=== PATIENT | female | born 1975 | race Caucasian/White ===

== ENCOUNTER 2022-12-28 06:31 | Emergency (ER) | payer SELFPAY ==
[2022-12-28] VITALS (13 sets, daily range): BP systolic 117–170; BP diastolic 88–112; PULSE 83–138; RESP 14–37; TEMP 36.9; O2SAT 93–100
[2022-12-28] MEDS: ONDANSETRON 4 MG/2 ML INJ IV (07:08)
[2022-12-28] MEDS: SODIUM CHLORIDE 0.9% 1,000 ML 1000 ML IV ×2 (07:08→09:35)
[2022-12-28] MEDS: PANTOPRAZOLE 40 MG VIAL 80 MG IV (07:08)
--- NOTE | 2022-12-28 07:19 | ED.GIBLEED ---
HPI - GI Bleed General Chief complaint: GI Bleed Stated complaint: vomiting blood Time Seen by Provider: 12/28/22 06:36 Source: patient Mode of arrival: Wheelchair History of Present Illness HPI Narrative: Patient 47-year-old female who presents today with what she calls dark red blood nausea vomiting. She has definite slurring of speech reports of 1 glass of wine daily but I suspect more she seems to be very intoxicated. She denies any history of varices. She has no specific abdominal pain she is actually shaky. No jaundice. No fever. Her partner at bedside is very worried but not a great historian Related Data Previous Rx's Medication Instructions Recorded ondansetron 4 mg disintegrating 4 mg PO Q8H PRN nausea and 12/28/22 tablet vomiting #10 tabs Allergies Allergy/AdvReac Type Severity Reaction Status Date / Time codeine Allergy Verified 12/28/22 07:18 morphine Allergy Verified 12/28/22 07:18 Penicillins Allergy Verified 12/28/22 07:18 Review of Systems Review of Systems ROS Unobtainable: All systems reviewed & are unremarkable except as noted in HPI and below Patient History Social History Smoking Status: Current every day smoker Smoking Status: Current every day smoker alcohol intake frequency: 0-2 drinks per day Substance Use Type: crack/cocaine Exam Initial Vital Signs Initial Vital Signs: Vital Signs Temperature 98.5 F 12/28/22 06:40 Pulse Rate 138 H 12/28/22 06:40 Respiratory Rate 16 12/28/22 06:40 Blood Pressure 117/88 12/28/22 06:40 Pulse Oximetry 97 12/28/22 06:40 Oxygen Delivery Method Room Air 12/28/22 06:40 GENERAL: Alert intoxicated appearing 47-year-old female, stuttering and slurring of speech HEENT: Head atraumatic,EOMI, pupils reactive, face symmetric, moist mucous membranes CARDIOVASCULAR: Tachycardic regular RESPIRATORY: Breath sounds equal bilaterally, no wheezes rales or rhonchi. ABDOMEN: Soft, nontender. Normoactive bowel sounds all 4 quadrants. No guarding or rebound. EXTREMITIES: Normal range of motion, no clubbing or edema. Neurovascularly intact NEUROLOGICAL: Alert and oriented x4. Moving all extremities shaking tremors SKIN: Warm, dry, no laceration, no petechiae, no rashes or lesions. Course Orders Ordered: ED Orders 12/28/22 07:10 Acetaminophen Stat Complete Blood Count AUTO DIFF Stat Comprehensive Metabolic Panel Stat ETOH [Ethanol (ETOH)] Stat Lactate (Lactic Acid) Stat Lipase Stat Lipase Stat PT [Prothrombin Time INR] Stat PTT Partial Thromboplastin Aryan Stat Test Serum,Qual Stat Procalcitonin Stat Salicylate Stat 12/28/22 07:30 Ammonia (NH3) Stat Type and Screen Stat 12/28/22 07:39 CT angio Abd/Pel GI Bleed Stat 12/28/22 08:10 Urinalysis and Microscopic Stat Urine Culture Stat Urine Drug Screen, Rapid Stat 12/28/22 08:46 Stool Culture Stat 12/28/22 09:25 EKG-12 Lead Routine 12/28/22 09:39 Hemoglobin and Hematocrit Stat 12/28/22 11:22 Lactate (Lactic Acid) Stat Discontinued Medications Sodium Chloride (Normal Saline 0.9%) 1,000 mls @ 1,000 mls/hr IV BOLUS ONE Stop: 12/28/22 07:36 Last Infusion: 12/28/22 08:30 Dose: Infused Documented By: Admin: 12/28/22 07:08 Dose: 1,000 mls/hr Documented By: KACEY Sodium Chloride (Normal Saline 0.9%) 1,000 mls @ 1,000 mls/hr IV BOLUS ONE Stop: 12/28/22 10:12 Last Infusion: 12/28/22 10:30 Dose: Infused Documented By: Admin: 12/28/22 09:35 Dose: 1,000 mls/hr Documented By: HIREN Ceftriaxone Sodium 1,000 mg/ (Sodium Chloride) 100 mls @ 200 mls/hr IV NOW ONE Stop: 12/28/22 09:14 Last Infusion: 12/28/22 10:24 Dose: Infused Documented By: Admin: 12/28/22 09:34 Dose: 200 mls/hr Documented By: HIREN POTASSIUM CHLORIDE IN WATER (Potassium Cl 10 Meq/100 Ml Ashley) 10 meq in 100 mls @ 100 mls/hr IV Q1H AUBREY Stop: 12/28/22 14:29 Last Admin: 12/28/22 11:49 Dose: Not Given Documented By: Admin: 12/28/22 11:48 Dose: Not Given Documented By: Infusion: 12/28/22 11:48 Dose: Infused Documented By: Admin: 12/28/22 10:37 Dose: 100 mls/hr Documented By: HIREN Lorazepam (Lorazepam 2 Mg/Ml Inj) 1 mg IV NOW ONE Stop: 12/28/22 07:26 Last Admin: 12/28/22 08:02 Dose: 1 mg Documented By: HIREN Ondansetron HCl (Ondansetron 4 Mg/2 Ml Inj) 4 mg IV NOW ONE Stop: 12/28/22 06:38 Last Admin: 12/28/22 07:08 Dose: 4 mg Documented By: KACEY Pantoprazole Sodium (Pantoprazole 40 Mg Vial) 80 mg IV NOW ONE Stop: 12/28/22 06:56 Last Admin: 12/28/22 07:08 Dose: 80 mg Documented By: KACEY Potassium Chloride (Potassium Chloride 20 Meq Tab) 40 meq PO NOW ONE Stop: 12/28/22 10:32 Last Admin: 12/28/22 10:35 Dose: 40 meq Documented By: HIREN Vital Signs Vital signs: Vital Signs - 8 hr 12/28/22 06:40 12/28/22 07:20 12/28/22 07:22 Temperature 98.5 F Pulse Rate 138 H 95 H 92 H Respiratory Rate 16 26 H 27 H Blood Pressure 117/88 Pulse Oximetry 97 100 100 Oxygen Delivery Method Room Air 12/28/22 07:22 12/28/22 07:30 12/28/22 07:30 Temperature Pulse Rate 97 H Respiratory Rate Blood Pressure 161/107 H 170/112 H Pulse Oximetry 100 Oxygen Delivery Method 12/28/22 08:05 12/28/22 08:06 12/28/22 08:06 Temperature Pulse Rate 89 85 Respiratory Rate 17 14 Blood Pressure 148/94 H Pulse Oximetry 99 100 Oxygen Delivery Method 12/28/22 08:30 12/28/22 09:00 12/28/22 09:30 Temperature Pulse Rate 94 H 86 97 H Respiratory Rate 37 H 18 18 Blood Pressure Pulse Oximetry 99 98 98 Oxygen Delivery Method 12/28/22 10:00 12/28/22 10:30 12/28/22 11:00 Temperature Pulse Rate 89 105 H 83 Respiratory Rate 26 H 20 18 Blood Pressure Pulse Oximetry 98 93 99 Oxygen Delivery Method 12/28/22 11:11 12/28/22 11:11 Temperature Pulse Rate 88 Respiratory Rate 25 H Blood Pressure 149/105 H Pulse Oximetry 99 Oxygen Delivery Method MDM - GI Bleed Lab Data 12/28/22 09:39 12/28/22 07:10 Labs: Lab Results 12/28/22 12/28/22 12/28/22 Range/Units 07:10 07:10 07:30 WBC 2.2 L (4.5-11.0) X10^3/uL RBC 4.27 (4.0-5.2) X10^6/uL Hgb 14.6 (12.0-16.0) g/dL Hct 41.8 (36-46) % MCV 97.8 (80-100) fL MCH 34.3 H (26-34) PG MCHC 35.0 (30-36) % RDW 11.2 L (11.6-14.8) % Plt Count 67 L (150-400) X10^3/uL Neut % (Auto) Not Reportable Lymph % (Auto) Not Reportable [place] % (Auto) Not Reportable Eos % (Auto) Not Reportable Baso % (Auto) Not Reportable Lymph # (Auto) Not Reportable [place] # (Auto) Not Reportable Baso # (Auto) Not Reportable Total Counted 100 Seg Neutrophils % 46.0 (38-70) % Band Neutrophils % 1.0 L (3-7) % Lymphocytes % (Manual) 34.0 (25-45) % Monocytes % (Manual) 13.0 H (2-11) % Eosinophils % (Manual) 3.0 (2-4) % Basophils % (Manual) 1.0 (0-1) % Metamyelocytes % 2.0 H (-0) % Neutrophils # (Manual) 1034 L (9923-1063) /uL RBC Morphology Normal morphology PT 12.7 (10.1-12.7) SECONDS INR 1.1 (0.9-1.3) APTT 27 (26-36) SECONDS Sodium 134 L (137-145) mmol/L Potassium 2.8 L (3.4-5.1) mmol/L Chloride 91 L (98-107) mmol/L Carbon Dioxide 27 (22-32) mmol/L BUN 6 L (7-17) mg/dL Creatinine 0.63 (0.52-1.04) mg/dL Estimated GFR > 60 (>60) mL/min BUN/Creatinine Ratio 9.5 (6-22) Glucose 78 (70-100) mg/dL Lactate 3.4 H (0.7-2.1) mmol/L Calcium 9.0 (8.4-10.2) mg/dL Total Bilirubin 2.5 H (0.2-1.3) mg/dL AST 135 H (14-36) IU/L ALT 40 H (<35) IU/L Alkaline Phosphatase 81 (38-126) U/L Ammonia 12 (9-30) umol/L Total Protein 7.3 (6.3-8.2) g/dL Albumin 4.2 (3.5-5.0) g/dL Globulin 3.1 (1.7-4.1) g/dL Albumin/Globulin Ratio 1.4 (1.0-2.8) Lipase 250 246 (23-300) U/L Procalcitonin 0.11 (<0.5) ng/mL Serum , Qual Negative (Negative) Urine Color Urine Appearance Urine pH (4.5-8.0) Ur Specific [place] (1.000-1.035) Urine Protein (Negative) Urine Glucose (UA) (Negative) g/dL Urine Ketones (NEGATIVE) Urine Occult Blood (Negative) Urine Nitrate (Negative) Urine Bilirubin (NEGATIVE) Urine Urobilinogen (0.2) E.U./dL Ur Leukocyte Esterase (NEGATIVE) Urine RBC (0-5/HPF) Urine WBC (0-5/HPF) Ur Squamous Epith Cells (0-5/HPF) Urine Bacteria (None) Ur Culture Indicated? Salicylates < 1.0 (<20) mg/dL U Opiates 300ng/mL cut (Negative) Ur Oxycodone Screen (Negative) Urine Methadone Screen (Negative) Acetaminophen < 10 (10-30) ug/mL Ur Barbiturates Screen (Negative) U Tricyclic Antidepress (Negative) Ur Phencyclidine Scrn (Negative) Ur Amphetamines Screen (Negative) U Methamphetamines Scrn (Negative) Ur MDMA Scrn (Ecstasy) (Negative) U Benzodiazepines Scrn (Negative) Urine Cocaine Screen (Negative) U Marijuana (THC) Screen (Negative) Ethyl Alcohol 230 H ( - 10) mg/dL Blood Type A Positive Antibody Screen Negative 12/28/22 12/28/22 12/28/22 Range/Units 08:10 09:06 09:39 WBC (4.5-11.0) X10^3/uL RBC (4.0-5.2) X10^6/uL Hgb 14.0 (12.0-16.0) g/dL Hct 40.2 (36-46) % MCV (80-100) fL MCH (26-34) PG MCHC (30-36) % RDW (11.6-14.8) % Plt Count (150-400) X10^3/uL Neut % (Auto) Lymph % (Auto) [place] % (Auto) Eos % (Auto) Baso % (Auto) Lymph # (Auto) [place] # (Auto) Baso # (Auto) Total Counted Seg Neutrophils % (38-70) % Band Neutrophils % (3-7) % Lymphocytes % (Manual) (25-45) % Monocytes % (Manual) (2-11) % Eosinophils % (Manual) (2-4) % Basophils % (Manual) (0-1) % Metamyelocytes % (-0) % Neutrophils # (Manual) (3460-0415) /uL RBC Morphology PT (10.1-12.7) SECONDS INR (0.9-1.3) APTT (26-36) SECONDS Sodium (137-145) mmol/L Potassium (3.4-5.1) mmol/L Chloride (98-107) mmol/L Carbon Dioxide (22-32) mmol/L BUN (7-17) mg/dL Creatinine (0.52-1.04) mg/dL Estimated GFR (>60) mL/min BUN/Creatinine Ratio (6-22) Glucose (70-100) mg/dL Lactate 2.8 H (0.7-2.1) mmol/L Calcium (8.4-10.2) mg/dL Total Bilirubin (0.2-1.3) mg/dL AST (14-36) IU/L ALT (<35) IU/L Alkaline Phosphatase (38-126) U/L Ammonia (9-30) umol/L Total Protein (6.3-8.2) g/dL Albumin (3.5-5.0) g/dL Globulin (1.7-4.1) g/dL Albumin/Globulin Ratio (1.0-2.8) Lipase (23-300) U/L Procalcitonin (<0.5) ng/mL Serum , Qual (Negative) Urine Color Yellow Urine Appearance Clear Urine pH 6.5 (4.5-8.0) Ur Specific [place] 1.010 (1.000-1.035) Urine Protein Negative (Negative) Urine Glucose (UA) Negative (Negative) g/dL Urine Ketones 1+ H (NEGATIVE) Urine Occult Blood Negative (Negative) Urine Nitrate Positive H (Negative) Urine Bilirubin Negative (NEGATIVE) Urine Urobilinogen 4.0 H (0.2) E.U./dL Ur Leukocyte Esterase Negative (NEGATIVE) Urine RBC None seen (0-5/HPF) Urine WBC 1-5/hpf (0-5/HPF) Ur Squamous Epith Cells 5-10 /hpf H (0-5/HPF) Urine Bacteria Moderate (10-30) H (None) Ur Culture Indicated? Specimen cultured Salicylates (<20) mg/dL U Opiates 300ng/mL cut Negative (Negative) Ur Oxycodone Screen Negative (Negative) Urine Methadone Screen Negative (Negative) Acetaminophen (10-30) ug/mL Ur Barbiturates Screen Negative (Negative) U Tricyclic Antidepress Negative (Negative) Ur Phencyclidine Scrn Negative (Negative) Ur Amphetamines Screen Negative (Negative) U Methamphetamines Scrn Negative (Negative) Ur MDMA Scrn (Ecstasy) Negative (Negative) U Benzodiazepines Scrn Negative (Negative) Urine Cocaine Screen Positive H (Negative) U Marijuana (THC) Screen Negative (Negative) Ethyl Alcohol ( - 10) mg/dL Blood Type Antibody Screen 12/28/22 Range/Units 11:22 WBC (4.5-11.0) X10^3/uL RBC (4.0-5.2) X10^6/uL Hgb (12.0-16.0) g/dL Hct (36-46) % MCV (80-100) fL MCH (26-34) PG MCHC (30-36) % RDW (11.6-14.8) % Plt Count (150-400) X10^3/uL Neut % (Auto) Lymph % (Auto) [place] % (Auto) Eos % (Auto) Baso % (Auto) Lymph # (Auto) [place] # (Auto) Baso # (Auto) Total Counted Seg Neutrophils % (38-70) % Band Neutrophils % (3-7) % Lymphocytes % (Manual) (25-45) % Monocytes % (Manual) (2-11) % Eosinophils % (Manual) (2-4) % Basophils % (Manual) (0-1) % Metamyelocytes % (-0) % Neutrophils # (Manual) (8579-1611) /uL RBC Morphology PT (10.1-12.7) SECONDS INR (0.9-1.3) APTT (26-36) SECONDS Sodium (137-145) mmol/L Potassium (3.4-5.1) mmol/L Chloride (98-107) mmol/L Carbon Dioxide (22-32) mmol/L BUN (7-17) mg/dL Creatinine (0.52-1.04) mg/dL Estimated GFR (>60) mL/min BUN/Creatinine Ratio (6-22) Glucose (70-100) mg/dL Lactate 2.4 H (0.7-2.1) mmol/L Calcium (8.4-10.2) mg/dL Total Bilirubin (0.2-1.3) mg/dL AST (14-36) IU/L ALT (<35) IU/L Alkaline Phosphatase (38-126) U/L Ammonia (9-30) umol/L Total Protein (6.3-8.2) g/dL Albumin (3.5-5.0) g/dL Globulin (1.7-4.1) g/dL Albumin/Globulin Ratio (1.0-2.8) Lipase (23-300) U/L Procalcitonin (<0.5) ng/mL Serum , Qual (Negative) Urine Color Urine Appearance Urine pH (4.5-8.0) Ur Specific [place] (1.000-1.035) Urine Protein (Negative) Urine Glucose (UA) (Negative) g/dL Urine Ketones (NEGATIVE) Urine Occult Blood (Negative) Urine Nitrate (Negative) Urine Bilirubin (NEGATIVE) Urine Urobilinogen (0.2) E.U./dL Ur Leukocyte Esterase (NEGATIVE) Urine RBC (0-5/HPF) Urine WBC (0-5/HPF) Ur Squamous Epith Cells (0-5/HPF) Urine Bacteria (None) Ur Culture Indicated? Salicylates (<20) mg/dL U Opiates 300ng/mL cut (Negative) Ur Oxycodone Screen (Negative) Urine Methadone Screen (Negative) Acetaminophen (10-30) ug/mL Ur Barbiturates Screen (Negative) U Tricyclic Antidepress (Negative) Ur Phencyclidine Scrn (Negative) Ur Amphetamines Screen (Negative) U Methamphetamines Scrn (Negative) Ur MDMA Scrn (Ecstasy) (Negative) U Benzodiazepines Scrn (Negative) Urine Cocaine Screen (Negative) U Marijuana (THC) Screen (Negative) Ethyl Alcohol ( - 10) mg/dL Blood Type Antibody Screen Imaging Data CT scan - abdomen/pelvis: Radiologist's Impression: PROCEDURE: CT ANGIO ABD/PEL GI BLEED INDICATIONS: GI Bleed-vomiting TECHNIQUE: After the administration of intravenous contrast, 2.5 mm thick sections acquired from the diaphragm to the symphysis. 10 mm maximum-intensity projection (MIP) reformats were then acquired. For radiation dose reduction, the following was used: automated exposure control. COMPARISON: None. FINDINGS: Image quality: Excellent. Aorta: No areas of hemodynamically significant stenosis, vascular occlusion, aneurysmal dilation or dissection. Mesenteric arteries: Celiac trunk, superior and inferior mesenteric arteries appear patent. There are no areas of visualized extravasation. Right pelvic arteries: Widely patent. Left pelvic arteries: Widely patent. Extravascular soft tissues: Lung bases are clear. Heart size is normal. Liver is borderline enlarged with significant fatty infiltration. Gallbladder is unremarkable . Biliary system is non dilated. Pancreas enhances normally. Spleen is normal in size and enhancement. No adrenal nodules. Kidneys are normal in size and enhancement, without hydronephrosis. Non opacified bowel loops are normal in wall thickness and caliber. Stomach is diffusely thickened as well as incompletely distended. No free fluid or air. No retroperitoneal or mesenteric adenopathy. No ventral hernias. No suspicious bony lesions. No vertebral body compression fractures. Bilateral breast implants are present. IMPRESSION: No arterial cause of hemorrhage. Gastric rizzo are thickened with incomplete distention. This markedly limits evaluation. If this region remains of concern, further evaluation with endoscopy is recommended. Significant hepatic steatosis. Dictated by: Tessy Ballard M.D. on 12/28/2022 at 8:35 ECG Data Interpretation: Normal sinus rhythm rate 88 NE interval 140 QRS 82 QTC 505 MDM Narrative Medical decision making narrative: Patient 47-year-old female presents today with nausea vomiting. She is intoxicated with alcohol level 230 and a drug screen positive for cocaine. She has not vomited here in the ED after 1 dose of Zofran and Protonix. She actually has eating a donut and add something else to drink. She was given a dose of Ativan as well she is overall feeling better. Hemoglobin hematocrit 14/41, with repeat the same. Potassium is 2.8 with a lactate of 3.4 that improved with with fluids to 2.8. She has a bilirubin of 2.5 AST 135 ALT 40. Also noted to have leukopenia with platelets 67. Her labs would suggest that she is indeed an alcoholic. She is not vomiting bright red blood hemoglobin stable. Potassium is a little low. It was replaced she keeps down oral potassium in his given 20 IV. She was given Protonix. CT does not show any cause arterial hemorrhage gastric rizzo show incomplete distention and can not fully be evaluated She tolerated p.o. potassium she is been eating and drinking not in acute withdrawal at this time but did like the Ativan at this time she would like to go home which is very reasonable Discharge Plan Departure Patient Disposition: Home Clinical Impression: Alcohol intoxication, Cocaine use disorder, Acute hypokalemia, Thrombocytopenia Instructions: Alcohol Use Disorder Activity Restrictions/Additional Instructions: *You have been diagnosed with polysubstance use, vomiting, low potassium *What to do: At this time I do strongly recommend that you stop drinking alcohol. This is causing damage to your liver and your body. I strongly recommend that you go to detox if you decide to get sober. Do not quit alcohol on your own *Continue to take medications as directed *Follow up with your primary care provider in 2-3 days or call [phone] *Return to ER if you should have persistent vomiting or any new, worsening or concerning symptoms Prescriptions: New ondansetron 4 mg tablet,disintegrating 4 mg PO Q8H PRN (Reason: nausea and vomiting) Qty: 10 0RF Referrals: Miscellaneous,Doctor, MD [Primary Care Provider] - Stand Alone Forms: Patient Portal/API
[2022-12-28 07:25] LABS: Add Manual Diff / Slide Review YES; Hematocrit 41.8 % (36-46); Hemoglobin 14.6 g/dL (12.0-16.0); Mean Corpuscular Hemoglobin 34.3 PG (26-34); Mean Corpuscular Volume 97.8 fL (80-100); Platelet Count 67 X10^3/uL (150-400); Red Blood Cell Count 4.27 X10^6/uL (4.0-5.2); Red Cell Distribution Width 11.2 % (11.6-14.8); White Blood Cell Count 2.2 X10^3/uL (4.5-11.0)
[2022-12-28 07:29] LABS: INR 1.1 (0.9-1.3); Prothrombin Time 12.7 SECONDS (10.1-12.7)
[2022-12-28 07:32] LABS: PTT Partial Thromboplastin Tim 27 SECONDS (26-36)
[2022-12-28 07:34] LABS: Lactate (Lactic Acid) 3.4 mmol/L (0.7-2.1)
[2022-12-28 07:35] LABS: Alanine Aminotransferase 40 IU/L (<35); Albumin 4.2 g/dL (3.5-5.0); Albumin Globulin Ratio 1.4 (1.0-2.8); Alkaline Phosphatase 81 U/L (38-126); Aspartate Aminotransferase 135 IU/L (14-36); BUN Creatinine Ratio 9.5 (6-22); Bilirubin Total 2.5 mg/dL (0.2-1.3); Blood Urea Nitrogen 6 mg/dL (7-17); Carbon Dioxide 27 mmol/L (22-32); Chloride 91 mmol/L (98-107); Estimated Glomerular Filt Rate > 60 mL/min (>60); Globulin 3.1 g/dL (1.7-4.1); Glucose 78 mg/dL (70-100); HEMOLYSIS 26 (0-50); Potassium 2.8 mmol/L (3.4-5.1); Sodium 134 mmol/L (137-145); Total Protein 7.3 g/dL (6.3-8.2)
[2022-12-28 07:36] LABS: Ethanol (ETOH) 230 mg/dL; Lipase 250 U/L (23-300)
--- NOTE | 2022-12-28 07:39 | DI.CT.S_ITS ---
PROCEDURE: CT ANGIO ABD/PEL GI BLEED INDICATIONS: GI Bleed-vomiting TECHNIQUE: After the administration of intravenous contrast, 2.5 mm thick sections acquired from the diaphragm to the symphysis. 10 mm maximum-intensity projection (MIP) reformats were then acquired. For radiation dose reduction, the following was used: automated exposure control. COMPARISON: None. FINDINGS: Image quality: Excellent. Aorta: No areas of hemodynamically significant stenosis, vascular occlusion, aneurysmal dilation or dissection. Mesenteric arteries: Celiac trunk, superior and inferior mesenteric arteries appear patent. There are no areas of visualized extravasation. Right pelvic arteries: Widely patent. Left pelvic arteries: Widely patent. Extravascular soft tissues: Lung bases are clear. Heart size is normal. Liver is borderline enlarged with significant fatty infiltration. Gallbladder is unremarkable . Biliary system is non dilated. Pancreas enhances normally. Spleen is normal in size and enhancement. No adrenal nodules. Kidneys are normal in size and enhancement, without hydronephrosis. Non opacified bowel loops are normal in wall thickness and caliber. Stomach is diffusely thickened as well as incompletely distended. No free fluid or air. No retroperitoneal or mesenteric adenopathy. No ventral hernias. No suspicious bony lesions. No vertebral body compression fractures. Bilateral breast implants are present. IMPRESSION: No arterial cause of hemorrhage. Gastric rizzo are thickened with incomplete distention. This markedly limits evaluation. If this region remains of concern, further evaluation with endoscopy is recommended. Significant hepatic steatosis. Dictated by: Tessy Ballard M.D. on 12/28/2022 at 8:35 Approved by: Tessy Ballard M.D. on 12/28/2022 at 8:39
[2022-12-28 07:50] LABS: Ammonia (NH3) 12 umol/L (9-30)
[2022-12-28 07:51] LABS: Pregnancy Test Serum,Qual Negative (Negative)
[2022-12-28 07:52] LABS: Acetaminophen < 10 ug/mL (10-30); Lipase 246 U/L (23-300); Salicylate < 1.0 mg/dL (<20)
--- NOTE | 2022-12-28 07:57 | PC.NURSE ---
Pt reports that she has been experiencing ongoing nausea and bloody vomit. Describes the emisis as blood streaks and coffee grounds and states that she has a 10/10 pain in abd. Pt states that she often has bloody emisis and stools and that it has been happening for weeks and they have been to [facility] emergency dept multiple times. Pt stuttering and slurring her words and having difficulty formulating sentences. Pt reports not using any drugs but admittedly her last drink was last night but could not remember what time. Pt partner at bedside.
[2022-12-28] MEDS: LORazepam 2 MG/ML INJ 1 MG IV (08:02)
[2022-12-28 08:05] LABS: Neutrophils Absolute Manual 1034 /uL (3000-5900); Total Cells Counted 100
[2022-12-28 08:06] LABS: RBC Morphology Normal Morphology
[2022-12-28 08:09] LABS: Procalcitonin 0.11 ng/mL (<0.5)
[2022-12-28 08:46] LABS: Appearance Urine UA CLEAR; Bilirubin Urine UA NEGATIVE (NEGATIVE); Color Urine UA YELLOW; Glucose Urine UA NEGATIVE (Negative); Ketones Urine UA 1+ (NEGATIVE); Leukocyte Esterase Urine UA NEGATIVE (NEGATIVE); Nitrite Urine UA POSITIVE (Negative); Occult Blood Urine UA NEGATIVE (Negative); Protein Urine UA NEGATIVE (Negative); pH Urine UA 6.5 (4.5-8.0)
[2022-12-28 08:48] LABS: UR Morphine/Opiate cutoff 300 Negative (Negative); Ur Creatinine Normal (Normal); Ur Specific Gravity Normal (Normal); Urine Amphetamines Negative (Negative); Urine Barbiturates Negative (Negative); Urine Benzodiazepines Negative (Negative); Urine Cocaine Positive (Negative); Urine MDMA Negative (Negative); Urine Methadone Negative (Negative); Urine Methamphetamines Negative (Negative); Urine Oxycodone Negative (Negative); Urine Phencyclidine Negative (Negative); Urine Tetrahydrocannabinol Negative (Negative); Urine Tricyclic Antidepressant Negative (Negative); Urine pH Normal (Normal)
[2022-12-28 08:51] LABS: Bacteria Urine Moderate (10-30); Culture Indicated Urine Specimen Cultured; RBC Urine None Seen (0-5/HPF); Squamous Epithelial Cell Urine 5-10 /HPF (0-5/HPF); WBC Urine 1-5/HPF (0-5/HPF)
[2022-12-28 08:56] LABS: Reflexed Lactate in 2 Hours Y
[2022-12-28 09:24] LABS: Lactate 2HR (Lactic Acid Rflx) 2.8 mmol/L (0.7-2.1)
[2022-12-28] MEDS: cefTRIAXone 1,000 MG in SODIUM CHLORIDE 0.9% 100 ML 200 MG IV (09:34)
[2022-12-28 09:50] LABS: Hematocrit 40.2 % (36-46)
[2022-12-28] MEDS: POTASSIUM CHLORIDE 20 MEQ TAB 40 MEQ PO (10:35)
[2022-12-28] MEDS: POTASSIUM CHLORIDE IN WATER 10 MEQ/100 ML PIGGYBACK 100 MEQ IV (10:37)
[2022-12-28 11:45] LABS: Lactate (Lactic Acid) 2.4 mmol/L (0.7-2.1)
--- NOTE | 2022-12-28 11:50 | PC.NURSE ---
Only one bag of potassium chloride 10meq infused per dr ramos.
[2022-12-28 13:11] LABS: Reflexed Lactate in 2 Hours Y
== END 2022-12-28 11:45 | disposition home or self-care (01) ==
PROVIDERS: Emergency Medicine; Emergency Provider Emergency Medicine
DX: F10.129 Alcohol abuse with intoxication, unspecified (principal); Y90.7 Blood alcohol level of 200-239 mg/100 ml; F14.10 Cocaine abuse, uncomplicated; E87.6 Hypokalemia; D69.6 Thrombocytopenia, unspecified
CPT/HCPCS: 36415; 74174; 80053; 80305; 80320; 80329; 81001; 82140; 83605; 83690; 84145; 84703; 85007; 85014; 85018; 85025; 85610; 85730; 86850; 86900; 86901; 87086; 93005; 93010; 96361; 96365; 96375; 99284; C9113; G0480; J0696; J2060; J2405; Q9967

== ENCOUNTER 2023-01-14 17:10 | Emergency (ER) | payer SELFPAY ==
[2023-01-14] VITALS (8 sets, daily range): BP systolic 138–172; BP diastolic 85–98; PULSE 79–95; RESP 15–20; TEMP 36.6; O2SAT 93–99; BMI 20.1
--- NOTE | 2023-01-14 17:43 | DI.RAD.S_ITS ---
PROCEDURE: XR CHEST 1V INDICATIONS: syncope TECHNIQUE: One view of the chest was acquired. COMPARISON: None. FINDINGS: Surgical changes and devices: None. Lungs and pleura: Lungs are clear. No pleural effusions or pneumothorax. Mediastinum: Mediastinal contours appear normal. Heart size is normal. Bones and chest wall: No suspicious bony lesions. Rightward curvature of the thoracic spine. Overlying soft tissues appear unremarkable. IMPRESSION: No acute cardiopulmonary abnormality is seen. Dictated by: Jose Contreras M.D. on 01/14/2023 at 17:13 Approved by: Jose Contreras M.D. on 01/14/2023 at 17:14
--- NOTE | 2023-01-14 17:43 | DI.CT.S_ITS ---
PROCEDURE: CT HEAD/BRAIN WO CON INDICATIONS: syncope TECHNIQUE: Noncontrast 4.5 mm thick angled axial sections acquired from the foramen magnum to the vertex, with coronal and sagittal reformats. For radiation dose reduction, the following was used: automated exposure control, adjustment of mA and/or kV according to patient size. COMPARISON: [facility], CT, CT CERVICAL SPINE WO CON, 01/14/2023, 18:03. [facility], CR, XR HIP W PEL IF DONE RT 2V, 01/14/2023, 17:55. [facility], CR, XR ANKLE RT MIN 3V, 01/14/2023, 17:55. [facility], CR, XR CHEST 1V, 01/14/2023, 17:44. FINDINGS: Image quality: Mild streak artifact can be seen through the skull base. CSF spaces: Basal cisterns are patent. No extra-axial fluid collections. Ventricles are normal in size and shape. Brain: No midline shift. No intracranial masses or hemorrhage. Gallegos-white matter interface is normal. Skull and face: Calvarium and visualized facial bones are intact, without suspicious lesions. Sinuses: Visualized sinuses and mastoids are clear. IMPRESSION: No acute intracranial hemorrhage is seen. No acute intracranial pathology. With To the limits of this noncontrast study, no findings masses or mass effect can be seen. Dictated by: Alfie Monte M.D. on 01/14/2023 at 17:21 Approved by: Alfie Monte M.D. on 01/14/2023 at 17:22
--- NOTE | 2023-01-14 17:45 | ED_ITS ---
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 Patient had a syncopal episode while she was in her shower and found her unresponsive but breathing. He apparently performed bystander CPR and called 911. When EMS arrived the patient was initially unresponsive, but when they transferred her to the stretcher she became more responsive and reportedly returned back to baseline. Patient states she is fine now. She does have right ankle pain, right hip pain, right posterior head pain Related Data Previous Rx's Medication Instructions Recorded ondansetron 4 mg disintegrating 4 mg PO Q8H PRN nausea and 12/28/22 tablet vomiting #10 tabs Allergies Allergy/AdvReac Type Severity Reaction Status Date / Time codeine Allergy Verified 12/28/22 07:18 morphine Allergy Verified 12/28/22 07:18 Penicillins Allergy Verified 12/28/22 07:18 Review of Systems <Mare Meek MD - Last Filed: 01/19/23 18:25> Review of Systems Narrative: Negative except as noted above Patient History <Mare Meek MD - Last Filed: 01/19/23 18:25> Social History Smoking Status: Current every day smoker Smoking Status: Current every day smoker alcohol intake frequency: 0-2 drinks per day Substance Use Type: crack/cocaine Exam <Mare Meek MD - Last Filed: 01/19/23 18:25> Initial Vital Signs Initial Vital Signs: Vital Signs Temperature 97.8 F 01/14/23 17:05 Pulse Rate 88 01/14/23 17:05 Respiratory Rate 20 01/14/23 17:05 Blood Pressure 172/98 H 01/14/23 17:05 Pulse Oximetry 99 01/14/23 17:05 Oxygen Delivery Method Room Air 01/14/23 17:05 Const: Awake, alert, no acute distress, nontoxic appearing Eyes: PERRL, EOMI, conjunctiva normal ENT: Atraumatic, dentition normal, mucous membranes moist Cardiac: regular rate, regular rhythm RESP: unlabored, clear bilaterally, no wheezing GI: Atraumatic, soft, nontender, nondistended, no rebound, no guarding MSK: Atraumatic, full range of motion, pulses equal Skin: Warm, Dry, intact Neuro: AO x3, CN II-XII grossly intact, stuttering speech (baseline) Psych: affect normal, mood normal, not suicidal, not homicidal <Melida Magana DO - Last Filed: 01/15/23 02:35> Initial Vital Signs Initial Vital Signs: Vital Signs Temperature 97.8 F 01/14/23 17:05 Pulse Rate 88 01/14/23 17:05 Respiratory Rate 20 01/14/23 17:05 Blood Pressure 172/98 H 01/14/23 17:05 Pulse Oximetry 99 01/14/23 17:05 Oxygen Delivery Method Room Air 01/14/23 17:05 Course <Mare Meek MD - Last Filed: 01/19/23 18:25> Course Course Narrative: Syncopal episode in shower. Now returned to baseline. Patient does not remember any of the events leading up to the syncopal episode. Patient does endorse alcohol use this evening. Since patient had head trauma during syncope will order CT C-spine and CT brain. Also reporting right hip and right ankle pain, x-rays of these areas are ordered. IV thiamine and folic acid ordered via IV. Care of patient signed to Dr. Magana at 1800 Orders Ordered: Discontinued Medications Folic Acid (Folic Acid 1 Mg Tablet) 1 mg PO NOW ONE Stop: 01/14/23 17:54 Last Admin: 01/14/23 18:07 Dose: 1 mg Documented By: ILANA Thiamine HCl 100 mg/ Sodium (Chloride) 101 mls @ 404 mls/hr IV NOW ONE Stop: 01/14/23 17:54 Last Infusion: 01/14/23 18:50 Dose: Infused Documented By: Infusion: 01/14/23 18:37 Dose: 404 mls/hr Documented By: Infusion: 01/14/23 18:10 Dose: 0 mls/hr Documented By: Admin: 01/14/23 18:07 Dose: 404 mls/hr Documented By: ILANA Vital Signs Vital signs: Vital Signs - 8 hr 01/14/23 18:57 01/14/23 18:58 01/14/23 18:58 Pulse Rate 92 H 86 Respiratory Rate Blood Pressure 144/85 H Pulse Oximetry 98 98 Oxygen Delivery Method Room Air Room Air 01/14/23 19:00 01/14/23 19:00 Pulse Rate 79 Respiratory Rate 15 Blood Pressure 138/88 Pulse Oximetry 97 Oxygen Delivery Method Room Air <Melida Magana DO - Last Filed: 01/15/23 02:35> Orders Ordered: Discontinued Medications Folic Acid (Folic Acid 1 Mg Tablet) 1 mg PO NOW ONE Stop: 01/14/23 17:54 Last Admin: 01/14/23 18:07 Dose: 1 mg Documented By: ILANA Thiamine HCl 100 mg/ Sodium (Chloride) 101 mls @ 404 mls/hr IV NOW ONE Stop: 01/14/23 17:54 Last Infusion: 01/14/23 18:50 Dose: Infused Documented By: Infusion: 01/14/23 18:37 Dose: 404 mls/hr Documented By: Infusion: 01/14/23 18:10 Dose: 0 mls/hr Documented By: Admin: 01/14/23 18:07 Dose: 404 mls/hr Documented By: ILANA Vital Signs Vital signs: Vital Signs - 8 hr 01/14/23 18:57 01/14/23 18:58 01/14/23 18:58 Pulse Rate 92 H 86 Respiratory Rate Blood Pressure 144/85 H Pulse Oximetry 98 98 Oxygen Delivery Method Room Air Room Air 01/14/23 19:00 01/14/23 19:00 Pulse Rate 79 Respiratory Rate 15 Blood Pressure 138/88 Pulse Oximetry 97 Oxygen Delivery Method Room Air MDM - Syncope <Mare Meek MD - Last Filed: 01/19/23 18:25> Differential Diagnosis Differential diagnosis: Likely syncope due to orthostatic hypotension, vasovagal syncope and other (alcohol intoxication) Lab Data 01/14/23 17:35 01/14/23 17:35 Labs: Lab Results 01/14/23 Range/Units 17:35 WBC 4.1 L (4.5-11.0) X10^3/uL RBC 4.21 (4.0-5.2) X10^6/uL Hgb 14.1 (12.0-16.0) g/dL Hct 41.1 (36-46) % MCV 97.6 (80-100) fL MCH 33.5 (26-34) PG MCHC 34.4 (30-36) % RDW 12.4 (11.6-14.8) % Plt Count 122 L (150-400) X10^3/uL Neut % (Auto) 33.7 L (50-75) % Lymph % (Auto) 47.1 H (25-40) % [place] % (Auto) 16.4 H (3-14) % Eos % (Auto) 0.8 L (2-4) % Baso % (Auto) 2.0 (0-2) % Neut # (Auto) 1400 L (9530-4278) /uL Lymph # (Auto) 1900 (3152-0268) /uL [place] # (Auto) 700 (0-900) /uL Eos # (Auto) 0 (0-450) /uL Baso # (Auto) 100 (0-100) /uL PT 12.7 H (9.4-12.5) SECONDS INR 1.1 (0.9-1.3) Sodium 140 (137-145) mmol/L Potassium 3.2 L (3.4-5.1) mmol/L Chloride 98 (98-107) mmol/L Carbon Dioxide 30 (22-32) mmol/L BUN 6 L (7-17) mg/dL Creatinine 0.70 (0.52-1.04) mg/dL Estimated GFR > 60 (>60) mL/min BUN/Creatinine Ratio 8.6 (6-22) Glucose 85 (70-100) mg/dL Calcium 8.9 (8.4-10.2) mg/dL Total Bilirubin 1.9 H (0.2-1.3) mg/dL AST 253 H (14-36) IU/L ALT 87 H (<35) IU/L Alkaline Phosphatase 107 (38-126) U/L Troponin I < 0.012 (0.01-0.034) ng/mL Total Protein 7.9 (6.3-8.2) g/dL Albumin 4.2 (3.5-5.0) g/dL Globulin 3.7 (1.7-4.1) g/dL Albumin/Globulin Ratio 1.1 (1.0-2.8) Ethyl Alcohol 353 H ( - 10) mg/dL <Melida Izzy, DO - Last Filed: 01/15/23 02:35> Lab Data Labs: Lab Results 01/14/23 Range/Units 17:35 WBC 4.1 L (4.5-11.0) X10^3/uL RBC 4.21 (4.0-5.2) X10^6/uL Hgb 14.1 (12.0-16.0) g/dL Hct 41.1 (36-46) % MCV 97.6 (80-100) fL MCH 33.5 (26-34) PG MCHC 34.4 (30-36) % RDW 12.4 (11.6-14.8) % Plt Count 122 L (150-400) X10^3/uL Neut % (Auto) 33.7 L (50-75) % Lymph % (Auto) 47.1 H (25-40) % [place] % (Auto) 16.4 H (3-14) % Eos % (Auto) 0.8 L (2-4) % Baso % (Auto) 2.0 (0-2) % Neut # (Auto) 1400 L (3605-6984) /uL Lymph # (Auto) 1900 (8659-9806) /uL [place] # (Auto) 700 (0-900) /uL Eos # (Auto) 0 (0-450) /uL Baso # (Auto) 100 (0-100) /uL PT 12.7 H (9.4-12.5) SECONDS INR 1.1 (0.9-1.3) Sodium 140 (137-145) mmol/L Potassium 3.2 L (3.4-5.1) mmol/L Chloride 98 (98-107) mmol/L Carbon Dioxide 30 (22-32) mmol/L BUN 6 L (7-17) mg/dL Creatinine 0.70 (0.52-1.04) mg/dL Estimated GFR > 60 (>60) mL/min BUN/Creatinine Ratio 8.6 (6-22) Glucose 85 (70-100) mg/dL Calcium 8.9 (8.4-10.2) mg/dL Total Bilirubin 1.9 H (0.2-1.3) mg/dL AST 253 H (14-36) IU/L ALT 87 H (<35) IU/L Alkaline Phosphatase 107 (38-126) U/L Troponin I < 0.012 (0.01-0.034) ng/mL Total Protein 7.9 (6.3-8.2) g/dL Albumin 4.2 (3.5-5.0) g/dL Globulin 3.7 (1.7-4.1) g/dL Albumin/Globulin Ratio 1.1 (1.0-2.8) Ethyl Alcohol 353 H ( - 10) mg/dL ECG Data Interpretation: Normal sinus rhythm rate 68 IN interval 152 QRS [address] changes MDM Narrative Medical decision making narrative: Dr. Magana-patient signed out to me by Dr. Meek I have seen evaluated patient might self. She has stuttering she has had previously. Labs been reviewed reports that she has Gilbert's disease which is why her bilirubin and liver enzymes are elevated however alcohol level today is 353 previously 230. She has no right upper quadrant pain. Bilirubin 1.9, AST 253, ALT 87. Similar to previous. Imaging has been reviewed including hip x-ray, has ankle x-ray, head CT cervical spine CT and chest x-ray there is no abnormality on any imaging. At this time she ambulates very easily with walkers. She reports that she is a cane at home. also seems intoxicated a taxi cab in [place] is called for them. Discharge Plan Departure Patient Disposition: Home Clinical Impression: Alcohol intoxication Instructions: Alcohol Use Disorder Activity Restrictions/Additional Instructions: *You have been diagnosed with alcohol intoxication *What to do: This time alcohol level is 353. I recommend that you go to detox from alcohol *Continue to take medications as directed *Follow up with your primary care provider in 2-3 days or call [phone] *Return to ER if you should have increasing confusion difficulty walking fall or any new, worsening or concerning symptoms Prescriptions: No Action ondansetron 4 mg tablet,disintegrating 4 mg PO Q8H PRN (Reason: nausea and vomiting) Qty: 10 0RF Referrals: Miscellaneous,Doctor, MD [Primary Care Provider] - Stand Alone Forms: Patient Portal/API
--- NOTE | 2023-01-14 17:46 | DI.RAD.S_ITS ---
PROCEDURE: XR HIP W PEL IF DONE RT 2V INDICATIONS: syncope, hip pain TECHNIQUE: AP pelvis with lateral view(s) of the right hip(s). COMPARISON: [facility], CT, CT HEAD/BRAIN WO CON, 01/14/2023, 18:03. [facility], CT, CT CERVICAL SPINE WO CON, 01/14/2023, 18:03. [facility], CR, XR ANKLE RT MIN 3V, 01/14/2023, 17:55. [facility], CR, XR CHEST 1V, 01/14/2023, 17:44. FINDINGS: Bones: No fractures or dislocations. Pelvic ring appears intact. No suspicious bony lesions. Soft tissues: The visualized bowel gas pattern is normal. No suspicious soft tissue calcifications. Pelvic phleboliths are incidentally noted. IMPRESSION: No acute bony abnormality. Dictated by: Alfie Monte M.D. on 01/14/2023 at 17:25 Approved by: Alfie Monte M.D. on 01/14/2023 at 17:25
--- NOTE | 2023-01-14 17:46 | DI.CT.S_ITS ---
PROCEDURE: CT CERVICAL SPINE WO CON INDICATIONS: syncope in shower, neck pain TECHNIQUE: Noncontrast 3 mm thick sections acquired from the skull base to the T4 level. Sagittal and coronal reformats were then constructed. For radiation dose reduction, the following was used: automated exposure control, adjustment of mA and/or kV according to patient size. COMPARISON: [facility], CT, CT HEAD/BRAIN WO CON, 01/14/2023, 18:03. [facility], CR, XR HIP W PEL IF DONE RT 2V, 01/14/2023, 17:55. [facility], CR, XR ANKLE RT MIN 3V, 01/14/2023, 17:55. [facility], CR, XR CHEST 1V, 01/14/2023, 17:44. FINDINGS: Image quality: This examination is somewhat limited by quantum mottle artifact. Bones: No fractures or dislocations. Visualized superior ribs are intact. There is at least moderate disc space narrowing seen at C4-C5 and C5-C6, with mild disc space narrowing seen at C6-C7. Posteriorly directed endplate osteophytes are seen, which are worst at C5-C6. Soft tissues: Prevertebral soft tissues are normal in thickness. No paravertebral hematomas. No apical pneumothoraces. IMPRESSION: Negative for acute cervical spine fracture. Premature cervical spine degenerative changes are seen, which are worst at the C5-C6 level. Dictated by: Alfie Monte M.D. on 01/14/2023 at 17:22 Approved by: Alfie Monte M.D. on 01/14/2023 at 17:25
--- NOTE | 2023-01-14 17:46 | DI.RAD.S_ITS ---
PROCEDURE: XR ANKLE RT MIN 3V INDICATIONS: syncope, R lateral hip pain TECHNIQUE: 3 views of the ankle were acquired. COMPARISON: [facility], CT, CT HEAD/BRAIN WO CON, 01/14/2023, 18:03. [facility], CT, CT CERVICAL SPINE WO CON, 01/14/2023, 18:03. [facility], CR, XR HIP W PEL IF DONE RT 2V, 01/14/2023, 17:55. [facility], CR, XR CHEST 1V, 01/14/2023, 17:44. FINDINGS: Bones: No fractures or dislocations. Ankle mortise is normally aligned. No suspicious bony lesions. The talar dome demonstrates no kanu abnormality. Incidental note is made of an enthesophyte at the Achilles insertion. Soft tissues: No tibiotalar joint effusion. Achilles tendon appears normal. IMPRESSION: No acute bony abnormality or significant effusion. Dictated by: Alfie Monte M.D. on 01/14/2023 at 17:26 Approved by: Alfie Monte M.D. on 01/14/2023 at 17:26
[2023-01-14 17:50] LABS: Add Manual Diff / Slide Review NO; Basophils Absolute Auto 100 /uL (0-100); Eosinophils Absolute Auto 0 /uL (0-450); Eosinophils Percent Auto 0.8 % (2-4); Hematocrit 41.1 % (36-46); Hemoglobin 14.1 g/dL (12.0-16.0); Lymphocytes Absolute Auto 1900 /uL (1100-4500); Lymphocytes Percent Auto 47.1 % (25-40); Mean Corpuscular HGB Conc 34.4 % (30-36); Mean Corpuscular Hemoglobin 33.5 PG (26-34); Mean Corpuscular Volume 97.6 fL (80-100); Monocytes Absolute Auto 700 /uL (0-900); Monocytes Percent Auto 16.4 % (3-14); Neutrophils Absolute Auto 1400 /uL (1500-7000); Neutrophils Percent Auto 33.7 % (50-75); Platelet Count 122 X10^3/uL (150-400); Red Blood Cell Count 4.21 X10^6/uL (4.0-5.2); Red Cell Distribution Width 12.4 % (11.6-14.8); White Blood Cell Count 4.1 X10^3/uL (4.5-11.0)
--- NOTE | 2023-01-14 17:51 | PC.NURSE ---
Pt has a history of Cerebral arteriovenous malformations, 3x CVA's with baseline right sided and speech deficits. GCS of 15, pt's spouse at bedside. Spouse states he was outside doing yard work and came in the house to find patient laying face down in the shower, unresponsive. 9-1-1 was called and pt's spouse initiated compressions. Pt does not recall getting into the shower, however she is now able to tell us her history and states her current deficit and speech is normal for her. Pt does state she had a few margaritas this afternoon.
[2023-01-14 17:54] LABS: Alanine Aminotransferase 87 IU/L (<35); Albumin 4.2 g/dL (3.5-5.0); Albumin Globulin Ratio 1.1 (1.0-2.8); Alkaline Phosphatase 107 U/L (38-126); Aspartate Aminotransferase 253 IU/L (14-36); BUN Creatinine Ratio 8.6 (6-22); Bilirubin Total 1.9 mg/dL (0.2-1.3); Blood Urea Nitrogen 6 mg/dL (7-17); Calcium 8.9 mg/dL (8.4-10.2); Carbon Dioxide 30 mmol/L (22-32); Chloride 98 mmol/L (98-107); Estimated Glomerular Filt Rate > 60 mL/min (>60); Globulin 3.7 g/dL (1.7-4.1); Glucose 85 mg/dL (70-100); HEMOLYSIS < 15 (0-50); Potassium 3.2 mmol/L (3.4-5.1); Sodium 140 mmol/L (137-145); Total Protein 7.9 g/dL (6.3-8.2)
[2023-01-14 17:55] LABS: INR 1.1 (0.9-1.3); Prothrombin Time 12.7 SECONDS (9.4-12.5)
[2023-01-14 18:01] LABS: Ethanol (ETOH) 353 mg/dL
[2023-01-14] MEDS: THIAMINE 100 MG in SODIUM CHLORIDE 0.9% 100 ML 404 MG IV (18:07)
[2023-01-14] MEDS: FOLIC ACID 1 MG TABLET PO (18:07)
[2023-01-14 18:24] LABS: Troponin I < 0.012 ng/mL (0.01-0.034)
== END 2023-01-14 19:40 | disposition home or self-care (01) ==
PROVIDERS: Emergency Medicine; Emergency Provider Emergency Medicine
DX: F10.129 Alcohol abuse with intoxication, unspecified (principal); Y90.8 Blood alcohol level of 240 mg/100 ml or more
CPT/HCPCS: 70450; 71045; 72125; 73502; 73610; 80053; 80320; 84484; 85025; 85610; 93005; 99284

== ENCOUNTER 2023-02-12 06:47 | Inpatient (IN) | payer MEDICAID, SELFPAY ==
[2023-02-12] VITALS (49 sets, daily range): BP systolic 85–166; BP diastolic 53–97; PULSE 61–209; RESP 13–45; TEMP 36.3–37; O2SAT 96–100; BMI 21.0
--- NOTE | 2023-02-12 06:58 | DI.RAD.S_ITS ---
PROCEDURE: XR CHEST 1V INDICATIONS: sob TECHNIQUE: One view of the chest was acquired. COMPARISON: [facility], CT, CT CERVICAL SPINE WO CON, 01/14/2023, 18:03. [facility], CR, XR CHEST 1V, 01/14/2023, 17:44. FINDINGS: Surgical changes and devices: None. Lungs and pleura: Lungs are clear. No pleural effusions or pneumothorax. Mediastinum: Mediastinal contours appear normal. Heart size is normal. Bones and chest wall: No suspicious bony lesions. Overlying soft tissues appear unremarkable. IMPRESSION: No acute cardiopulmonary abnormality is seen. Dictated by: Matias Eid M.D. on 02/12/2023 at 8:07 Approved by: Matias Eid M.D. on 02/12/2023 at 8:08
--- NOTE | 2023-02-12 07:08 | ED_ITS ---
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 She had a syncopal episode yesterday when she stood up to go to the bathroom fell down hit the back of her head and has occipital pain C1 and C2 pain and significant bruising over the right side of her body ribs and flank. She is moderately tender with no respiratory abnormalities. She states that she does not believe that she is in alcohol withdrawal. Does not describe fevers, cough, chills. She denies any black or bloody emesis and no black or bloody stool. She has epigastric tenderness to palpation. She denies prior GI bleeding. Related Data Previous Rx's Medication Instructions Recorded ondansetron 4 mg disintegrating 4 mg PO Q8H PRN nausea and 12/28/22 tablet vomiting #10 tabs Allergies Allergy/AdvReac Type Severity Reaction Status Date / Time codeine Allergy Verified 12/28/22 07:18 morphine Allergy Verified 12/28/22 07:18 Penicillins Allergy Verified 12/28/22 07:18 Review of Systems Review of Systems Narrative: Pertinent positive and negative findings as per HPI Patient History Medical History History of arteriovenous malformation (AVM) Alcohol use disorder Farrell disease Social History household members: spouse Smoking Status: Current every day smoker alcohol intake: current Smoking Status: Current every day smoker alcohol intake frequency: 3 or more drinks per day Substance Use Type: marijuana and crack/cocaine Exam Initial Vital Signs Initial Vital Signs: Vital Signs Pulse Rate 125 H 02/12/23 06:52 Blood Pressure 134/87 02/12/23 06:52 Pulse Oximetry 99 02/12/23 06:52 General: Fatigued, quite jaundiced, stutter at baseline, very dry mucous membranes deep circles under her eyes no facial trauma appreciated HEENT: Dry mucous membranes, icteric sclera with reactive pupils, no obvious abrasions contusions lacerations to the head Neck: Tender midline C1-C2 Respiratory: Lungs are clear to auscultation, no wheezing no rales no rhonchi. Full and symmetrical air movement Chest: Tenderness over the entire right side of her chest without obvious bony step-off and no subcutaneous air Cardiac: Tachycardic but regular, no murmurs Abdomen: Soft, tender in the epigastrium and upper quadrants without rebound or guarding. Moderate bruising over the flank right side Skin: Jaundiced, poor skin turgor, bruises in various stages of healing over her legs and lower abdomen, significant contusion along the right posterior chest and flank Neurologic: Grossly neurologically intact with no obvious asymmetries or abnormalities aside from her baseline stuttering Extremities: Bruises as mentioned above but no obvious trauma appreciated Psych: Cooperative, appropriate insight and affect Course Orders Ordered: Acetaminophen (Acetaminophen 325 Mg Tablet) 325 mg PO Q6H PRN PRN Reason: Fever/Mild Pain (1-3) Chlordiazepoxide HCl (Chlordiazepoxide 25 Mg Capsule) 50 mg PO Q6HR [facility] Last Admin: 02/13/23 23:44 Dose: 50 mg Documented By: Admin: 02/13/23 17:32 Dose: 50 mg Documented By: Admin: 02/13/23 11:41 Dose: 50 mg Documented By: Admin: 02/13/23 06:10 Dose: 50 mg Documented By: Admin: 02/12/23 23:47 Dose: 50 mg Documented By: Admin: 02/12/23 17:33 Dose: 50 mg Documented By: Admin: 02/12/23 13:15 Dose: 50 mg Documented By: JASMIN Folic Acid (Folic Acid 1 Mg Tablet) 1 mg PO DAILY [facility] Last Admin: 02/13/23 08:40 Dose: 1 mg Documented By: Admin: 02/12/23 13:35 Dose: 1 mg Documented By: JASMIN Hydromorphone HCl (Hydromorphone 0.5 Mg Inj) 0.5 mg IV Q4H PRN PRN Reason: Pain, Moderate (4-6) Last Admin: 02/14/23 00:41 Dose: 0.5 mg Documented By: Admin: 02/13/23 20:59 Dose: 0.5 mg Documented By: Admin: 02/13/23 16:41 Dose: 0.5 mg Documented By: Admin: 02/13/23 08:54 Dose: 0.5 mg Documented By: Admin: 02/13/23 04:06 Dose: 0.5 mg Documented By: Admin: 02/12/23 20:38 Dose: 0.5 mg Documented By: ALEX Sodium Chloride (Normal Saline 0.9%) 1,000 mls @ 150 mls/hr IV CONT [facility] Stop: 02/15/23 11:29 Last Admin: 02/14/23 00:26 Dose: 150 mls/hr Documented By: Infusion: 02/14/23 00:26 Dose: Infused Documented By: Admin: 02/13/23 17:52 Dose: 150 mls/hr Documented By: Infusion: 02/13/23 17:52 Dose: Infused Documented By: Admin: 02/13/23 11:39 Dose: 150 mls/hr Documented By: MARQUIS Lorazepam (Lorazepam 2 Mg/Ml Inj) 0 mg IV CIWAPRN PRN; Protocol PRN Reason: Alcohol Withdrawal Lorazepam (Lorazepam 1 Mg Tablet) 0 mg PO CIWAPRN PRN; Protocol PRN Reason: Alcohol Withdrawal Melatonin (Melatonin 3 Mg Tablet) 6 mg PO BEDTIME PRN PRN Reason: Insomnia Methylprednisolone (Methylprednisolone 125 Mg/2 Ml Vial) 32 mg IV DAILY [facility] Stop: 03/12/23 11:44 Last Admin: 02/13/23 08:40 Dose: 32 mg Documented By: Admin: 02/12/23 13:33 Dose: 32 mg Documented By: JASMIN Metoclopramide HCl (Metoclopramide 10 Mg/2 Ml Inj) 10 mg IV Q6HR PRN PRN Reason: Nausea And Vomiting Multivitamins (Multivitamin 1 Tablet) 1 tab PO DAILY [facility] Last Admin: 02/13/23 08:41 Dose: 1 tab Documented By: Admin: 02/12/23 13:35 Dose: 1 tab Documented By: JASMIN Naloxone HCl (Naloxone 0.4 Mg/Ml Vial) 0.2 mg IV Q2MIN PRN PRN Reason: Opiate Reversal Ondansetron HCl (Ondansetron 4 Mg/2 Ml Inj) 4 mg IV Q4HR PRN PRN Reason: Nausea And Vomiting Last Admin: 02/13/23 23:09 Dose: 4 mg Documented By: Pantoprazole Sodium (Pantoprazole 40 Mg Vial) 40 mg IV BID [facility] Last Admin: 02/13/23 20:32 Dose: 40 mg Documented By: Sodium Chloride (Sodium Chloride 0.9% Flush) 10 ml IV PRN PRN PRN Reason: Flush Sodium Chloride (Sodium Chloride 0.9% Flush) 10 ml IV BID [facility] Last Admin: 02/13/23 20:32 Dose: 10 ml Documented By: Admin: 02/13/23 08:41 Dose: 10 ml Documented By: MARQUIS Thiamine HCl (Thiamine 100 Mg Tablet) 100 mg PO DAILY [facility] Stop: 02/15/23 09:01 Last Admin: 02/13/23 08:41 Dose: 100 mg Documented By: Admin: 02/12/23 13:35 Dose: 100 mg Documented By: JASMIN Discontinued Medications Diazepam (Diazepam 10 Mg/2 Ml Syringe) 0 mg IV CIWAPRN PRN; Protocol PRN Reason: Alcohol Withdrawal Diazepam (Diazepam 5 Mg Tablet) 0 mg PO CIWAPRN PRN; Protocol PRN Reason: Alcohol Withdrawal Hydromorphone HCl (Hydromorphone 0.5 Mg Inj) 0.5 mg IV NOW ONE Stop: 02/12/23 11:26 Last Admin: 02/12/23 11:39 Dose: 0.5 mg Documented By: SHELBI Sodium Chloride (Normal Saline 0.9%) 1,000 mls @ 1,000 mls/hr IV BOLUS ONE Stop: 02/12/23 07:55 Last Infusion: 02/12/23 08:07 Dose: Infused Documented By: Admin: 02/12/23 07:21 Dose: 1,000 mls/hr Documented By: KIRA Thiamine HCl 100 mg/ Sodium (Chloride) 101 mls @ 404 mls/hr IV NOW ONE Stop: 02/12/23 07:32 Last Infusion: 02/12/23 09:10 Dose: Infused Documented By: Infusion: 02/12/23 08:36 Dose: 404 mls/hr Documented By: Infusion: 02/12/23 08:06 Dose: 0 mls/hr Documented By: Admin: 02/12/23 08:06 Dose: 404 mls/hr Documented By: ILANA Sodium Chloride (Normal Saline 0.9%) 1,000 mls @ 1,000 mls/hr IV BOLUS ONE Stop: 02/12/23 10:35 Last Infusion: 02/12/23 11:15 Dose: Infused Documented By: [facility] Admin: 02/12/23 09:55 Dose: 1,000 mls/hr Documented By: [facility] POTASSIUM CHLORIDE IN WATER (Potassium Cl 10 Meq/100 Ml Ashley) 10 meq in 100 mls @ 100 mls/hr IV Q1H [facility] Stop: 02/12/23 13:44 Last Infusion: 02/12/23 19:30 Dose: Infused Documented By: [facility] Admin: 02/12/23 13:11 Dose: 100 mls/hr Documented By: [facility] Infusion: 02/12/23 13:11 Dose: Infused Documented By: [facility] Infusion: 02/12/23 12:51 Dose: 100 mls/hr Documented By: [facility] Admin: 02/12/23 12:21 Dose: 100 mls/hr Documented By: [facility] Infusion: 02/12/23 12:20 Dose: Infused Documented By: [facility] Admin: 02/12/23 11:12 Dose: 100 mls/hr Documented By: [facility] Infusion: 02/12/23 11:11 Dose: Infused Documented By: [facility] Admin: 02/12/23 09:55 Dose: 100 mls/hr Documented By: [facility] Sodium Chloride (Normal Saline 0.9%) 1,000 mls @ 150 mls/hr IV CONT [facility] Last Infusion: 02/12/23 16:06 Dose: 0 mls/hr Documented By: Infusion: 02/12/23 12:57 Dose: 150 mls/hr Documented By: [facility] Admin: 02/12/23 11:15 Dose: 150 mls/hr Documented By: [facility] Sodium Chloride (Normal Saline 0.9%) 1,000 mls @ 100 mls/hr IV CONT [facility] Stop: 02/12/23 23:29 Last Infusion: 02/12/23 23:55 Dose: Infused Documented By: [facility] Admin: 02/12/23 13:35 Dose: 100 mls/hr Documented By: [facility] dexmedeTOMIDine in 0.9 % NaCL (Precedex) 400 mcg in 100 mls @ 2.608 mls/hr IV TITRATE [facility]; Protocol Last Titration: 02/13/23 11:39 Dose: 0 mcg/kg/hr, 0 mls/hr Documented By: Titration: 02/13/23 09:02 Dose: 0.1 mcg/kg/hr, 1.304 mls/hr Documented By: Titration: 02/13/23 09:01 Dose: 0.15 mcg/kg/hr, 1.956 mls/hr Documented By: Titration: 02/13/23 06:55 Dose: 0.25 mcg/kg/hr, 3.26 mls/hr Documented By: Titration: 02/13/23 04:42 Dose: 0.2 mcg/kg/hr, 2.608 mls/hr Documented By: Titration: 02/12/23 21:07 Dose: 0.15 mcg/kg/hr, 1.956 mls/hr Documented By: Titration: 02/12/23 20:42 Dose: 0.2 mcg/kg/hr, 2.608 mls/hr Documented By: Titration: 02/12/23 20:05 Dose: 0.15 mcg/kg/hr, 1.956 mls/hr Documented By: Admin: 02/12/23 13:11 Dose: 0.2 mcg/kg/hr, 2.608 mls/hr Documented By: JASMIN Magnesium Sulfate (Magnesium Sulfate) 2 gm in 50 mls @ 25 mls/hr IV NOW ONE Stop: 02/12/23 14:25 Last Infusion: 02/12/23 19:28 Dose: Infused Documented By: ALEX Co-signed By: Admin: 02/12/23 13:15 Dose: 25 mls/hr Documented By: JASMIN Co-signed By: MARQUIS Lorazepam (Lorazepam 2 Mg/Ml Inj) 0.5 mg IV NOW ONE Stop: 02/12/23 07:41 Last Admin: 02/12/23 08:00 Dose: 0.5 mg Documented By: SPF Ondansetron HCl (Ondansetron 4 Mg/2 Ml Inj) 4 mg IV NOW ONE Stop: 02/12/23 07:32 Last Admin: 02/12/23 07:49 Dose: 4 mg Documented By: SPF Pantoprazole Sodium (Pantoprazole 40 Mg Vial) 40 mg IV DAILY [facility] Last Admin: 02/13/23 08:41 Dose: 40 mg Documented By: CW Phenobarbital (Phenobarbital 65 Mg/Ml Vial) 260 mg IV NOW ONE Stop: 02/12/23 11:54 Last Admin: 02/12/23 12:21 Dose: 260 mg Documented By: ILANA Potassium Chloride (Potassium Chloride 20 Meq Tab) 40 meq PO Q6H [facility] Stop: 02/13/23 15:31 Last Admin: 02/13/23 15:31 Dose: 40 meq Documented By: Admin: 02/13/23 09:48 Dose: 40 meq Documented By: MARQUIS Vital Signs Vital signs: Vital Signs - 8 hr 02/12/23 06:52 02/12/23 06:52 02/12/23 06:58 Temperature 97.3 F L Pulse Rate 125 H 133 H Respiratory Rate 23 Blood Pressure 134/87 134/87 Pulse Oximetry 99 99 Oxygen Delivery Method Room Air 02/12/23 07:00 02/12/23 07:01 02/12/23 07:01 Temperature Pulse Rate 111 H 111 H Respiratory Rate 21 24 Blood Pressure 137/90 Pulse Oximetry 99 99 Oxygen Delivery Method 02/12/23 07:30 02/12/23 07:30 02/12/23 08:20 Temperature Pulse Rate 133 H 96 H Respiratory Rate 34 H Blood Pressure 128/77 Pulse Oximetry 99 98 Oxygen Delivery Method 02/12/23 08:21 02/12/23 08:21 02/12/23 08:30 Temperature Pulse Rate 94 H 90 Respiratory Rate 22 20 Blood Pressure 166/97 H Pulse Oximetry 100 99 Oxygen Delivery Method Room Air Room Air 02/12/23 08:30 02/12/23 09:00 02/12/23 09:00 Temperature Pulse Rate 114 H Respiratory Rate 39 H Blood Pressure 139/89 118/71 Pulse Oximetry 99 Oxygen Delivery Method 02/12/23 09:15 02/12/23 09:15 02/12/23 09:30 Temperature Pulse Rate 88 Respiratory Rate Blood Pressure 127/84 119/84 Pulse Oximetry 98 Oxygen Delivery Method 02/12/23 09:30 02/12/23 09:45 02/12/23 09:45 Temperature Pulse Rate 96 H 100 H Respiratory Rate Blood Pressure 122/87 Pulse Oximetry Oxygen Delivery Method 02/12/23 10:00 02/12/23 10:00 02/12/23 10:15 Temperature Pulse Rate 90 102 H Respiratory Rate Blood Pressure 130/86 Pulse Oximetry 98 Oxygen Delivery Method 02/12/23 10:15 02/12/23 10:30 02/12/23 10:30 Temperature Pulse Rate 90 Respiratory Rate Blood Pressure 117/80 123/81 Pulse Oximetry 100 Oxygen Delivery Method 02/12/23 11:00 02/12/23 11:10 02/12/23 11:10 Temperature Pulse Rate 97 H 103 H Respiratory Rate 25 H 22 Blood Pressure 122/82 Pulse Oximetry 99 100 Oxygen Delivery Method 02/12/23 11:15 02/12/23 11:15 Temperature Pulse Rate 99 H Respiratory Rate 29 H Blood Pressure 125/79 Pulse Oximetry 99 Oxygen Delivery Method Medical Decision Making Lab Data 02/13/23 16:25 02/13/23 16:25 Labs: Lab Results 02/12/23 02/12/23 02/12/23 Range/Units 07:04 07:32 10:05 WBC 7.3 (4.5-11.0) X10^3/uL RBC 3.90 L (4.0-5.2) X10^6/uL Hgb 13.5 (12.0-16.0) g/dL Hct 38.0 (36-46) % MCV 97.5 (80-100) fL MCH 34.5 H (26-34) PG MCHC 35.4 (30-36) % RDW 14.9 H (11.6-14.8) % Plt Count 46 L (150-400) X10^3/uL Neut % (Auto) 79.2 H (50-75) % Lymph % (Auto) 10.2 L (25-40) % [place] % (Auto) 9.9 (3-14) % Eos % (Auto) 0.1 L (2-4) % Baso % (Auto) 0.6 (0-2) % Neut # (Auto) 5800 (0014-0786) /uL Lymph # (Auto) 800 L (8176-3079) /uL [place] # (Auto) 700 (0-900) /uL Eos # (Auto) 0 (0-450) /uL Baso # (Auto) 0 (0-100) /uL Platelet Estimate RBC Morphology Normal morphology PT 16.7 H (9.4-12.5) SECONDS INR 1.5 H (0.9-1.3) APTT 25 L (25.1-36.5) SECONDS Sodium 129 L (137-145) mmol/L Potassium 3.1 L (3.4-5.1) mmol/L Chloride 84 L (98-107) mmol/L Carbon Dioxide 26 (22-32) mmol/L BUN 23 H (7-17) mg/dL Creatinine 1.41 H (0.52-1.04) mg/dL Estimated GFR 46 L (>60) mL/min BUN/Creatinine Ratio 16.3 (6-22) Glucose 105 H (70-100) mg/dL Lactate 5.2 H* (0.7-2.1) mmol/L Calcium 9.0 (8.4-10.2) mg/dL Magnesium 1.4 L (1.6-2.3) mg/dL Total Bilirubin 15.9 H (0.2-1.3) mg/dL Conjugated Bilirubin 9.1 H (0.0-0.3) md/dL Unconjugated Bilirubin 2.8 H (0.0-1.1) mg/dL AST 475 H (14-36) IU/L ALT 149 H (<35) IU/L Alkaline Phosphatase 163 H (38-126) U/L Total Creatine Kinase 101 (30-135) U/L Troponin I 0.014 (0.01-0.034) ng/mL Total Protein 7.6 (6.3-8.2) g/dL Albumin 4.0 (3.5-5.0) g/dL Globulin 3.6 (1.7-4.1) g/dL Albumin/Globulin Ratio 1.1 (1.0-2.8) Triglycerides 179 H (35-150) mg/dL Cholesterol 200 H (140-199) mg/dL LDL Cholesterol, Calc 139 H (<100) mg/dL HDL Cholesterol 25 L (40-60) mg/dL TSH 1.46 (0.47-4.68) uIU/mL Serum , Qual Negative (Negative) Urine RBC (0-5/HPF) Urine WBC (0-5/HPF) Ur Squamous Epith Cells (0-5/HPF) Urine Bacteria (None) Ur Culture Indicated? Acetaminophen < 10 (10-30) ug/mL Ethyl Alcohol 77 H ( - 10) mg/dL Hepatitis A IgM Ab Negative (Negative) Hep Bs Antigen Negative (Negative) Hep B Core IgM Ab Negative (Negative) Hepatitis C Antibody Non reactive (Non Reactive) Hep C Ab Signal/Cutoff Comment (.) Blood Type A Positive Antibody Screen Negative 02/12/23 Range/Units 10:40 WBC (4.5-11.0) X10^3/uL RBC (4.0-5.2) X10^6/uL Hgb (12.0-16.0) g/dL Hct (36-46) % MCV (80-100) fL MCH (26-34) PG MCHC (30-36) % RDW (11.6-14.8) % Plt Count (150-400) X10^3/uL Neut % (Auto) (50-75) % Lymph % (Auto) (25-40) % [place] % (Auto) (3-14) % Eos % (Auto) (2-4) % Baso % (Auto) (0-2) % Neut # (Auto) (2202-3533) /uL Lymph # (Auto) (2127-0296) /uL [place] # (Auto) (0-900) /uL Eos # (Auto) (0-450) /uL Baso # (Auto) (0-100) /uL Platelet Estimate RBC Morphology PT (9.4-12.5) SECONDS INR (0.9-1.3) APTT (25.1-36.5) SECONDS Sodium 130 L (137-145) mmol/L Potassium 3.3 L (3.4-5.1) mmol/L Chloride 91 L (98-107) mmol/L Carbon Dioxide 27 (22-32) mmol/L BUN 18 H (7-17) mg/dL Creatinine 1.03 (0.52-1.04) mg/dL Estimated GFR > 60 (>60) mL/min BUN/Creatinine Ratio 17.5 (6-22) Glucose 81 (70-100) mg/dL Lactate (0.7-2.1) mmol/L Calcium 7.8 L (8.4-10.2) mg/dL Magnesium (1.6-2.3) mg/dL Total Bilirubin 13.7 H (0.2-1.3) mg/dL Conjugated Bilirubin (0.0-0.3) md/dL Unconjugated Bilirubin (0.0-1.1) mg/dL AST 387 H (14-36) IU/L ALT 126 H (<35) IU/L Alkaline Phosphatase 124 (38-126) U/L Total Creatine Kinase (30-135) U/L Troponin I (0.01-0.034) ng/mL Total Protein 6.3 (6.3-8.2) g/dL Albumin 3.1 L (3.5-5.0) g/dL Globulin 3.2 (1.7-4.1) g/dL Albumin/Globulin Ratio 1.0 (1.0-2.8) Triglycerides (35-150) mg/dL Cholesterol (140-199) mg/dL LDL Cholesterol, Calc (<100) mg/dL HDL Cholesterol (40-60) mg/dL TSH (0.47-4.68) uIU/mL Serum , Qual (Negative) Urine RBC None seen (0-5/HPF) Urine WBC 1-5/hpf (0-5/HPF) Ur Squamous Epith Cells 1-5 /hpf (0-5/HPF) Urine Bacteria Many (>30) H (None) Ur Culture Indicated? Specimen cultured Acetaminophen (10-30) ug/mL Ethyl Alcohol ( - 10) mg/dL Hepatitis A IgM Ab (Negative) Hep Bs Antigen (Negative) Hep B Core IgM Ab (Negative) Hepatitis C Antibody (Non Reactive) Hep C Ab Signal/Cutoff (.) Blood Type Antibody Screen Urine Dip Bedside Urine Glucose Negative Bedside Urine Bilirubin + 1 Bedside Urine Ketone +/- 5 Urine Specific [place] 1.010 Bedside Urine Occult Blood + Bedside Urine pH 6.0 Bedside Urine Protein + 30 Bedside Urine Urobilinogen +/- 1mg Bedside Urine Nitrite + Positive Bedside Urine Leukocytes + 70 Esterase Point of care testing: Urine Dip Bedside Urine Glucose Negative Bedside Urine Bilirubin + 1 Bedside Urine Ketone +/- 5 Urine Specific [place] 1.010 Bedside Urine Occult Blood + Bedside Urine pH 6.0 Bedside Urine Protein + 30 Bedside Urine Urobilinogen +/- 1mg Bedside Urine Nitrite + Positive Bedside Urine Leukocytes + [address] chest abdomen pelvis: Radiologist's Impression: FINDINGS: Image quality: Excellent. CHEST: Lower Neck: No enlarged lymph nodes. Thyroid: Visualized portion is unremarkable. Axillae: No enlarged lymph nodes. Chest Wall: Bilateral breast implants.. Bones: No acute fractures. Lungs and Pleura: Right fissure solid pulmonary nodule versus lymph node measuring 2 mm (2/36). Trace right pleural effusion. No left-sided pleural effusion. No pneumothorax. Dependent atelectasis. Heart: Heart size is normal. No pericardial effusion. No coronary vessel calcifications. Thoracic Vessels: The aorta and pulmonary arteries demonstrate normal size. No acute aortic pathology. No filling defect in the central pulmonary vasculature. Retroesophageal course of the right subclavian artery, benign anatomic variant. Mediastinum and [place]: No enlarged lymph nodes. Esophagus: No wall thickening. No hiatal hernia. ABDOMEN: Liver: No solid mass. Diffuse hypoattenuation of the liver. Gallbladder: No radiopaque gallstones or wall thickening. Biliary ducts: No biliary dilation. Pancreas: No ductal dilation. Spleen: Size is within normal limits. Adrenal Glands: No adrenal nodules. Kidneys and Ureters: No hydronephrosis. No solid mass. No complex renal cystic lesion which requires follow up. Stomach and Bowel: Normal colonic caliber, without significant wall thickening. Peritoneum: Small volume pelvic and abdominal ascites. Ventral Wall: No hernia. Abdominal Nodes: No retroperitoneal or mesenteric adenopathy by size criteria. Vessels: Aorta and inferior vena cava are normal in size. Mesenteric vessels are patent. Bilateral renal arteries are patent. Patent hepatic, portal, splenic and bilateral renal veins. PELVIS: Pelvic Organs: Unremarkable. Bladder: Unremarkable. Pelvic Nodes: No enlarged lymph nodes. Miscellaneous: No inguinal hernias are seen. Bones: No acute fractures. No aggressive appearing lytic or blastic osseous lesions. IMPRESSION: 1. No traumatic injury in the chest, abdomen and pelvis. 2. Diffuse hypoattenuation of the liver suggestive of steatosis. Correlate with LFTs. 3. New trace right pleural effusion and small volume abdominal pelvic ascites. Findings may be secondary to volume overload versus sequela of liver disease. 4. Right fissure solid pulmonary nodule versus lymph node measuring 2 mm. Fleischner guidelines: If patient is low risk, no additional follow-up needed. If patient is high risk, consider repeat CT chest in 12 months. Dictated by: Tommy Alvarez M.D. on 02/12/2023 at 8:50 MDM Narrative Medical decision making narrative: CC: Vomiting with syncope, jaundice Complicating co-morbidities: Gilbert's disease, fall 24 hours ago, persistent vomiting, jaundice, alcohol use disorder Data collected from: patient, Social determinants of health that may influence the patients condition: Alcohol use disorder Medical records reviewed: Prior ER records involving alcohol use disorder are reviewed Differential considered: Differential is wide and includes medical issues such as GI bleeding, liver failure, acute renal failure, electrolyte abnormalities and significant trauma with intracranial hemorrhage cervical spine hemorrhage thoracic and abdominal trauma Exam documented above, pertinent findings include: Significant jaundice, obviously dehydrated, tachycardic significant bruising over the right side that appears fall yesterday with reports of hitting her head unknown loss of consciousness and C1-2 midline neck pain. Lab Test results independently reviewed as above. Pertinent findings: CBC shows a normal white count, normal H&H at 13.5 and 38.0, platelets are low at 46 Coagulation studies show an elevated PT at 16.7 equivalent to an INR of 1.5, Sodium is low at 129, potassium low at 3.1 creatinine elevated at 1.4 last noted creatinine was 0.7. GFR decreased to 46. Significant LFT abnormalities including bilirubin of 15.9, AST 475 ALT 149 alk-phos 163 all higher than previously. Serum qualitative is negative Troponin is undetectable Independently reviewed EKG: Sinus rhythm at a rate of 86. Normal intervals, normal axis. No acute ischemic changes Imaging studies independently reviewed: Chest x-ray shows no acute disease CT scan of the chest abdomen pelvis is reviewed, radiology interpretation indicates shows no traumatic injury of the chest abdomen or pelvis. Liver has diffuse static hypoattenuation. Small volume pelvic ascites and new trace right pleural effusion. Incidental pulmonary nodule noted. CT scan of the cervical spine shows no obvious C1 and C2 fractures. Degenerative changes are appreciated CT scan of the head shows no fractures or intracranial hemorrhage US preliminary read indicate sludge in his gallbladder, no stones, no pericholecystic fluid, no wall thickening. No dilated ducts but note is made of fatty liver Consultations: Discussed with hospitalist at 10:20, requests repeat CMP to make sure studies are trending down prior to admission at [facility] Treatments: Fluids, potassium, Zofran. Re-evaluations: Repeat chemistries indicate bilirubin AST and ALT are trending down and alk-phos is actually back to normal. Will talk with the hospitalist and anticipate hospitalization until she is feeling significantly improved and able to eat and drink. Discussion: 47-year-old woman with likely alcoholic hepatitis, thrombocytopenia and persistent nausea vomiting with acute kidney injury and hypokalemia as well as hyponatremia. She will be admitted to the hospital service for treatment of the alcoholic hepatitis as well as increasing alcohol withdrawal symptoms. She is aware of admission and agreeable to plan. Care is reviewed with Dr. Cárdenas who will be the admitting hospitalist. Discharge Plan Departure Patient Disposition: Admitted As Inpatient Clinical Impression: Acute hyponatremia, Acute hypokalemia, Acute kidney injury, Elevated liver enzymes, Incidental lung nodule Admit Date/Time: 02/12/23 11:26 Admit Provider: Sherwin Cárdenas
[2023-02-12] MEDS: SODIUM CHLORIDE 0.9% 1,000 ML 1000 ML IV ×2 (07:21→09:55)
[2023-02-12 07:22] LABS: Basophils Absolute Auto 0 /uL (0-100); Basophils Percent Auto 0.6 % (0-2); Eosinophils Absolute Auto 0 /uL (0-450); Eosinophils Percent Auto 0.1 % (2-4); Hemoglobin 13.5 g/dL (12.0-16.0); Lymphocytes Absolute Auto 800 /uL (1100-4500); Lymphocytes Percent Auto 10.2 % (25-40); Mean Corpuscular HGB Conc 35.4 % (30-36); Mean Corpuscular Hemoglobin 34.5 PG (26-34); Mean Corpuscular Volume 97.5 fL (80-100); Monocytes Absolute Auto 700 /uL (0-900); Monocytes Percent Auto 9.9 % (3-14); Neutrophils Absolute Auto 5800 /uL (1500-7000); Neutrophils Percent Auto 79.2 % (50-75); Platelet Count 46 X10^3/uL (150-400); Red Cell Distribution Width 14.9 % (11.6-14.8); White Blood Cell Count 7.3 X10^3/uL (4.5-11.0)
[2023-02-12 07:23] LABS: Add Manual Diff / Slide Review SLIDE REVIEW; INR 1.5 (0.9-1.3); Prothrombin Time 16.7 SECONDS (9.4-12.5)
[2023-02-12 07:26] LABS: PTT Partial Thromboplastin Tim 25 SECONDS (25.1-36.5)
[2023-02-12 07:27] LABS: Pregnancy Test Serum,Qual Negative (Negative)
[2023-02-12 07:29] LABS: Acetaminophen < 10 ug/mL (10-30); Alanine Aminotransferase 149 IU/L (<35); Albumin Globulin Ratio 1.1 (1.0-2.8); Alkaline Phosphatase 163 U/L (38-126); Aspartate Aminotransferase 475 IU/L (14-36); BUN Creatinine Ratio 16.3 (6-22); Bilirubin Conjugated 9.1 md/dL (0.0-0.3); Bilirubin Total 15.9 mg/dL (0.2-1.3); Bilirubin Unconjugated 2.8 mg/dL (0.0-1.1); Blood Urea Nitrogen 23 mg/dL (7-17); Carbon Dioxide 26 mmol/L (22-32); Chloride 84 mmol/L (98-107); Creatine Kinase 101 U/L (30-135); Estimated Glomerular Filt Rate 46 mL/min (>60); Ethanol (ETOH) 77 mg/dL; Globulin 3.6 g/dL (1.7-4.1); Glucose 105 mg/dL (70-100); HEMOLYSIS < 15 (0-50); Potassium 3.1 mmol/L (3.4-5.1); Sodium 129 mmol/L (137-145); Total Protein 7.6 g/dL (6.3-8.2)
--- NOTE | 2023-02-12 07:31 | DI.CT.S_ITS ---
PROCEDURE: CT CHEST ABD PEL W CON INDICATIONS: Syncopal with fall, bruising over right posterior chest and TECHNIQUE: After the administration of intravenous contrast, 5 mm thick sections acquired from the lung apices to the symphysis. 5 mm coronal and sagittal reformats were performed, with additional 7 mm MIP reformats through the lungs. For radiation dose reduction, the following was used: automated exposure control, adjustment of mA and/or kV according to patient size. COMPARISON: [facility], CT, CT ANGIO ABD/PEL GI BLEED, 12/28/2022, 7:43. FINDINGS: Image quality: Excellent. CHEST: Lower Neck: No enlarged lymph nodes. Thyroid: Visualized portion is unremarkable. Axillae: No enlarged lymph nodes. Chest Wall: Bilateral breast implants.. Bones: No acute fractures. Lungs and Pleura: Right fissure solid pulmonary nodule versus lymph node measuring 2 mm (2/36). Trace right pleural effusion. No left-sided pleural effusion. No pneumothorax. Dependent atelectasis. Heart: Heart size is normal. No pericardial effusion. No coronary vessel calcifications. Thoracic Vessels: The aorta and pulmonary arteries demonstrate normal size. No acute aortic pathology. No filling defect in the central pulmonary vasculature. Retroesophageal course of the right subclavian artery, benign anatomic variant. Mediastinum and Sandrine: No enlarged lymph nodes. Esophagus: No wall thickening. No hiatal hernia. ABDOMEN: Liver: No solid mass. Diffuse hypoattenuation of the liver. Gallbladder: No radiopaque gallstones or wall thickening. Biliary ducts: No biliary dilation. Pancreas: No ductal dilation. Spleen: Size is within normal limits. Adrenal Glands: No adrenal nodules. Kidneys and Ureters: No hydronephrosis. No solid mass. No complex renal cystic lesion which requires follow up. Stomach and Bowel: Normal colonic caliber, without significant wall thickening. Peritoneum: Small volume pelvic and abdominal ascites. Ventral Wall: No hernia. Abdominal Nodes: No retroperitoneal or mesenteric adenopathy by size criteria. Vessels: Aorta and inferior vena cava are normal in size. Mesenteric vessels are patent. Bilateral renal arteries are patent. Patent hepatic, portal, splenic and bilateral renal veins. PELVIS: Pelvic Organs: Unremarkable. Bladder: Unremarkable. Pelvic Nodes: No enlarged lymph nodes. Miscellaneous: No inguinal hernias are seen. Bones: No acute fractures. No aggressive appearing lytic or blastic osseous lesions. IMPRESSION: 1. No traumatic injury in the chest, abdomen and pelvis. 2. Diffuse hypoattenuation of the liver suggestive of steatosis. Correlate with LFTs. 3. New trace right pleural effusion and small volume abdominal pelvic ascites. Findings may be secondary to volume overload versus sequela of liver disease. 4. Right fissure solid pulmonary nodule versus lymph node measuring 2 mm. Fleischner guidelines: If patient is low risk, no additional follow-up needed. If patient is high risk, consider repeat CT chest in 12 months. Dictated by: Tommy Alvarez M.D. on 02/12/2023 at 8:50 Approved by: Tommy Alvarez M.D. on 02/12/2023 at 8:59
--- NOTE | 2023-02-12 07:34 | DI.CT.S_ITS ---
PROCEDURE: CT CERVICAL SPINE WO CON INDICATIONS: fall, pain C1, C2 midline TECHNIQUE: Noncontrast 3 mm thick sections acquired from the skull base to the T4 level. Sagittal and coronal reformats were then constructed. For radiation dose reduction, the following was used: automated exposure control, adjustment of mA and/or kV according to patient size. COMPARISON: [facility], CT, CT CERVICAL SPINE WO CON, 01/14/2023, 18:03. FINDINGS: Image quality: Excellent. Bones: No fractures or dislocations. Moderate degenerative changes with osteophytosis, disc height loss and facet arthropathy, notably at C4-C5, C5-C6 and C6-C7, similar to January 14, 2023. Visualized superior ribs are intact. Soft tissues: Prevertebral soft tissues are normal in thickness. No paravertebral hematomas. No apical pneumothoraces. Thyroid is unremarkable. IMPRESSION: 1. No displaced fracture or traumatic subluxation. 2. Moderate degenerative changes at C4-C5, C5-C6 and C6-C7. Dictated by: Tommy Alvarez M.D. on 02/12/2023 at 8:29 Approved by: Tommy Alvarez M.D. on 02/12/2023 at 8:32
--- NOTE | 2023-02-12 07:34 | DI.CT.S_ITS ---
PROCEDURE: CT HEAD/BRAIN WO CON INDICATIONS: fall, unknown loss of consciouness,coagulaopathy TECHNIQUE: Noncontrast 4.5 mm thick angled axial sections acquired from the foramen magnum to the vertex, with coronal and sagittal reformats. For radiation dose reduction, the following was used: automated exposure control, adjustment of mA and/or kV according to patient size. COMPARISON: [facility], CT, CT HEAD/BRAIN WO CON, 01/14/2023, 18:03. FINDINGS: Image quality: Diagnostic. CSF spaces: Basal cisterns are patent. No extra-axial fluid collections. Ventricles are normal in size and shape. Brain: No midline shift. No intracranial masses or hemorrhage. Gallegos-white matter interface is normal. Skull and face: Calvarium and visualized facial bones are intact, without suspicious lesions. Sinuses: Visualized sinuses and mastoids are clear. IMPRESSION: No acute intracranial pathology. Dictated by: Matias Eid M.D. on 02/12/2023 at 8:40 Approved by: Matias Eid M.D. on 02/12/2023 at 8:42
[2023-02-12 07:40] LABS: Troponin I 0.014 ng/mL (0.01-0.034)
[2023-02-12] MEDS: ONDANSETRON 4 MG/2 ML INJ IV (07:49)
[2023-02-12] MEDS: LORazepam 2 MG/ML INJ 0.5 MG IV (08:00)
[2023-02-12 08:05] LABS: RBC Morphology Normal Morphology
[2023-02-12] MEDS: THIAMINE 100 MG in SODIUM CHLORIDE 0.9% 100 ML 404 MG IV (08:06)
--- NOTE | 2023-02-12 09:32 | DI.US.S_ITS ---
PROCEDURE: US ABDOMEN LIMITED INDICATIONS: RUQ PAIN; JAUNDICE TECHNIQUE: Real-time scanning was performed of the abdominal and retroperitoneal organs, with image documentation. COMPARISON: [facility], CT, CT CHEST ABD PEL W CON, 02/12/2023, 7:50. FINDINGS: Liver: Liver is normal in size and diffusely echogenic in echotexture. Gallbladder: Sludge. No wall thickening. No pericholecystic edema. Negative sonographic Toribio's sign. Phrygian cap, benign variant. No free fluid adjacent to the gallbladder. Biliary ducts: Intrahepatic bile ducts are non-dilated. Extrahepatic bile duct caliber measures 4 mm. Normal is 6-7 mm or less in diameter, or 10 mm or less post-cholecystectomy. Pancreas: Not well seen secondary to bowel gas. Right Kidney: Normal in size and echotexture, without hydronephrosis. No solid masses. IVC: Intrahepatic inferior vena cava is patent where visualized. Miscellaneous: IMPRESSION: 1. No sonographic evidence of acute cholecystitis. No biliary ductal dilatation. 2. Liver parenchyma is diffusely echogenic suggestive of parenchymal disease such as steatosis. Correlate with LFTs. Dictated by: Tommy Alvarez M.D. on 02/12/2023 at 10:13 Approved by: Tommy Alvarez M.D. on 02/12/2023 at 10:17
[2023-02-12] MEDS: POTASSIUM CHLORIDE IN WATER 10 MEQ/100 ML PIGGYBACK 100 MEQ IV ×4 (09:55→13:11)
--- NOTE | 2023-02-12 10:42 | PC.NURSE ---
Pt was assisted up to BSC stand by assist for a urine specimen. Pt C/O dizziness and lightheaded while up at bedside. Pt back in bed, call light in reach. Pt requesting PO fluids. Provider notified.
[2023-02-12 11:00] LABS: Bacteria Urine Many (>30); Culture Indicated Urine Specimen Cultured; RBC Urine None Seen (0-5/HPF); Squamous Epithelial Cell Urine 1-5 /HPF (0-5/HPF); WBC Urine 1-5/HPF (0-5/HPF)
[2023-02-12 11:08] LABS: Alanine Aminotransferase 126 IU/L (<35); Albumin 3.1 g/dL (3.5-5.0); Alkaline Phosphatase 124 U/L (38-126); Aspartate Aminotransferase 387 IU/L (14-36); BUN Creatinine Ratio 17.5 (6-22); Bilirubin Total 13.7 mg/dL (0.2-1.3); Blood Urea Nitrogen 18 mg/dL (7-17); Calcium 7.8 mg/dL (8.4-10.2); Carbon Dioxide 27 mmol/L (22-32); Chloride 91 mmol/L (98-107); Estimated Glomerular Filt Rate > 60 mL/min (>60); Globulin 3.2 g/dL (1.7-4.1); Glucose 81 mg/dL (70-100); HEMOLYSIS < 15 (0-50); Potassium 3.3 mmol/L (3.4-5.1); Sodium 130 mmol/L (137-145); Total Protein 6.3 g/dL (6.3-8.2)
[2023-02-12] MEDS: SODIUM CHLORIDE 0.9% 1,000 ML 150 ML IV (11:15)
[2023-02-12] MEDS: HYDROMORPHONE 0.5 MG INJ IV ×2 (11:39→20:38)
--- NOTE | 2023-02-12 12:02 | PM.HP.1 ---
History of Present Illness History of Present Illness Date Patient Seen: 02/12/23 Time Patient Seen: 12:14 Chief complaint: hard time breathing x 2 days, vomiting Narrative: Yanet Vega is a 47yo F with PMH of AVM causing stroke, alcohol dependence, and Gilbert's disease who presents with abd pain, NV, fall at home and in alcohol withdrawals. Patient states she developed acute NV 2 days ago after not drinking alcohol for 48 hours. She could barely keep down gatorade or water. Hasn't eaten or slept much in 3 days. Yesterday she stood up and her vision went black and she saw meraz stars then passed out and hit her head and back on a counter. She immediately came to and has been in alot of pain in her back since. She also notes diffuse abd pain. She says she only drinks 1 glass of wine or 1 tariq daily, but that she used to drink much more heavily when I was younger. Denies CP, hematemesis, diarrhea, LE swelling, or visual changes. [facility] Medical History History of arteriovenous malformation (AVM) Alcohol use disorder [place] disease Social History Smoking Status: Current every day smoker Meds Home Medications and Allergies Home Medications Medication Instructions Recorded Confirmed Type ondansetron 4 mg disintegrating 4 mg PO Q8H PRN nausea and 12/28/22 Rx tablet vomiting #10 tabs Allergies Allergy/AdvReac Type Severity Reaction Status Date / Time codeine Allergy Verified 12/28/22 07:18 morphine Allergy Verified 12/28/22 07:18 Penicillins Allergy Verified 12/28/22 07:18 Review of Systems Review of Systems Narrative: All other systems reviewed with the patient and are negative unless otherwise stated. Exam Vital Signs (past 8 hours): - 02/12/23 06:52 02/12/23 06:52 02/12/23 06:58 Temperature 97.3 F L Pulse Rate 125 H 133 H Respiratory Rate 23 Blood Pressure 134/87 134/87 Pulse Oximetry 99 99 Oxygen Delivery Method Room Air 02/12/23 07:00 02/12/23 07:01 02/12/23 07:01 Temperature Pulse Rate 111 H 111 H Respiratory Rate 21 24 Blood Pressure 137/90 Pulse Oximetry 99 99 Oxygen Delivery Method 02/12/23 07:30 02/12/23 07:30 02/12/23 08:20 Temperature Pulse Rate 133 H 96 H Respiratory Rate 34 H Blood Pressure 128/77 Pulse Oximetry 99 98 Oxygen Delivery Method 02/12/23 08:21 02/12/23 08:21 02/12/23 08:30 Temperature Pulse Rate 94 H 90 Respiratory Rate 22 20 Blood Pressure 166/97 H Pulse Oximetry 100 99 Oxygen Delivery Method Room Air Room Air 02/12/23 08:30 02/12/23 09:00 02/12/23 09:00 Temperature Pulse Rate 114 H Respiratory Rate 39 H Blood Pressure 139/89 118/71 Pulse Oximetry 99 Oxygen Delivery Method 02/12/23 09:15 02/12/23 09:15 02/12/23 09:30 Temperature Pulse Rate 88 Respiratory Rate Blood Pressure 127/84 119/84 Pulse Oximetry 98 Oxygen Delivery Method 02/12/23 09:30 02/12/23 09:45 02/12/23 09:45 Temperature Pulse Rate 96 H 100 H Respiratory Rate Blood Pressure 122/87 Pulse Oximetry Oxygen Delivery Method 02/12/23 10:00 02/12/23 10:00 02/12/23 10:15 Temperature Pulse Rate 90 102 H Respiratory Rate Blood Pressure 130/86 Pulse Oximetry 98 Oxygen Delivery Method 02/12/23 10:15 02/12/23 10:30 02/12/23 10:30 Temperature Pulse Rate 90 Respiratory Rate Blood Pressure 117/80 123/81 Pulse Oximetry 100 Oxygen Delivery Method 02/12/23 11:00 02/12/23 11:10 02/12/23 11:10 Temperature Pulse Rate 97 H 103 H Respiratory Rate 25 H 22 Blood Pressure 122/82 Pulse Oximetry 99 100 Oxygen Delivery Method 02/12/23 11:15 02/12/23 11:15 02/12/23 11:30 Temperature Pulse Rate 99 H 78 Respiratory Rate 29 H 23 Blood Pressure 125/79 Pulse Oximetry 99 99 Oxygen Delivery Method 02/12/23 11:30 02/12/23 11:45 02/12/23 11:45 Temperature Pulse Rate 99 H Respiratory Rate 30 H Blood Pressure 143/77 H 128/76 Pulse Oximetry 99 Oxygen Delivery Method 02/12/23 12:00 02/12/23 12:00 Temperature Pulse Rate 93 H Respiratory Rate 22 Blood Pressure 125/78 Pulse Oximetry 99 Oxygen Delivery Method Room Air Oxygen Delivery Method Room Air Narrative Exam Narrative: GEN: anxious, tremulous HEENT: dry mucous membranes, PERRL NECK: trachea midline, no JVD CV: tachycardic, no murmurs PULM: clear bilaterally ABD: soft, diffuse abd pain, nondistended, no organomegaly EXT: warm and well perfused with no edema NEURO: awake, alert, oriented, no focal deficits Objective Labs 02/12/23 07:04 02/12/23 10:40 Labs: Laboratory Results - last 24 hr 02/12/23 02/12/23 02/12/23 07:04 07:32 10:40 WBC 7.3 RBC 3.90 L Hgb 13.5 Hct 38.0 MCV 97.5 MCH 34.5 H MCHC 35.4 RDW 14.9 H Plt Count 46 L Neut % (Auto) 79.2 H Lymph % (Auto) 10.2 L [place] % (Auto) 9.9 Eos % (Auto) 0.1 L Baso % (Auto) 0.6 Neut # (Auto) 5800 Lymph # (Auto) 800 L [place] # (Auto) 700 Eos # (Auto) 0 Baso # (Auto) 0 Platelet Estimate RBC Morphology Normal morphology PT 16.7 H INR 1.5 H APTT 25 L Sodium 129 L 130 L Potassium 3.1 L 3.3 L Chloride 84 L 91 L Carbon Dioxide 26 27 BUN 23 H 18 H Creatinine 1.41 H 1.03 Estimated GFR 46 L > 60 BUN/Creatinine Ratio 16.3 17.5 Glucose 105 H 81 Calcium 9.0 7.8 L Total Bilirubin 15.9 H 13.7 H Conjugated Bilirubin 9.1 H Unconjugated Bilirubin 2.8 H AST 475 H 387 H ALT 149 H 126 H Alkaline Phosphatase 163 H 124 Total Creatine Kinase 101 Troponin I 0.014 Total Protein 7.6 6.3 Albumin 4.0 3.1 L Globulin 3.6 3.2 Albumin/Globulin Ratio 1.1 1.0 Serum , Qual Negative Urine RBC None seen Urine WBC 1-5/hpf Ur Squamous Epith Cells 1-5 /hpf Urine Bacteria Many (>30) H Ur Culture Indicated? Specimen cultured Acetaminophen < 10 Ethyl Alcohol 77 H Blood Type A Positive Antibody Screen Negative Assessment & Plan Assessment & Plan narrative: # acute severe alcoholic hepatitis -T-bili 16, AST 475, ALT 149, INR 1.5 -maddrey's score of 37.5 -MELD 29 -liver US with only fatty infiltration -start IV solumedrol 32mg x28 days -monitor LFT's and INR -patient has history of Gilbert's which may be contributing to hyperbilirubinemia -hepatitis panel pending, abd US with only steatosis # acute alcohol withdrawals with NV -patient's last drink was 24 hours ago, etoh 77 -patient noticably withdrawing on exam -monitor CIWA, valium PRN due to ativan shortage -phenobarb given in ED -librium 50mg q6h -precedex drip -zofran PRN for NV -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 DVT prophylaxis with SCDs. Proxy is spouse Lubna. I have reviewed home meds and used all available resources to reconcile the home meds. I spent a total of 35 minutes of critical care time on this patient's care today; this time is exclusive of procedural time. Case discussed with ED physician/APC and patient will be admitted to the hospitalist service for further workup and management. This patient will be admitted as ICU and will require greater than 2 midnights of hospital time to treat severe alcoholic hepatitis and withdrawals.
[2023-02-12 12:17] LABS: Cholesterol 200 mg/dL (140-199); HDL Cholesterol 25 mg/dL (40-60); LDL Cholesterol Calculated 139 mg/dL (<100); Magnesium 1.4 mg/dL (1.6-2.3); Triglycerides 179 mg/dL (35-150)
[2023-02-12] MEDS: PHENobarbital 65 MG/ML VIAL 260 MG IV (12:21)
[2023-02-12 12:22] LABS: Lactate (Lactic Acid) 5.2 mmol/L (0.7-2.1)
[2023-02-12 12:55] LABS: Lactate (Lactic Acid) 1.5 mmol/L (0.7-2.1)
[2023-02-12] MEDS: dexmedeTOMIDine in 0.9 % NaCL 400 MCG/100 ML PLAST..BAG IV (13:11)
[2023-02-12] MEDS: chlordiazePOXIDE 25 MG CAPSULE 50 MG PO ×3 (13:15→23:47)
[2023-02-12] MEDS: MAGNESIUM SULFATE 2 GM/50 ML PIGGYBACK IV (13:15)
[2023-02-12] MEDS: methylPREDNISolone 125 MG/2 ML VIAL 32 MG IV (13:33)
[2023-02-12] MEDS: THIAMINE 100 MG TABLET PO (13:35)
[2023-02-12] MEDS: MULTIVITAMIN 1 TABLET 1 TAB PO (13:35)
[2023-02-12] MEDS: SODIUM CHLORIDE 0.9% 1,000 ML 100 ML IV (13:35)
[2023-02-12] MEDS: FOLIC ACID 1 MG TABLET PO (13:35)
[2023-02-12 13:48] LABS: Reflexed Lactate in 2 Hours Y
[2023-02-12 14:47] LABS: TSH w/ Reflex to FT4 1.46 uIU/mL (0.47-4.68)
[2023-02-12 14:48] LABS: MRSA (Nasal) PCR Not Detected (Not Detect)
--- NOTE | 2023-02-12 20:08 | P.TELICUCN_ITS ---
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 Patients ast/alt eleavted and with T bili 13.7 and INR 1.5. Maddrey score 35.5 she is otherwise awake and pleasant on precedex gtt, no signs of encephalopathy and is conversive [facility] Medical History History of arteriovenous malformation (AVM) Alcohol use disorder [place] disease Social History household members: spouse Smoking Status: Current every day smoker alcohol intake: current Current Medications Current Medications Medications: Home Medications ondansetron 4 mg disintegrating tablet 4 mg PO Q8H PRN nausea and vomiting #10 tabs 12/28/22 [Rx Confirmed 02/12/23] Visit Medications (administered) Generic Name Dose Route Start Last Admin Trade Name Freq PRN Reason Stop Dose Admin Chlordiazepoxide HCl 50 mg 02/12/23 12:00 02/12/23 17:33 Chlordiazepoxide 25 Mg Capsule PO 50 mg Q6HR AUBREY Administration Folic Acid 1 mg 02/12/23 11:45 02/12/23 13:35 Folic Acid 1 Mg Tablet PO 1 mg DAILY AUBREY Administration Sodium Chloride 1,000 mls @ 150 mls/hr 02/12/23 11:15 02/12/23 16:06 Normal Saline 0.9% IV 0 mls/hr CONT AUBREY Infusion Sodium Chloride 1,000 mls @ 100 mls/hr 02/12/23 11:30 02/12/23 13:35 Normal Saline 0.9% IV 02/12/23 23:29 100 mls/hr CONT AUBREY Administration dexmedeTOMIDine in 0.9 % NaCL 400 mcg in 100 mls @ 2.608 mls/hr 02/12/23 12:00 02/12/23 13:11 Precedex IV 0.2 mcg/kg/hr TITRATE AUBREY 2.608 mls/hr Administration Protocol 0.2 MCG/KG/HR Methylprednisolone 32 mg 02/12/23 11:45 02/12/23 13:33 Methylprednisolone 125 Mg/2 Ml Vial IV 03/12/23 11:44 32 mg DAILY AUBREY Administration Multivitamins 1 tab 02/12/23 11:45 02/12/23 13:35 Multivitamin 1 Tablet PO 1 tab DAILY AUBREY Administration Thiamine HCl 100 mg 02/12/23 11:45 02/12/23 13:35 Thiamine 100 Mg Tablet PO 02/15/23 09:01 100 mg DAILY AUBREY Administration Exam Vital Signs (past 8 hours): - 02/12/23 12:19 02/12/23 12:19 02/12/23 12:30 Temperature Pulse Rate 96 H 75 Respiratory Rate 20 19 Blood Pressure 117/82 Pulse Oximetry 97 97 Oxygen Delivery Method Room Air 02/12/23 12:30 02/12/23 12:36 02/12/23 12:45 Temperature Pulse Rate 108 H Respiratory Rate 22 Blood Pressure 119/76 145/90 H 124/74 Pulse Oximetry 97 Oxygen Delivery Method 02/12/23 12:45 02/12/23 13:00 02/12/23 13:02 Temperature 98.2 F Pulse Rate 83 79 Respiratory Rate 20 18 Blood Pressure 115/74 Pulse Oximetry 97 98 Oxygen Delivery Method Room Air 02/12/23 13:02 02/12/23 13:03 02/12/23 13:03 Temperature Pulse Rate 77 78 Respiratory Rate 17 17 Blood Pressure 115/74 Pulse Oximetry 98 98 Oxygen Delivery Method 02/12/23 13:30 02/12/23 14:00 02/12/23 14:00 Temperature Pulse Rate 74 86 Respiratory Rate 18 22 Blood Pressure 120/78 Pulse Oximetry 100 98 Oxygen Delivery Method 02/12/23 14:30 02/12/23 14:59 02/12/23 15:00 Temperature Pulse Rate 79 Respiratory Rate 16 Blood Pressure 120/76 109/68 Pulse Oximetry 98 Oxygen Delivery Method Room Air 02/12/23 15:00 02/12/23 15:30 02/12/23 16:00 Temperature Pulse Rate 77 74 Respiratory Rate 15 15 Blood Pressure 103/73 Pulse Oximetry 97 97 Oxygen Delivery Method 02/12/23 16:00 02/12/23 16:30 02/12/23 16:56 Temperature 98.6 F Pulse Rate 69 68 76 Respiratory Rate 15 15 16 Blood Pressure 111/80 Pulse Oximetry 97 96 98 Oxygen Delivery Method 02/12/23 17:00 02/12/23 17:02 02/12/23 17:02 Temperature Pulse Rate 209 H 94 H Respiratory Rate 45 H Blood Pressure 111/80 Pulse Oximetry 97 97 Oxygen Delivery Method 02/12/23 17:30 02/12/23 18:00 02/12/23 18:00 Temperature Pulse Rate 68 67 Respiratory Rate 17 16 Blood Pressure 103/67 Pulse Oximetry 98 97 Oxygen Delivery Method Oxygen Delivery Method Room Air Narrative Exam Narrative: awake , conversive NAD Eyes Other: + icterus Resp Other: non labored, symmetric chest rise Cardio Other: barrington controled Objective Labs 02/12/23 07:04 02/12/23 10:40 Labs: Laboratory Results - last 24 hr 02/12/23 02/12/23 02/12/23 07:04 07:32 10:40 WBC 7.3 RBC 3.90 L Hgb 13.5 Hct 38.0 MCV 97.5 MCH 34.5 H MCHC 35.4 RDW 14.9 H Plt Count 46 L Neut % (Auto) 79.2 H Lymph % (Auto) 10.2 L [place] % (Auto) 9.9 Eos % (Auto) 0.1 L Baso % (Auto) 0.6 Neut # (Auto) 5800 Lymph # (Auto) 800 L [place] # (Auto) 700 Eos # (Auto) 0 Baso # (Auto) 0 Platelet Estimate RBC Morphology Normal morphology PT 16.7 H INR 1.5 H APTT 25 L Sodium 129 L 130 L Potassium 3.1 L 3.3 L Chloride 84 L 91 L Carbon Dioxide 26 27 BUN 23 H 18 H Creatinine 1.41 H 1.03 Estimated GFR 46 L > 60 BUN/Creatinine Ratio 16.3 17.5 Glucose 105 H 81 Lactate 5.2 H* Calcium 9.0 7.8 L Magnesium 1.4 L Total Bilirubin 15.9 H 13.7 H Conjugated Bilirubin 9.1 H Unconjugated Bilirubin 2.8 H AST 475 H 387 H ALT 149 H 126 H Alkaline Phosphatase 163 H 124 Total Creatine Kinase 101 Troponin I 0.014 Total Protein 7.6 6.3 Albumin 4.0 3.1 L Globulin 3.6 3.2 Albumin/Globulin Ratio 1.1 1.0 Triglycerides 179 H Cholesterol 200 H LDL Cholesterol, Calc 139 H HDL Cholesterol 25 L TSH 1.46 Serum , Qual Negative Urine RBC None seen Urine WBC 1-5/hpf Ur Squamous Epith Cells 1-5 /hpf Urine Bacteria Many (>30) H Ur Culture Indicated? Specimen cultured Nasal Screen MRSA (PCR) Acetaminophen < 10 Ethyl Alcohol 77 H Blood Type A Positive Antibody Screen Negative 02/12/23 02/12/23 11:50 13:15 WBC RBC Hgb Hct MCV MCH MCHC RDW Plt Count Neut % (Auto) Lymph % (Auto) [place] % (Auto) Eos % (Auto) Baso % (Auto) Neut # (Auto) Lymph # (Auto) [place] # (Auto) Eos # (Auto) Baso # (Auto) Platelet Estimate RBC Morphology PT INR APTT Sodium Potassium Chloride Carbon Dioxide BUN Creatinine Estimated GFR BUN/Creatinine Ratio Glucose Lactate 1.5 Calcium Magnesium Total Bilirubin Conjugated Bilirubin Unconjugated Bilirubin AST ALT Alkaline Phosphatase Total Creatine Kinase Troponin I Total Protein Albumin Globulin Albumin/Globulin Ratio Triglycerides Cholesterol LDL Cholesterol, Calc HDL Cholesterol TSH Serum , Qual Urine RBC Urine WBC Ur Squamous Epith Cells Urine Bacteria Ur Culture Indicated? Nasal Screen MRSA (PCR) Not detected Acetaminophen Ethyl Alcohol Blood Type Antibody Screen Assessment & Plan Assessment and plan (1) Alcohol withdrawal: Status: Acute (2) Alcoholic hepatitis: Status: Acute (3) Acute hypokalemia: Status: Acute (4) Thrombocytopenia: Status: Acute Assessment & Plan narrative: continue precedex gtt benzodiazepines prn supplemental o2 as needed adat trend CMP agree with steroids - would consider prednisone daily hep serologies pending trend coags monitor UO replete lytes thiamine and folic acid scd given plt Suspect pt is likely cirrohitc, will need US of liver and eventual biopsy as well Total Crtical care time 35 min
[2023-02-13] VITALS (46 sets, daily range): BP systolic 87–129; BP diastolic 58–90; PULSE 58–102; RESP 11–31; TEMP 36.5–37.4; O2SAT 89–99
[2023-02-13] MEDS: HYDROMORPHONE 0.5 MG INJ IV ×4 (04:06→20:59)
[2023-02-13 04:10] LABS: HBsAg Screen Negative (Negative); Hepatitis A Antibody IgM Negative (Negative); Hepatitis B Core Antibody IgM Negative (Negative); Hepatitis C Antibody Non Reactive (Non Reactive)
[2023-02-13 04:32] LABS: INR 1.5 (0.9-1.3); Prothrombin Time 17.5 SECONDS (9.4-12.5)
[2023-02-13 04:37] LABS: Alanine Aminotransferase 129 IU/L (<35); Albumin 2.7 g/dL (3.5-5.0); Albumin Globulin Ratio 0.9 (1.0-2.8); Alkaline Phosphatase 117 U/L (38-126); Aspartate Aminotransferase 347 IU/L (14-36); BUN Creatinine Ratio 18.8 (6-22); Bilirubin Total 13.2 mg/dL (0.2-1.3); Blood Urea Nitrogen 15 mg/dL (7-17); Calcium 7.9 mg/dL (8.4-10.2); Carbon Dioxide 26 mmol/L (22-32); Chloride 98 mmol/L (98-107); Estimated Glomerular Filt Rate > 60 mL/min (>60); Glucose 122 mg/dL (70-100); HEMOLYSIS < 15 (0-50); Magnesium 2.1 mg/dL (1.6-2.3); Potassium 3.2 mmol/L (3.4-5.1); Sodium 131 mmol/L (137-145); Total Protein 5.7 g/dL (6.3-8.2)
[2023-02-13 04:38] LABS: Add Manual Diff / Slide Review NO; Basophils Absolute Auto 100 /uL (0-100); Basophils Percent Auto 1.1 % (0-2); Eosinophils Absolute Auto 0 /uL (0-450); Hematocrit 28.2 % (36-46); Hemoglobin 10.1 g/dL (12.0-16.0); Lymphocytes Absolute Auto 400 /uL (1100-4500); Lymphocytes Percent Auto 9.2 % (25-40); Mean Corpuscular HGB Conc 35.7 % (30-36); Mean Corpuscular Hemoglobin 35.1 PG (26-34); Mean Corpuscular Volume 98.4 fL (80-100); Monocytes Absolute Auto 400 /uL (0-900); Monocytes Percent Auto 7.5 % (3-14); Neutrophils Absolute Auto 3900 /uL (1500-7000); Neutrophils Percent Auto 82.2 % (50-75); Red Blood Cell Count 2.87 X10^6/uL (4.0-5.2); Red Cell Distribution Width 14.6 % (11.6-14.8); White Blood Cell Count 4.7 X10^3/uL (4.5-11.0)
[2023-02-13 04:48] LABS: Platelet Count 31 X10^3/uL (150-400)
[2023-02-13 05:10] LABS: RBC Morphology Normal Morphology
[2023-02-13 05:11] LABS: Platelet Estimate Decreased on smear
[2023-02-13] MEDS: chlordiazePOXIDE 25 MG CAPSULE 50 MG PO ×4 (06:10→23:44)
--- NOTE | 2023-02-13 06:19 | PC.NURSE ---
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 Precedex at 0.15-0.2mcg/kg/hr. Taking PO Librium Q6h, no extra Ativan needed. SR, prolonged QT, see rhythm strips, BP 90s/50s MAP > 70, SpO2 >94% on RA. IV Dilaudid given for back pain per prn order. Incontinent urine, 1 person SBA to BSC, Purewick placed.
[2023-02-13] MEDS: methylPREDNISolone 125 MG/2 ML VIAL 32 MG IV (08:40)
[2023-02-13] MEDS: FOLIC ACID 1 MG TABLET PO (08:40)
--- NOTE | 2023-02-13 08:40 | PM.PN.EICU ---
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 Labs sig for elevated LFTs and low platelets. Patient started on librium and Dex drip for ETOH withdrawal. Steroids started for alcoholic hepatitis Recent events: -Patient almost off Dex drip at 01. mcg/kg/hr -patient did not require any PRN ativan IVP overnight - Labs his morning sig for hgb drop from 13 to 10 and platelets drop from 64 to 31 -no overt bleeding (no black or bloody stools, no hematemesis) - patient is 2.9 L net positive in last 24 hours Current Medications Current Medications Medications: Home Medications ondansetron 4 mg disintegrating tablet 4 mg PO Q8H PRN nausea and vomiting #10 tabs 12/28/22 [Rx Confirmed 02/12/23] Visit Medications (administered) Generic Name Dose Route Start Last Admin Trade Name Freq PRN Reason Stop Dose Admin Chlordiazepoxide HCl 50 mg 02/12/23 12:00 02/13/23 06:10 Chlordiazepoxide 25 Mg Capsule PO 50 mg Q6HR AUBREY Administration Folic Acid 1 mg 02/12/23 11:45 02/12/23 13:35 Folic Acid 1 Mg Tablet PO 1 mg DAILY AUBREY Administration Hydromorphone HCl 0.5 mg 02/12/23 11:27 02/13/23 04:06 Hydromorphone 0.5 Mg Inj IV 0.5 mg Q4H PRN Administration Pain, Moderate (4-6) Sodium Chloride 1,000 mls @ 150 mls/hr 02/12/23 11:15 02/12/23 16:06 Normal Saline 0.9% IV 0 mls/hr CONT AUBREY Infusion dexmedeTOMIDine in 0.9 % NaCL 400 mcg in 100 mls @ 2.608 mls/hr 02/12/23 12:00 02/13/23 06:55 Precedex IV 0.25 mcg/kg/hr TITRATE AUBREY 3.26 mls/hr Titration Protocol 0.2 MCG/KG/HR Methylprednisolone 32 mg 12/29/23 11:45 02/12/23 13:33 Methylprednisolone 125 Mg/2 Ml Vial IV 03/12/23 11:44 32 mg DAILY AUBREY Administration Multivitamins 1 tab 02/12/23 11:45 02/12/23 13:35 Multivitamin 1 Tablet PO 1 tab DAILY AUBREY Administration Thiamine HCl 100 mg 02/12/23 11:45 02/12/23 13:35 Thiamine 100 Mg Tablet PO 02/15/23 09:01 100 mg DAILY AUBREY Administration Objective Labs 02/13/23 03:59 02/13/23 03:59 Labs: Laboratory Results - last 24 hr 02/12/23 02/12/23 02/12/23 07:04 07:32 10:05 WBC RBC Hgb Hct MCV MCH MCHC RDW Plt Count Neut % (Auto) Lymph % (Auto) [place] % (Auto) Eos % (Auto) Baso % (Auto) Neut # (Auto) Lymph # (Auto) [place] # (Auto) Eos # (Auto) Baso # (Auto) Platelet Estimate RBC Morphology PT INR Sodium Potassium Chloride Carbon Dioxide BUN Creatinine Estimated GFR BUN/Creatinine Ratio Glucose Lactate 5.2 H* Calcium Magnesium 1.4 L Total Bilirubin AST ALT Alkaline Phosphatase Total Protein Albumin Globulin Albumin/Globulin Ratio Triglycerides 179 H Cholesterol 200 H LDL Cholesterol, Calc 139 H HDL Cholesterol 25 L TSH 1.46 Urine RBC Urine WBC Ur Squamous Epith Cells Urine Bacteria Ur Culture Indicated? Nasal Screen MRSA (PCR) Hepatitis A IgM Ab Negative Hep Bs Antigen Negative Hep B Core IgM Ab Negative Hepatitis C Antibody Non reactive Hep C Ab Signal/Cutoff Comment Blood Type A Positive Antibody Screen Negative 02/12/23 02/12/23 02/12/23 10:40 11:50 13:15 WBC RBC Hgb Hct MCV MCH MCHC RDW Plt Count Neut % (Auto) Lymph % (Auto) [place] % (Auto) Eos % (Auto) Baso % (Auto) Neut # (Auto) Lymph # (Auto) [place] # (Auto) Eos # (Auto) Baso # (Auto) Platelet Estimate RBC Morphology PT INR Sodium 130 L Potassium 3.3 L Chloride 91 L Carbon Dioxide 27 BUN 18 H Creatinine 1.03 Estimated GFR > 60 BUN/Creatinine Ratio 17.5 Glucose 81 Lactate 1.5 Calcium 7.8 L Magnesium Total Bilirubin 13.7 H AST 387 H ALT 126 H Alkaline Phosphatase 124 Total Protein 6.3 Albumin 3.1 L Globulin 3.2 Albumin/Globulin Ratio 1.0 Triglycerides Cholesterol LDL Cholesterol, Calc HDL Cholesterol TSH Urine RBC None seen Urine WBC 1-5/hpf Ur Squamous Epith Cells 1-5 /hpf Urine Bacteria Many (>30) H Ur Culture Indicated? Specimen cultured Nasal Screen MRSA (PCR) Not detected Hepatitis A IgM Ab Hep Bs Antigen Hep B Core IgM Ab Hepatitis C Antibody Hep C Ab Signal/Cutoff Blood Type Antibody Screen 02/13/23 03:59 WBC 4.7 RBC 2.87 L Hgb 10.1 L Hct 28.2 L MCV 98.4 MCH 35.1 H MCHC 35.7 RDW 14.6 Plt Count 31 L* Neut % (Auto) 82.2 H Lymph % (Auto) 9.2 L [place] % (Auto) 7.5 Eos % (Auto) 0.0 L Baso % (Auto) 1.1 Neut # (Auto) 3900 Lymph # (Auto) 400 L [place] # (Auto) 400 Eos # (Auto) 0 Baso # (Auto) 100 Platelet Estimate Decreased on smear RBC Morphology Normal morphology PT 17.5 H INR 1.5 H Sodium 131 L Potassium 3.2 L Chloride 98 Carbon Dioxide 26 BUN 15 Creatinine 0.80 Estimated GFR > 60 BUN/Creatinine Ratio 18.8 Glucose 122 H Lactate Calcium 7.9 L Magnesium 2.1 Total Bilirubin 13.2 H AST 347 H ALT 129 H Alkaline Phosphatase 117 Total Protein 5.7 L Albumin 2.7 L Globulin 3.0 Albumin/Globulin Ratio 0.9 L Triglycerides Cholesterol LDL Cholesterol, Calc HDL Cholesterol TSH Urine RBC Urine WBC Ur Squamous Epith Cells Urine Bacteria Ur Culture Indicated? Nasal Screen MRSA (PCR) Hepatitis A IgM Ab Hep Bs Antigen Hep B Core IgM Ab Hepatitis C Antibody Hep C Ab Signal/Cutoff Blood Type Antibody Screen Exam Vital Signs (past 8 hours): - 02/13/23 01:00 02/13/23 01:00 02/13/23 01:03 Temperature Pulse Rate 63 64 Respiratory Rate 15 16 Blood Pressure 95/59 L Pulse Oximetry 96 96 Oxygen Delivery Method 02/13/23 02:00 02/13/23 02:00 02/13/23 02:40 Temperature Pulse Rate 64 66 Respiratory Rate 16 17 Blood Pressure 97/63 Pulse Oximetry 95 96 Oxygen Delivery Method 02/13/23 03:00 02/13/23 03:00 02/13/23 04:00 Temperature Pulse Rate 65 Respiratory Rate 17 Blood Pressure 94/61 Pulse Oximetry 96 Oxygen Delivery Method Room Air 02/13/23 04:00 02/13/23 04:00 02/13/23 04:27 Temperature 97.7 F Pulse Rate 87 64 Respiratory Rate 24 14 Blood Pressure 99/70 Pulse Oximetry 97 96 Oxygen Delivery Method 02/13/23 05:00 02/13/23 05:00 02/13/23 05:05 Temperature Pulse Rate 64 66 Respiratory Rate 15 15 Blood Pressure 98/63 Pulse Oximetry 95 96 Oxygen Delivery Method 02/13/23 06:00 02/13/23 06:00 02/13/23 06:43 Temperature Pulse Rate 65 64 Respiratory Rate 15 16 Blood Pressure 95/62 Pulse Oximetry 97 96 Oxygen Delivery Method 02/13/23 07:00 02/13/23 07:00 02/13/23 07:30 Temperature Pulse Rate 66 67 Respiratory Rate 17 17 Blood Pressure 94/63 Pulse Oximetry 96 96 Oxygen Delivery Method 02/13/23 07:47 02/13/23 08:00 02/13/23 08:00 Temperature 98 F Pulse Rate 66 Respiratory Rate 18 Blood Pressure 95/63 Pulse Oximetry 97 Oxygen Delivery Method Room Air Oxygen Delivery Method Room Air Narrative Exam Narrative: Patient seen over two way audio visual system. She is lethargic but does answer questions Quality TeleICU VTE Deep Vein Thrombosis/Pulmonary Embolism Present on Admission: No Assessment & Plan Assessment & Plan narrative: Assessment ETOH withdrawal ETOH hepatitis thrombocytopenia drop in hgb- probably from hemodilution mild hyponatremia Plan HEAD PORTER BAGGAGE: -wean Dex drip off -if patient lethargic despite being off Dex drip, consider weaning down Librium dose CV: BP is currently low normal (BP 90s/60s) despite patient is 2.9 L net positive -can consider midodrine if BP drops lower Pulm: no acute issues ID: no fever or leukocytosis Heme: pect drop in hgb is probably from hemodilution but given thrombocytopenia and ETOH dependence will monitor closely for signs of GI bleed -recheck hgb -increase protonix from 40 mg QD to BID -type and screen if not already done GI: continue solumedrol for alcoholic hepatitis FEN/Renal: -replace electrolytes as needed PPx: protonix -no heparin given severe thrombocytopenia CCT spent 50 min
[2023-02-13] MEDS: PANTOPRAZOLE 40 MG VIAL IV ×2 (08:41→20:32)
[2023-02-13] MEDS: SODIUM CHLORIDE 0.9% FLUSH 10 ML IV ×2 (08:41→20:32)
[2023-02-13] MEDS: THIAMINE 100 MG TABLET PO (08:41)
[2023-02-13] MEDS: MULTIVITAMIN 1 TABLET 1 TAB PO (08:41)
[2023-02-13] MEDS: POTASSIUM CHLORIDE 20 MEQ TAB 40 MEQ PO ×2 (09:48→15:31)
[2023-02-13 10:29] LABS: Hematocrit 30.1 % (36-46); Hemoglobin 10.7 g/dL (12.0-16.0); Mean Corpuscular HGB Conc 35.5 % (30-36); Mean Corpuscular Hemoglobin 35.1 PG (26-34); Mean Corpuscular Volume 98.7 fL (80-100); Platelet Count 38 X10^3/uL (150-400); Red Blood Cell Count 3.05 X10^6/uL (4.0-5.2); Red Cell Distribution Width 14.5 % (11.6-14.8); White Blood Cell Count 5.4 X10^3/uL (4.5-11.0)
--- NOTE | 2023-02-13 11:12 | CM.DANOTE ---
DCP Assessment Note Patient is a 47yo F here following alcohol withdrawal, N/V, with most recent CIWA of 1 but has been up to 7 since ED admission. PCP None listed Payer [place] and Medicaid CEMENT PATCHER reviewed EMR. Per provider in rounds, pt seems to be in denial about alcohol usage, claiming to have gone 48HRS without a drink but ED Ethyl alcohol level was 77 upon arrival. Per provider, pt claims to have one glass of wine or tariq daily but liver function and current withdrawal levels suggest heavier alcohol use. Provider reports pt's spouse also reports heavy alcohol usage. From RN, pt currently on precedex drip and is not alert enough for comprehensive dcp or substance use assessment conversation at this time. Plan: DCP pending at this time due to pt's current withdrawal status. CM team/CEMENT PATCHER team will continue to follow closely for safe dcp/JORGE assessment. BRYANT Yanes Discharge Planning/Care Management CM Discharge Assessment Start: 02/13/23 11:07 Freq: Status: Active Protocol: Document 02/13/23 11:08 (Rec: 02/13/23 11:11 [id number]) Discharge Planning Assessment Assigned Gas Leak Inspector Helper BRYANT Cantu DPOA/Assigned Designee Name Lubna Fernandez (spouse) Contact Information [phone] Advance Directives? No History Provided By Medical Record Prior Living Arrangements Apartment/Condo Household Members spouse Comment pt remains on precedex at this time. No alert enough for a comprehensive dcp assessment or substance use conversation Discharge Plan Home Whiteboard Updated in Patient Room with No name and ext. # of Gas Leak Inspector Helper Review Status In Process Next Review Type Continued Stay Review
[2023-02-13 11:16] LABS: Lipase 4446 U/L (23-300)
[2023-02-13] MEDS: SODIUM CHLORIDE 0.9% 1,000 ML 150 ML IV ×2 (11:39→17:52)
--- NOTE | 2023-02-13 15:04 | DI.CT.S_ITS ---
PROCEDURE: CT ABDOMEN PELVIS W CON INDICATIONS: right sided mullins pavon sign after fall, lipase 4000 TECHNIQUE: After the administration of intravenous contrast, axial sections acquired from the lung bases to the pubic symphysis. Coronal and sagittal reformats were performed. For radiation dose reduction, the following was used: automated exposure control, adjustment of mA and/or kV according to patient size. COMPARISON: [facility], CT, CT ANGIO ABD/PEL GI BLEED, 12/28/2022, 7:43. FINDINGS: Image quality: Diagnostic Lower chest: There are bibasilar opacities/atelectasis and small effusions. Partially seen breast implants. Liver: Marked hepatic steatosis. Hepatomegaly. Gallbladder and biliary system: Hyperemia of the gallbladder with mild pericholecystic stranding. No dilated biliary system identified. Pancreas: Diyn-sk-aqufgjdf peripancreatic fat stranding without decreased enhancement of the parenchyma. No ductal dilation. Spleen: No splenomegaly Adrenals: No discrete nodule Kidneys: No solid mass or hydronephrosis Vessels and lymph nodes: The main portal vein is patent. No abdominal aortic aneurysm. No pathologic lymph nodes by size criteria. Upper abdominal prominent lymph nodes could be reactive in this clinical setting. Bowel and peritoneum: No evidence of small bowel obstruction. Yiex-nc-cykfazfi ascites. Nonspecific fat stranding also seen in the retroperitoneum. tiny layering hyperdensity is seen is seen in the deep pelvis, possibly small hemorrhage or debris. Most of the ascites appears simple. Body wall: Lzkg-rw-dlkxxkjv diffuse anasarca Pelvis: Reproductive organs are not well evaluated on CT, consider ultrasound if there is concern. No gross abnormality. Bladder appears unremarkable. Bones: No acute or suspicious osseous findings. IMPRESSION: Acute interstitial pancreatitis. Hepatomegaly and severe steatosis. The combination of the above findings warrant GI follow-up. Mbco-ma-nefsyjly ascites and pleural effusions. Diffuse anasarca. Nonspecific fat stranding/inflammation in the retroperitoneum. A small amount of layering hyperdensity is seen in the deep pelvis, which could indicate a small amount of hemorrhage or debris. Most of the ascites however is simple. Bibasilar pulmonary opacities, likely atelectasis versus additional airspace disease. Dictated by: Uriel Carroll M.D. on 02/13/2023 at 15:48 Approved by: Uriel Carroll M.D. on 02/13/2023 at 15:55
--- NOTE | 2023-02-13 15:05 | PM.PN.1 ---
Subjective Subjective Interval history: Patient weaned off precedex today. Nurse noticed bruising on her bilateral flanks today. CT abdomen ordered. Patient having abd with any po intake so lipase ordered and is 4000. Made NPO and started IVF for pancreatitis. Exam Vital Signs (past 8 hours): - 02/13/23 07:30 02/13/23 07:47 02/13/23 08:00 Temperature Pulse Rate 67 Respiratory Rate 17 Blood Pressure 95/63 Pulse Oximetry 96 Oxygen Delivery Method Room Air 02/13/23 08:00 02/13/23 08:30 02/13/23 09:00 Temperature 98 F Pulse Rate 66 77 Respiratory Rate 18 27 H Blood Pressure 89/59 L Pulse Oximetry 97 98 Oxygen Delivery Method 02/13/23 09:00 02/13/23 09:02 02/13/23 09:02 Temperature Pulse Rate 74 71 Respiratory Rate 17 15 Blood Pressure 87/58 L Pulse Oximetry 95 96 Oxygen Delivery Method 02/13/23 09:30 02/13/23 09:57 02/13/23 09:57 Temperature Pulse Rate 86 70 Respiratory Rate 18 17 Blood Pressure 110/75 Pulse Oximetry 96 97 Oxygen Delivery Method 02/13/23 10:00 02/13/23 10:00 02/13/23 10:30 Temperature Pulse Rate 69 68 Respiratory Rate 17 15 Blood Pressure 100/70 Pulse Oximetry 96 97 Oxygen Delivery Method 02/13/23 11:00 02/13/23 11:00 02/13/23 11:30 Temperature Pulse Rate 71 70 Respiratory Rate 14 14 Blood Pressure 97/70 Pulse Oximetry 96 96 Oxygen Delivery Method 02/13/23 12:00 02/13/23 12:00 02/13/23 12:01 Temperature Pulse Rate 79 Respiratory Rate 16 Blood Pressure 119/67 Pulse Oximetry 96 Oxygen Delivery Method Room Air 02/13/23 12:01 02/13/23 12:30 02/13/23 13:00 Temperature Pulse Rate 71 75 82 Respiratory Rate 16 18 21 Blood Pressure Pulse Oximetry 93 97 97 Oxygen Delivery Method 02/13/23 13:01 02/13/23 13:01 02/13/23 13:30 Temperature Pulse Rate 77 79 Respiratory Rate 20 18 Blood Pressure 126/90 Pulse Oximetry 89 L 96 Oxygen Delivery Method 02/13/23 14:00 02/13/23 14:00 02/13/23 14:30 Temperature Pulse Rate 78 82 Respiratory Rate 31 H 19 Blood Pressure 118/85 Pulse Oximetry 97 96 Oxygen Delivery Method Oxygen Delivery Method Room Air Narrative Exam Narrative: GEN: anxious, tremulous, jaundiced HEENT: dry mucous membranes, PERRL, scleral icterus NECK: trachea midline, no JVD CV: tachycardic, no murmurs PULM: clear bilaterally ABD: soft, diffuse abd pain, nondistended, brusing present in bilateral flanks R>L EXT: warm and well perfused with no edema NEURO: awake, alert, oriented, no focal deficits Objective Labs 02/13/23 10:10 02/13/23 03:59 Labs: Laboratory Results - last 24 hr 02/12/23 02/13/23 02/13/23 10:05 03:59 10:10 WBC 4.7 5.4 RBC 2.87 L 3.05 L Hgb 10.1 L 10.7 L Hct 28.2 L 30.1 L MCV 98.4 98.7 MCH 35.1 H 35.1 H MCHC 35.7 35.5 RDW 14.6 14.5 Plt Count 31 L* 38 L Neut % (Auto) 82.2 H Lymph % (Auto) 9.2 L [place] % (Auto) 7.5 Eos % (Auto) 0.0 L Baso % (Auto) 1.1 Neut # (Auto) 3900 Lymph # (Auto) 400 L [place] # (Auto) 400 Eos # (Auto) 0 Baso # (Auto) 100 Platelet Estimate Decreased on smear RBC Morphology Normal morphology PT 17.5 H INR 1.5 H Sodium 131 L Potassium 3.2 L Chloride 98 Carbon Dioxide 26 BUN 15 Creatinine 0.80 Estimated GFR > 60 BUN/Creatinine Ratio 18.8 Glucose 122 H Calcium 7.9 L Magnesium 2.1 Total Bilirubin 13.2 H AST 347 H ALT 129 H Alkaline Phosphatase 117 Total Protein 5.7 L Albumin 2.7 L Globulin 3.0 Albumin/Globulin Ratio 0.9 L Lipase 4446 H Hepatitis A IgM Ab Negative Hep Bs Antigen Negative Hep B Core IgM Ab Negative Hepatitis C Antibody Non reactive Hep C Ab Signal/Cutoff Comment [facility] Medical History History of arteriovenous malformation (AVM) Alcohol use disorder [place] disease Social History household members: spouse Smoking Status: Current every day smoker alcohol intake: current Assessment & Plan Assessment & Plan narrative: # acute severe alcoholic hepatitis -T-bili 16, AST 475, ALT 149, INR 1.5 -maddrey's score of 37.5 -MELD 29 -liver US with only fatty infiltration -start IV solumedrol 32mg x28 days -monitor LFT's and INR -patient has history of Gilbert's which may be contributing to hyperbilirubinemia -hepatitis panel pending, abd US with only steatosis # acute pancreatitis -patient have abd pain and lipase 4000, initial CT didn't note pancreatic inflammation -repeat CT ordered -trend lipase -NPO and IVF # acute alcohol withdrawals -patient's last drink was 24 hours ago, etoh 77 -patient noticably withdrawing on exam -monitor CIWA, valium PRN due to ativan shortage -phenobarb given in ED -librium 50mg q6h -precedex drip now weaned off -zofran PRN for [place] -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 DVT prophylaxis with SCDs. Proxy is spouse Lubna. I have reviewed home meds and used all available resources to reconcile the home meds. Dispo: Pending improvement in alcoholic hepatitis and pancreatitis. Several days. Quality VTE Deep Vein Thrombosis/Pulmonary Embolism Present on Admission: No
--- NOTE | 2023-02-13 16:00 | PC.NURSE ---
1000 pt noted to have severe abdominal pain with any PO intake, MD notified and labs ordered, Lipase >4000, IV fluids and NPO ordered. Weaned from precidex and CIWA remains at 0. Bruising noted to jazzmine flank areas, MD notified and CT ordered.
[2023-02-13 16:47] LABS: Add Manual Diff / Slide Review YES; Hematocrit 31.6 % (36-46); Hemoglobin 11.2 g/dL (12.0-16.0); Mean Corpuscular HGB Conc 35.3 % (30-36); Mean Corpuscular Hemoglobin 34.9 PG (26-34); Mean Corpuscular Volume 98.6 fL (80-100); Platelet Count 45 X10^3/uL (150-400); Red Blood Cell Count 3.21 X10^6/uL (4.0-5.2); Red Cell Distribution Width 14.8 % (11.6-14.8); White Blood Cell Count 5.7 X10^3/uL (4.5-11.0)
[2023-02-13 16:55] LABS: Alanine Aminotransferase 168 IU/L (<35); Albumin 3.3 g/dL (3.5-5.0); Albumin Globulin Ratio 0.9 (1.0-2.8); Alkaline Phosphatase 163 U/L (38-126); Aspartate Aminotransferase 420 IU/L (14-36); BUN Creatinine Ratio 21.2 (6-22); Bilirubin Total 15.2 mg/dL (0.2-1.3); Blood Urea Nitrogen 14 mg/dL (7-17); Calcium 8.5 mg/dL (8.4-10.2); Carbon Dioxide 25 mmol/L (22-32); Chloride 96 mmol/L (98-107); Estimated Glomerular Filt Rate > 60 mL/min (>60); Globulin 3.5 g/dL (1.7-4.1); Glucose 130 mg/dL (70-100); HEMOLYSIS 47 (0-50); Potassium 3.9 mmol/L (3.4-5.1); Sodium 129 mmol/L (137-145); Total Protein 6.8 g/dL (6.3-8.2)
[2023-02-13 17:00] LABS: Lipase 3889 U/L (23-300)
[2023-02-13 17:08] LABS: Neutrophils Absolute Manual 5187 /uL (3000-5900); Total Cells Counted 100
[2023-02-13 17:11] LABS: Platelet Estimate Decreased on smear; Target Cells 1+
[2023-02-13] MEDS: ONDANSETRON 4 MG/2 ML INJ IV (23:09)
[2023-02-14] VITALS (37 sets, daily range): BP systolic 102–127; BP diastolic 68–85; PULSE 80–110; RESP 10–27; TEMP 36.6–39; O2SAT 95–100
[2023-02-14] MEDS: SODIUM CHLORIDE 0.9% 1,000 ML 150 ML IV ×4 (00:26→19:59)
[2023-02-14] MEDS: HYDROMORPHONE 0.5 MG INJ IV ×4 (00:41→18:56)
[2023-02-14] MEDS: LORazepam 1 MG TABLET PO ×2 (02:09→15:55)
[2023-02-14 04:50] LABS: Add Manual Diff / Slide Review NO; Basophils Absolute Auto 0 /uL (0-100); Basophils Percent Auto 0.2 % (0-2); Eosinophils Absolute Auto 0 /uL (0-450); Eosinophils Percent Auto 0.3 % (2-4); Hematocrit 28.3 % (36-46); Hemoglobin 10.1 g/dL (12.0-16.0); Lymphocytes Absolute Auto 700 /uL (1100-4500); Lymphocytes Percent Auto 12.5 % (25-40); Mean Corpuscular HGB Conc 35.7 % (30-36); Mean Corpuscular Hemoglobin 35.1 PG (26-34); Mean Corpuscular Volume 98.6 fL (80-100); Monocytes Absolute Auto 600 /uL (0-900); Neutrophils Absolute Auto 4000 /uL (1500-7000); Platelet Count 53 X10^3/uL (150-400); Red Blood Cell Count 2.88 X10^6/uL (4.0-5.2); Red Cell Distribution Width 15.2 % (11.6-14.8); White Blood Cell Count 5.2 X10^3/uL (4.5-11.0)
[2023-02-14 04:55] LABS: Alanine Aminotransferase 154 IU/L (<35); Albumin 2.8 g/dL (3.5-5.0); Albumin Globulin Ratio 0.9 (1.0-2.8); Alkaline Phosphatase 142 U/L (38-126); Aspartate Aminotransferase 356 IU/L (14-36); BUN Creatinine Ratio 18.5 (6-22); Bilirubin Total 12.7 mg/dL (0.2-1.3); Blood Urea Nitrogen 10 mg/dL (7-17); Calcium 7.9 mg/dL (8.4-10.2); Carbon Dioxide 26 mmol/L (22-32); Chloride 102 mmol/L (98-107); Estimated Glomerular Filt Rate > 60 mL/min (>60); Glucose 105 mg/dL (70-100); HEMOLYSIS < 15 (0-50); INR 1.5 (0.9-1.3); Magnesium 1.8 mg/dL (1.6-2.3); Potassium 3.4 mmol/L (3.4-5.1); Prothrombin Time 17.5 SECONDS (9.4-12.5); Sodium 132 mmol/L (137-145); Total Protein 5.8 g/dL (6.3-8.2)
[2023-02-14 05:03] LABS: Lipase 2077 U/L (23-300)
--- NOTE | 2023-02-14 06:19 | PC.NURSE ---
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
[2023-02-14] MEDS: chlordiazePOXIDE 25 MG CAPSULE 50 MG PO ×3 (06:40→20:00)
--- NOTE | 2023-02-14 07:44 | DI.RAD.S_ITS ---
PROCEDURE: XR CHEST 1V INDICATIONS: new fever TECHNIQUE: One view of the chest was acquired. COMPARISON: [facility], CR, XR CHEST 1V, 02/12/2023, 7:06. [facility], CR, XR CHEST 1V, 01/14/2023, 17:44. FINDINGS: Surgical changes and devices: None. Lungs and pleura: Left basilar opacity is seen with silhouetting of the left hemidiaphragm. Possible trace left pleural effusion. Mildly low lung volumes are noted bilaterally. No pneumothorax. Mediastinum: Mediastinal contours appear normal. Heart size is normal. Bones and chest wall: No suspicious bony lesions. Overlying soft tissues appear unremarkable. IMPRESSION: Left pleural effusion with new left basilar atelectasis or consolidation. Approved by: Сергей Melgar M.D. on 02/14/2023 at 8:54
[2023-02-14] MEDS: ACETAMINOPHEN 325 MG TABLET PO (07:46)
[2023-02-14] MEDS: POTASSIUM CHLORIDE 20 MEQ TAB 40 MEQ PO (07:51)
[2023-02-14] MEDS: DOXYCYCLINE HYCLATE 100 MG TABLET PO ×2 (08:09→20:38)
[2023-02-14] MEDS: CEFEPIME 2 GM in SODIUM CHLORIDE 0.9% 100 ML IV ×2 (08:09→19:59)
[2023-02-14] MEDS: FOLIC ACID 1 MG TABLET PO (08:31)
[2023-02-14] MEDS: THIAMINE 100 MG TABLET PO (08:31)
[2023-02-14] MEDS: MULTIVITAMIN 1 TABLET 1 TAB PO (08:31)
[2023-02-14] MEDS: methylPREDNISolone 125 MG/2 ML VIAL 32 MG IV (08:32)
[2023-02-14] MEDS: PANTOPRAZOLE 40 MG VIAL IV ×2 (08:32→20:38)
[2023-02-14] MEDS: SODIUM CHLORIDE 0.9% FLUSH 10 ML IV ×2 (08:33→20:00)
--- NOTE | 2023-02-14 09:21 | PC.NURSE ---
0745 Pt temp 101.7, notified, CXR and blood cultures ordered, abx given after lab work drawn.
--- NOTE | 2023-02-14 10:17 | CM.DPNOTE ---
Addendum entered by BRYANT Yanes 02/14/23 14:33: Pt remains not alert enough for comprehensive dcp/JORGE Ax conversation at this time, 1430. CM team/HOTEL ASSOCIATE will attempt again tomorrow SL Original Note: DCP Note HOTEL ASSOCIATE reviewed EMR. Per provider, pt has bad liver functioning and pancreatitis simultaneously. Per chart review, pt now has temp of 102. Provider reports pt is overall weak, but not stable enough for PT eval. Per provider, pt not alert enough at this time for appropriate dcp/HOTEL ASSOCIATE consult conversation. HOTEL ASSOCIATE will continue to follow closely/conduct JORGE Ax/DCP Ax when able. BRYANT Yanes
--- NOTE | 2023-02-14 11:21 | P.PN_ITS ---
Subjective Subjective Interval history: Had a temp of 102.2F today. Blood cutlures drawn. CXR shows possible LLL pneumonia. Cefepime and doxy started. Patient still very weak and sleepy today. Urine growing E. coli. Exam Vital Signs (past 8 hours): - 02/14/23 04:00 02/14/23 04:00 02/14/23 04:00 Temperature 99.2 F Pulse Rate 103 H Respiratory Rate 19 Blood Pressure 114/75 Pulse Oximetry 98 Oxygen Delivery Method Oxygen Flow Rate 02/14/23 04:30 02/14/23 05:00 02/14/23 05:30 Temperature Pulse Rate 105 H 106 H 110 H Respiratory Rate 17 10 L 12 Blood Pressure Pulse Oximetry 97 95 95 Oxygen Delivery Method Oxygen Flow Rate 02/14/23 06:00 02/14/23 06:30 02/14/23 07:00 Temperature Pulse Rate 104 H 103 H 105 H Respiratory Rate 11 L 12 15 Blood Pressure Pulse Oximetry 95 97 97 Oxygen Delivery Method Oxygen Flow Rate 02/14/23 07:29 02/14/23 07:29 02/14/23 07:30 Temperature Pulse Rate 102 H 101 H Respiratory Rate 16 15 Blood Pressure 108/74 Pulse Oximetry 97 97 Oxygen Delivery Method Oxygen Flow Rate 02/14/23 07:31 02/14/23 07:34 02/14/23 07:46 Temperature 101.8 F H 101.7 F H Pulse Rate 110 H Respiratory Rate 16 Blood Pressure 108/74 Pulse Oximetry 97 Oxygen Delivery Method Room Air Oxygen Flow Rate 02/14/23 08:31 02/14/23 11:00 Temperature 102.2 F H 98.7 F Pulse Rate 97 H Respiratory Rate 12 Blood Pressure 107/74 Pulse Oximetry 97 Oxygen Delivery Method Oxygen Flow Rate 0 Oxygen Delivery Method Room Air Oxygen Flow Rate 0 Narrative Exam Narrative: GEN: somnolent, jaundiced HEENT: dry mucous membranes, PERRL, scleral icterus NECK: trachea midline, no JVD CV: tachycardic, no murmurs PULM: clear bilaterally ABD: soft, diffuse abd pain, nondistended, bruising present in bilateral flanks R>L EXT: warm and well perfused with no edema NEURO: awake, alert, oriented, no focal deficits Objective Labs 02/14/23 04:16 02/14/23 04:16 Labs: Laboratory Results - last 24 hr 02/13/23 02/14/23 16:25 04:16 WBC 5.7 5.2 RBC 3.21 L 2.88 L Hgb 11.2 L 10.1 L Hct 31.6 L 28.3 L MCV 98.6 98.6 MCH 34.9 H 35.1 H MCHC 35.3 35.7 RDW 14.8 15.2 H Plt Count 45 L 53 L Neut % (Auto) Not Reportable 76.0 H Lymph % (Auto) Not Reportable 12.5 L [place] % (Auto) Not Reportable 11.0 Eos % (Auto) Not Reportable 0.3 L Baso % (Auto) Not Reportable 0.2 Neut # (Auto) 4000 Lymph # (Auto) Not Reportable 700 L [place] # (Auto) Not Reportable 600 Eos # (Auto) 0 Baso # (Auto) Not Reportable 0 Total Counted 100 Seg Neutrophils % 85.0 H Band Neutrophils % 6.0 Lymphocytes % (Manual) 4.0 L Monocytes % (Manual) 4.0 Eosinophils % (Manual) 1.0 L Neutrophils # (Manual) 5187 Platelet Estimate Decreased on smear RBC Morphology See below Target Cells 1+ H PT 17.5 H INR 1.5 H Sodium 129 L 132 L Potassium 3.9 3.4 Chloride 96 L 102 Carbon Dioxide 25 26 BUN 14 10 Creatinine 0.66 0.54 Estimated GFR > 60 > 60 BUN/Creatinine Ratio 21.2 18.5 Glucose 130 H 105 H Calcium 8.5 7.9 L Magnesium 1.8 Total Bilirubin 15.2 H 12.7 H AST 420 H 356 H ALT 168 H 154 H Alkaline Phosphatase 163 H 142 H Total Protein 6.8 5.8 L Albumin 3.3 L 2.8 L Globulin 3.5 3.0 Albumin/Globulin Ratio 0.9 L 0.9 L Lipase 3889 H 2077 H [facility] Medical History History of arteriovenous malformation (AVM) Alcohol use disorder [place] disease Social History household members: spouse Smoking Status: Current every day smoker alcohol intake: current Assessment & Plan Assessment & Plan narrative: # sepsis 2/2 possible pneumonia vs UTI -temp of 102.2F and tachy on 02/14, no leukocytosis -CXR with LLL consolidation vs atelectasis, UA with pyuria and growing E. coli -cefepime and doxy -f/up blood cultures -continue IVF # acute severe alcoholic hepatitis -T-bili 16, AST 475, ALT 149, INR 1.5 -maddrey's score of 37.5 -MELD 29 -liver US with only fatty infiltration -start IV solumedrol 32mg x28 days -monitor LFT's and INR -patient has history of Gilbert's which may be contributing to hyperbilirubinemia -hepatitis panel pending, abd US with only steatosis # acute pancreatitis -patient have abd pain and lipase 4000, initial CT didn't note pancreatic inflammation but repeat does -repeat CT ordered -trend lipase -NPO and IVF # acute alcohol withdrawals -patient's last drink was 24 hours ago, etoh 77 -patient noticably withdrawing on exam -monitor CIWA, valium PRN due to ativan shortage -phenobarb given in ED -librium 50mg q6h -precedex drip now weaned off -zofran PRN for NV -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 # presyncope and fall -patient notes she blacked out when standing up, then fell and hit her head and back -likely orthostatic from hypovolemia -IVF -CT CAP, CT head/cervical without fractures or trauma -dialudid IV PRN for pain -repeat CT abd ordered 02/13 due to flanks bruising concerning for Avila-Olivarez sign, shows possible small amount of hemorrhage vs debris, mild-mod ascites # hypokalemia, hypomag -replete and monitor # thrombocytopenia -platelets 46 on admission -likely due to alcoholism and liver damage -avoid blood thinners -monitor # tobacco dependence -nicotine patch if patient requests Code status is full code. DVT prophylaxis with SCDs. Proxy is spouse Lubna. I have reviewed home meds and used all available resources to reconcile the home meds. Dispo: Pending improvement in alcoholic hepatitis and pancreatitis. Several days. Quality VTE Deep Vein Thrombosis/Pulmonary Embolism Present on Admission: No
[2023-02-14 12:17] LABS: Ammonia (NH3) < 9 umol/L (9-30)
[2023-02-14 12:57] LABS: Adenovirus Not Detected (Not Detect); B. parapertussis Not Detected (Not Detecte); Bordetella pertussis Not Detected (Not Detect); Chlamydophila pneumoniae Not Detected (Not Detect); Coronavirus 229E Not Detected (Not Detect); Coronavirus HKU1 Not Detected (Not Detect); Coronavirus NL 63 Not Detected (Not Detect); Coronavirus OC43 Not Detected (Not Detect); Human Metapneumovirus Not Detected (Not Detect); Human Rhinovirus/Enterovirus Not Detected (Not Detect); Influenza A Not Detected (Not Detect); Influenza B Not Detected (Not Detect); Mycoplasma pneumoniae Not Detected (Not Detect); Parainfluenza Virus 1 Not Detected (Not Detect); Parainfluenza Virus 2 Not Detected (Not Detect); Parainfluenza Virus 3 Not Detected (Not Detect); Parainfluenza Virus 4 Not Detected (Not Detect); Respiratory Syncytial Virus Not Detected (Not Detect); SARS- CoV-2 Not Detected (Not Detecte)
[2023-02-14] MEDS: ONDANSETRON 4 MG/2 ML INJ IV ×2 (12:58→22:02)
[2023-02-14] MEDS: CALCIUM CARBONATE 500 MG TAB 1000 MG PO (19:15)
[2023-02-15] VITALS: BP 147/89; PULSE 95; RESP 22; TEMP 37.6; O2SAT 99
[2023-02-15] MEDS: HYDROMORPHONE 0.5 MG INJ IV ×4 (00:04→20:07)
[2023-02-15] MEDS: SODIUM CHLORIDE 0.9% 1,000 ML 150 ML IV (03:48)
[2023-02-15] MEDS: chlordiazePOXIDE 25 MG CAPSULE 50 MG PO (03:49)
[2023-02-15 04:00] VITALS: BP 127/82; PULSE 97; RESP 17; TEMP 36.8; O2SAT 98
[2023-02-15 04:57] LABS: Add Manual Diff / Slide Review NO; Basophils Absolute Auto 0 /uL (0-100); Basophils Percent Auto 0.7 % (0-2); Eosinophils Absolute Auto 0 /uL (0-450); Eosinophils Percent Auto 0.7 % (2-4); Hematocrit 27.8 % (36-46); Hemoglobin 9.8 g/dL (12.0-16.0); Lymphocytes Absolute Auto 500 /uL (1100-4500); Lymphocytes Percent Auto 9.4 % (25-40); Mean Corpuscular HGB Conc 35.5 % (30-36); Mean Corpuscular Hemoglobin 34.9 PG (26-34); Mean Corpuscular Volume 98.4 fL (80-100); Monocytes Absolute Auto 900 /uL (0-900); Monocytes Percent Auto 18.7 % (3-14); Neutrophils Absolute Auto 3400 /uL (1500-7000); Neutrophils Percent Auto 70.5 % (50-75); Platelet Count 81 X10^3/uL (150-400); Red Blood Cell Count 2.82 X10^6/uL (4.0-5.2); Red Cell Distribution Width 15.1 % (11.6-14.8); White Blood Cell Count 4.8 X10^3/uL (4.5-11.0)
[2023-02-15 05:02] LABS: INR 1.6 (0.9-1.3); Prothrombin Time 17.9 SECONDS (9.4-12.5)
[2023-02-15 05:09] LABS: Alanine Aminotransferase 143 IU/L (<35); Albumin 2.7 g/dL (3.5-5.0); Albumin Globulin Ratio 0.8 (1.0-2.8); Alkaline Phosphatase 140 U/L (38-126); Aspartate Aminotransferase 252 IU/L (14-36); BUN Creatinine Ratio 11.5 (6-22); Blood Urea Nitrogen 6 mg/dL (7-17); Carbon Dioxide 24 mmol/L (22-32); Chloride 103 mmol/L (98-107); Estimated Glomerular Filt Rate > 60 mL/min (>60); Globulin 3.2 g/dL (1.7-4.1); Glucose 144 mg/dL (70-100); HEMOLYSIS < 15 (0-50); Lipase 1152 U/L (23-300); Magnesium 1.4 mg/dL (1.6-2.3); Potassium 2.9 mmol/L (3.4-5.1); Sodium 133 mmol/L (137-145); Total Protein 5.9 g/dL (6.3-8.2)
[2023-02-15] MEDS: CEFEPIME 2 GM in SODIUM CHLORIDE 0.9% 100 ML IV ×2 (07:58→20:11)
[2023-02-15] MEDS: MAGNESIUM CHLORIDE 64 MG TABLET 128 MG PO (07:59)
[2023-02-15] MEDS: POTASSIUM CHLORIDE 20 MEQ TAB 40 MEQ PO ×2 (07:59→14:00)
[2023-02-15 08:00] VITALS: BP 119/78; PULSE 98; RESP 20; TEMP 37.3; O2SAT 99
--- NOTE | 2023-02-15 08:30 | PM.PN.1 ---
Subjective Subjective Interval history: She is awake and notes little abdomen pain. She is oriented. She denies nausea or dyspnea. Exam Vital Signs (past 8 hours): - 02/15/23 04:00 Temperature 98.3 F Pulse Rate 97 H Respiratory Rate 17 Blood Pressure 127/82 Pulse Oximetry 98 Oxygen Delivery Method Room Air Oxygen Flow Rate 0 Narrative Exam Narrative: NAD Oriented to place Lungs are clear with normal effort Heart regular and without murmur Abdomen is mildy distended and non-tender. No leg edema or rash. No tremor. Objective Labs 02/15/23 04:14 02/15/23 04:14 Labs: Laboratory Results - last 24 hr 02/14/23 02/14/23 02/15/23 11:50 12:00 04:14 WBC 4.8 RBC 2.82 L Hgb 9.8 L Hct 27.8 L MCV 98.4 MCH 34.9 H MCHC 35.5 RDW 15.1 H Plt Count 81 L Neut % (Auto) 70.5 Lymph % (Auto) 9.4 L [place] % (Auto) 18.7 H Eos % (Auto) 0.7 L Baso % (Auto) 0.7 Neut # (Auto) 3400 Lymph # (Auto) 500 L [place] # (Auto) 900 Eos # (Auto) 0 Baso # (Auto) 0 PT 17.9 H INR 1.6 H Sodium 133 L Potassium 2.9 L Chloride 103 Carbon Dioxide 24 BUN 6 L Creatinine 0.52 Estimated GFR > 60 BUN/Creatinine Ratio 11.5 Glucose 144 H Calcium 8.0 L Magnesium 1.4 L Total Bilirubin 11.0 H AST 252 H ALT 143 H Alkaline Phosphatase 140 H Ammonia < 9 L Total Protein 5.9 L Albumin 2.7 L Globulin 3.2 Albumin/Globulin Ratio 0.8 L Lipase 1152 H Chlamy pneumoniae PCR Not detected Adenovirus (PCR) Not detected B.parapertussis DNA PCR Not detected Coronavirus OC43 (PCR) Not detected Coronavirus HKU1 (PCR) Not detected Coronavirus 229E (PCR) Not detected SARS-CoV-2 (PCR) Not detected Coronavirus NL63 (PCR) Not detected Human Metapneumovir PCR Not detected Influenza Type A (PCR) Not detected Influenza Type B (PCR) Not detected M. pneumoniae (PCR) Not detected Parainfluenza 1 (PCR) Not detected Parainfluenza 2 (PCR) Not detected Parainfluenza 3 (PCR) Not detected Parainfluenza 4 (PCR) Not detected RSV (PCR) Not detected Entero/Rhino (PCR) Not detected [facility] Medical History History of arteriovenous malformation (AVM) Alcohol use disorder [place] disease Social History household members: spouse Smoking Status: Current every day smoker alcohol intake: current Assessment & Plan Assessment & Plan narrative: 1. Sepsis from pneumonia and UTI. POA and improving. -temp of 102.2F and tachycardia on 02/14, no leukocytosis -CXR with LLL consolidation vs atelectasis, UA with pyuria and growing E. coli -cefepime and doxy (5 days course). -f/up blood cultures -continue IVF, advance diet. 2. Acute severe alcoholic hepatitis, POA and improving. -Initial T-bili 16, AST 475, ALT 149, INR 1.5 -Maddrey's score of 37.5 -MELD 29 -liver US with only fatty infiltration -started IV solumedrol 32mg x28 days -monitor LFT's and INR -patient has history of Gilbert's which may be contributing to hyperbilirubinemia -hepatitis panel pending, abd US with only steatosis 3. Acute pancreatitis, POA and improving. -patient have abdomen pain and lipase 4000, initial CT didn't note pancreatic inflammation but repeat does -repeat CT ordered -trend lipase -advance diet. 4. Hypokalemia and Hypomagnesemia, new and active. -replete and follow. 5. Acute alcohol withdrawal, POA and improved. -patient's last drink was 24 hours ago, etoh 77 -patient initially noticably withdrawing on exam -monitored CIWA, valium PRN due to ativan shortage. 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 6. Presyncope and fall, .POA and improving. Ataxic. -patient notes she blacked out when standing up, then fell and hit her head and back -likely was orthostatic from hypovolemia -IVF -CT CAP, CT head/cervical without fractures or trauma -repeat CT abd ordered 02/13 due to flanks bruising concerning for Avila-Olivarez sign, shows possible small amount of hemorrhage vs debris, mild-mod ascites 7. Thrombocytopenia, POA. -platelets 46 on admission -likely due to alcoholism and liver damage -avoid blood thinners -monitor 8. Tobacco dependence, POA. -nicotine patch if patient requests Code status is full code. DVT prophylaxis with SCDs. Proxy is spouse Lubna. I have reviewed home meds and used all available resources to reconcile the home meds. Dispo: Pending improvement in alcoholic hepatitis and pancreatitis. Several days. Quality VTE Deep Vein Thrombosis/Pulmonary Embolism Present on Admission: No Quality VTE Deep Vein Thrombosis/Pulmonary Embolism Present on Admission: No
[2023-02-15] MEDS: MAGNESIUM SULFATE 2 GM/50 ML PIGGYBACK IV (09:12)
[2023-02-15] MEDS: methylPREDNISolone 125 MG/2 ML VIAL 32 MG IV (09:13)
[2023-02-15] MEDS: PANTOPRAZOLE 40 MG VIAL IV ×2 (09:13→20:11)
[2023-02-15] MEDS: chlordiazePOXIDE 25 MG CAPSULE PO ×2 (09:13→18:41)
[2023-02-15] MEDS: MULTIVITAMIN 1 TABLET 1 TAB PO (09:13)
[2023-02-15] MEDS: FOLIC ACID 1 MG TABLET PO (09:13)
[2023-02-15] MEDS: THIAMINE 100 MG TABLET PO (09:13)
[2023-02-15] MEDS: DOXYCYCLINE HYCLATE 100 MG TABLET PO ×2 (09:13→20:11)
[2023-02-15] MEDS: SODIUM CHLORIDE 0.9% FLUSH 10 ML IV ×2 (09:15→20:31)
--- NOTE | 2023-02-15 10:05 | CM.DPNOTE ---
DCP Note ELECTRIC CUTTER OPERATOR reviewed EMR. CIWAs lower at this time- 0 to 8 over past 24hrs. ELECTRIC CUTTER OPERATOR attempted to inquire about if pt was alert enough for ELECTRIC CUTTER OPERATOR substance use/dcp assessment and pt actively vomiting in room with PCT to assist. Per PCT, pt confused, saying she's been here for over a month (pt has been here for 4 days so far) and other not oriented things. Per PCT, pt continues to deny that alcohol use is an issue for her and deny her current medical condition may be in large part due to heavy drinking. Per provider in rounds, pt remains confused and likely would benefit postponing ELECTRIC CUTTER OPERATOR JORGE Ax for now. Plan: pt likely to be here for another several days. CM/ELECTRIC CUTTER OPERATOR team will continue to follow closely for appropriate DCP/JORGE conversation with pt when medically stable. DCP may be pending if pt remains in heavy denial about alcohol usage. BRYANT Yanes
[2023-02-15 12:00] VITALS: BP 137/87; PULSE 106; RESP 33; TEMP 37.2; O2SAT 98
[2023-02-15 16:00] VITALS: BP 133/87; RESP 32; TEMP 37.2; O2SAT 98
--- NOTE | 2023-02-15 16:19 | CM.DPC ---
DCP Cont: SW happened to meet bedside with pt and spouse and explained role as they had a question as SW was walking by. Pt still appears shaky but was eating food her spouse brought in and seems to be improving but was somewhat unclear about some of her answers as she is still being weaned from sedating medications. Pt denies any hx of ETOH tx and states she is not a drug abuser or in need of JORGE treatment at this time. Pt quite adamant that she was hopeful to discharge home today but is aware that MD has not medically cleared her yet for safe discharge. Pt has a hx of CVA and uses a cane at baseline and states she is currently working and so is spouse. Pt states she used HH in the past after CVA and has not had the best experience with PT in the past. Spouse states he feels he can support pt at home but would be agreeable to any PT exercise and DME recommendations prior to discharge but currently does not feel HH or SNF needed. Pt states she has an established counselor/therapist but does not feel she is being heard or understood by her therapist and does not feel they are very helpful. Pt confirms she would be agreeable to a list of local therapists but states they do not have insurance but money is not a problem and they pay privately for therapist and will continue to do so as well. Pt has a hx of the of her mother and grandmother last year and discusses some grief still. Currently the only needs that patient and spouse are requesting are a list of local therapists and PT recommendations for home that spouse can assist with. Plan: SW to follow up with pt and spouse again tomorrow when pt more medically stable to confirm home plan and provide some resources. BRYANT Joe
[2023-02-15 20:00] VITALS: BP 122/86; PULSE 85; RESP 18; TEMP 36.7; O2SAT 99
[2023-02-16] VITALS: BP 133/92; PULSE 98; RESP 23; TEMP 37.1; O2SAT 99
[2023-02-16] MEDS: METOCLOPRAMIDE 10 MG/2 ML INJ IV (00:05)
[2023-02-16] MEDS: chlordiazePOXIDE 25 MG CAPSULE PO ×3 (00:21→16:26)
[2023-02-16] MEDS: CALCIUM CARBONATE 500 MG TAB 1000 MG PO (00:21)
[2023-02-16] MEDS: HYDROMORPHONE 0.5 MG INJ IV ×5 (03:57→18:56)
[2023-02-16 04:00] VITALS: BP 118/75; PULSE 104; RESP 23; TEMP 37.2; O2SAT 95
[2023-02-16 04:49] LABS: INR 1.4 (0.9-1.3); Prothrombin Time 15.8 SECONDS (9.4-12.5)
[2023-02-16 04:55] LABS: Add Manual Diff / Slide Review NO; Alanine Aminotransferase 144 IU/L (<35); Albumin 2.8 g/dL (3.5-5.0); Albumin Globulin Ratio 0.8 (1.0-2.8); Alkaline Phosphatase 168 U/L (38-126); BUN Creatinine Ratio 11.5 (6-22); Basophils Absolute Auto 100 /uL (0-100); Bilirubin Total 9.6 mg/dL (0.2-1.3); Blood Urea Nitrogen 6 mg/dL (7-17); Calcium 8.5 mg/dL (8.4-10.2); Carbon Dioxide 25 mmol/L (22-32); Chloride 103 mmol/L (98-107); Eosinophils Absolute Auto 0 /uL (0-450); Eosinophils Percent Auto 0.8 % (2-4); Estimated Glomerular Filt Rate > 60 mL/min (>60); Globulin 3.3 g/dL (1.7-4.1); Glucose 123 mg/dL (70-100); Hematocrit 27.7 % (36-46); Hemoglobin 9.7 g/dL (12.0-16.0); Lymphocytes Absolute Auto 500 /uL (1100-4500); Lymphocytes Percent Auto 8.6 % (25-40); Mean Corpuscular HGB Conc 35.1 % (30-36); Mean Corpuscular Hemoglobin 34.9 PG (26-34); Mean Corpuscular Volume 99.4 fL (80-100); Monocytes Absolute Auto 1300 /uL (0-900); Monocytes Percent Auto 24.6 % (3-14); Neutrophils Absolute Auto 3500 /uL (1500-7000); Platelet Count 126 X10^3/uL (150-400); Potassium 3.4 mmol/L (3.4-5.1); Red Blood Cell Count 2.79 X10^6/uL (4.0-5.2); Red Cell Distribution Width 15.4 % (11.6-14.8); Sodium 134 mmol/L (137-145); Total Protein 6.1 g/dL (6.3-8.2); White Blood Cell Count 5.3 X10^3/uL (4.5-11.0)
[2023-02-16] MEDS: CEFEPIME 2 GM in SODIUM CHLORIDE 0.9% 100 ML IV ×2 (06:48→20:17)
[2023-02-16 08:17] VITALS: BP 124/77; PULSE 90; RESP 17; TEMP 36.9; O2SAT 97
[2023-02-16] MEDS: DOXYCYCLINE HYCLATE 100 MG TABLET PO ×2 (08:26→20:17)
[2023-02-16] MEDS: MULTIVITAMIN 1 TABLET 1 TAB PO (08:26)
[2023-02-16] MEDS: methylPREDNISolone 125 MG/2 ML VIAL 32 MG IV (08:26)
[2023-02-16] MEDS: POTASSIUM CHLORIDE 20 MEQ TAB 40 MEQ PO (08:26)
[2023-02-16] MEDS: FOLIC ACID 1 MG TABLET PO (08:26)
[2023-02-16] MEDS: PANTOPRAZOLE 40 MG VIAL IV ×2 (08:27→20:18)
[2023-02-16] MEDS: ACETAMINOPHEN 325 MG TABLET PO (08:27)
[2023-02-16] MEDS: SODIUM CHLORIDE 0.9% FLUSH 10 ML IV ×2 (08:27→20:32)
--- NOTE | 2023-02-16 10:33 | PT.IIE ---
Current Diagnoses Thrombocytopenia, unspecified (02/12/23) Hypokalemia (02/12/23) Alcohol use, unspecified with withdrawal, unspecified (02/12/23) Alcoholic hepatitis without ascites (02/12/23) Medical History (Last Reviewed 02/12/23 @ 07:27 by Rhoda Jacobson MD) Alcohol use disorder [place] disease History of arteriovenous malformation (AVM) Physical Therapy Inpatient Evaluation/Re-Eval M1 PT/OT-IP Prior Functional Status Start: 02/16/23 08:09 Freq: NEEDED Status: Active Protocol: Document 02/16/23 10:06 MB (Rec: 02/16/23 10:33 MB [id number]) Medical Review Prior Functional Status Medical History Reviewed Yes Diet/Fluid Consistency Regular Communication Unsure baseline diet and communication, likely both normal Mobility and Gait Pt is unclear: states that she has a cane and uses it. 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 Pt reports there are no steps to enter or inside home Home Equipment Straight Cane Employment Status Self-Employed Additional Social History Comment nor pt offer more information about baseline and home set-up M2 PT-IP Current Condition Start: 02/16/23 08:09 Freq: NEEDED Status: Active Protocol: Document 02/16/23 10:06 MB (Rec: 02/16/23 10:33 MB [id number]) Physical Therapy Current Condition Current Condition Evaluation Date 02/16/23 Treatment Diagnosis ETOH abuse, fall M3 PT-IP Subjective Start: 02/16/23 08:09 Freq: NEEDED Status: Active Protocol: Document 02/16/23 10:06 MB (Rec: 02/16/23 10:33 MB [id number]) Subjective Physical Therapy Visit Type Type Initial Evaluation Visit Start Time 10:06 Visit Stop Time 10:23 Total Visit Minutes 17 Number of ENGINEERING GROUP MANAGER Visits 0 Physical Therapy Visit Comments Patient Comments I can't have anything touching my back. When PT asks pt if she would like the HOB increased. She appears uncomfortable in bed and sits up and crosses her legs. Therapy Pain Assessment Pain When Pain Assessed At Rest Pain Present Pain Present Pain Reported Location Bilateral Back Intensity 8 Scale Used HartPinedaCevallos (Faces) Description Aching Pain Behaviors Facial Grimacing,Guarding Pain Management Techniques Re-positioning M4 PT-IP Mobility and Gait Start: 02/16/23 08:09 Freq: NEEDED Status: Active Protocol: Document 02/16/23 10:06 MB (Rec: 02/16/23 10:33 MB [id number]) PT-Bed Mobility Assessment Supine to Sit Supine to Sit Standby Assistance,1 Person Assistance,Head of Bed Elevated,Bedrails Sit to Supine Sit to Supine Standby Assistance,1 Person Assistance,Head of Bed Elevated,Bedrails Scooting Scooting to Edge of Bed Standby Assistance Scooting Up and Down in Bed Standby Assistance PT-Transfer Assessment Sit to and From Stand Sit to and from Stand Contact Guard Assistance,1 Person Assistance,Use of Upper Extremities Equipment Transfer Assistive Device Gait Belt,Front Wheeled Walker Orthotic/Prosthetic Devices or Brace: No Transfer Ability Level of Assist Contact Guard Assistance,1 Person Assistance,Use of Upper Extremities Comments Mobility Comments Pt requires cues for hand placement and she moves very slowly Gait Assessment Gait Gait Assistance Required: Contact Guard Assist,Minimum Assistance,1 Person Assist Distance (Feet) 5 Able to Maintain Weight Bearing Status Yes During Gait Assistive Devices Assistive Device Gait Belt,Front Wheeled Walker Gait Deviations General Gait Pattern Antalgic,Decreased Feet Clearance,Step-to Gait,Wide Based Gait Factors Limiting Gait Function Factors Limiting Gait Function Decreased Activity Tolerance, Difficulty Following Directions,Pain,Poor Balance, Poor Safety Awareness Comments Gait Comments Pt takes several right sidesteps and then steps forward many steps and backwards many steps with RW: CGA for forward stepping and min A for backwards stepping d /t imbalance and trouble clearing feet: wide ANANYA PT-Balance Assessment Sitting Balance and Reactions Static Sitting Balance Ability Fair Dynamic Sitting Balance Ability Fair Standing Balance and Reactions Static Standing Balance Ability Poor Dynamic Standing Balance Ability Poor Device Used RW M5 PT-IP Objective Assessments Start: 02/16/23 08:09 Freq: NEEDED Status: Active Protocol: Document 02/16/23 10:06 MB (Rec: 02/16/23 10:33 MB [id number]) Orientation Orientation/Cognition Level of Alertness Confusional State Orientation Name,Age,Place Safety Awareness Decreased Safety Awareness Memory Description Short Term Impaired,Beet Flumer Impaired Comments Pt is hypoverbal and soft spoken and does not answer many questions Gross Range of Motion Upper Extremity ROM Assessment Within Functional Limits Lower Extremity ROM Assessment Within Functional Limits Strength Comments Strength Comments Pt does not tolerate MMT Coordination Assessment Assessment Coordination Comments Pt does not tolerate coordination or sensory testing M7 PT-IP Assessment and Plan Start: 02/16/23 08:09 Freq: NEEDED Status: Active Protocol: Document 02/16/23 10:06 MB (Rec: 02/16/23 10:33 MB [id number]) PT Summary Assessment and Plan Potential Rehabilitation Potential Fair Status of Condition at Evaluation Evolving Summary Impairments Pain,Balance,Cognition,Bed Mobility,Transfers,Gait, Activity Tolerance Progress Towards Goals Slow Progress due to Pain,Slow Progress due to Medical Issues,Slow Progress due to Activity Tolerance Assessment Summary Pt is a 47 y/o female presenting with back pain posteriorly and some left anterior pain, hypoverbality, slow movement, decreased safety awareness, decreased balance and jaudice in setting of ETOH abuse, fall and hospitalization. PT notes bruise right posterior rib area. She has slow mobility in bed, to EOB, with transfer and with short stepping. She requires CGA to min A with RW for mobility. does not provide any baseline information for PT. Recommend ongoing assistance and PT in the acute and post-acute settings. Goals Bed Mobility Goal Independent Transfer Goal Independent,Front Wheeled Walker Gait Goal Independent,Front Wheel Walker Gait Distance 100 Other Goals Progress to LRAD as appropriate Frequency of Treatment Frequency Of Treatment Once a Day Treatment Plan Physical Therapy Treatment Plan Bed Mobility Training,Transfer Training,Gait Training, Therapeutic Exercise,Balance Retraining,Discharge Planning Weight Bearing Status Weight Bearing Status Weight Bear as Tolerated Recommendations To Nursing Amount of Assist Needed 1 Person Assist Discharge Recommendations Other Discharge Recommendations Defer to MD and SW about possible rehab for ETOH at d/c . Pt lives with who also has impairment/possible ETOH unsure that he is able to assist pt at d/c. Recommend 24 hour superv and PT at d/c. Transportation Needs at Discharge Private Vehicle
[2023-02-16 12:00] VITALS: BP 140/70; PULSE 90; RESP 17; TEMP 37; O2SAT 96
--- NOTE | 2023-02-16 12:18 | P.PN_ITS ---
Subjective Subjective Interval history: She is feeling better today. She is more hungry and was able to walk several steps with physical therapy. She does know she is in the hospital and [facility]. She denies any abdominal pain. Exam Vital Signs (past 8 hours): - 02/16/23 08:17 Temperature 98.4 F Pulse Rate 90 Respiratory Rate 17 Blood Pressure 124/77 Pulse Oximetry 97 Oxygen Flow Rate 0 Oxygen Delivery Method Room Air Oxygen Flow Rate 0 Narrative Exam Narrative: Oriented to place, time and self Lungs are clear with normal effort Heart regular and without murmur Abdomen is mildy distended and non-tender. No leg edema or rash. No tremor. Objective Labs 02/16/23 04:03 02/16/23 04:03 Labs: Laboratory Results - last 24 hr 02/16/23 04:03 WBC 5.3 RBC 2.79 L Hgb 9.7 L Hct 27.7 L MCV 99.4 MCH 34.9 H MCHC 35.1 RDW 15.4 H Plt Count 126 L Neut % (Auto) 65.0 Lymph % (Auto) 8.6 L [place] % (Auto) 24.6 H Eos % (Auto) 0.8 L Baso % (Auto) 1.0 Neut # (Auto) 3500 Lymph # (Auto) 500 L [place] # (Auto) 1300 H Eos # (Auto) 0 Baso # (Auto) 100 PT 15.8 H INR 1.4 H Sodium 134 L Potassium 3.4 Chloride 103 Carbon Dioxide 25 BUN 6 L Creatinine 0.52 Estimated GFR > 60 BUN/Creatinine Ratio 11.5 Glucose 123 H Calcium 8.5 Total Bilirubin 9.6 H AST TNP ALT 144 H Alkaline Phosphatase 168 H Total Protein 6.1 L Albumin 2.8 L Globulin 3.3 Albumin/Globulin Ratio 0.8 L [facility] Medical History History of arteriovenous malformation (AVM) Alcohol use disorder [place] disease Social History household members: spouse Smoking Status: Current every day smoker alcohol intake: current Assessment & Plan Assessment & Plan narrative: 1. Sepsis from pneumonia and UTI. POA and improving. -temp of 102.2F and tachycardia on 02/14, no leukocytosis -CXR with LLL consolidation vs atelectasis, UA with pyuria and growing E. coli -cefepime and doxy (5 days course). Antibiotics completed, the patient has negative blood cultures. 2. Acute severe alcoholic hepatitis, POA and improving. -Initial T-bili 16, AST 475, ALT 149, INR 1.5 -Maddrey's score of 37.5 -MELD 29 -liver US with only fatty infiltration -started IV solumedrol 32mg x28 days -monitor LFT's and INR -patient has history of Gilbert's which may be contributing to hyperbilirubinemia Her liver functions are improving, bilirubin is under 10 today. 3. Acute pancreatitis, POA and improving. -patient have abdomen pain and lipase 4000, initial CT didn't note pancreatic inflammation but repeat does -repeat CT ordered -trend lipase -advance diet. She is having no abdominal pain or nausea. 4. Hypokalemia and Hypomagnesemia, new and active. -replete and follow. 5. Acute alcohol withdrawal, POA and improved. -patient's last drink was 24 hours ago, etoh 77 -patient initially noticably withdrawing on exam -monitored CIWA, valium PRN due to ativan shortage. 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 Will bring Librium down to 0 over the next 2 days. 6. Presyncope and fall, .POA and improving. Ataxic. -patient notes she blacked out when standing up, then fell and hit her head and back -likely was orthostatic from hypovolemia Continue physical therapy, her gait was more stable today. 7. Thrombocytopenia, POA and improving. -platelets 46 on admission -likely due to alcoholism and liver damage -avoid blood thinners -monitor daily CBC. 8. Tobacco dependence, POA. -nicotine patch if patient requests Code status is full code. DVT prophylaxis with SCDs. Proxy is spouse Lubna. Dispo: Pending improvement in alcoholic hepatitis and pancreatitis. Several days. Quality VTE Deep Vein Thrombosis/Pulmonary Embolism Present on Admission: No
[2023-02-16] MEDS: polyethylene glycoL 3350 17 GM POWD.PACK PO (12:44)
--- NOTE | 2023-02-16 15:16 | CM.DPNOTE ---
DCP Note WAITER/WAITRESS ROOM SERVICE reviewed EMR. Per previous CM note, pt and spouse are interested in MH OP resources. WAITER/WAITRESS ROOM SERVICE printed off list of [facility] therapist, all [facility] therapist, and other MH centers in area and gave them to spouse and pt. Pt sitting up in bed and shaking/was dry heaving throughout interaction. Pt reports interested in PCP information- WAITER/WAITRESS ROOM SERVICE printed off list of PCPs accepting new pt's in area. Pt appreciative. Pt not too talkative throughout interaction. Spouse interested in HH PT services for pt- unclear if pt would qualify at this time. Plan: CM/SW team will continue to follow closely. Likely home with spouse and OP MH support. Consider HH if appropriate. BRYANT Yanes
[2023-02-16 16:00] VITALS: BP 150/90; PULSE 88; RESP 17; TEMP 36.9; O2SAT 97
--- NOTE | 2023-02-16 17:29 | DIET.CONS ---
Dietary Consultation Note Admission Date: 02/12/2023 11:26 Assessment: 47F admitted with abd pain, NV, fall at home and in ETOH withdrawals. RD consulted for alcoholism. No recent weight loss in wt hx. Reports adequate Po intake, with exception of 2 days of NV prior to admission. States appetite is improving. Pt is eating dinner slowly during this assessment. States she takes supplements at home, including vit D, MVI, and herbal supplements. Reports she eats a lot of red meat. Had salmon for the first time this past summer and liked it. Hgb 9.7 L, Hct 27.7L, MCH 34.9H, Na 134L, AST 144 H, ALT 168H, TG 179H Ht: 157.48 cm Wt: 63 kg BMI: 21.0 Last BM: 02/12/23 (02/12/23 13:26) MNA: 10 Luis Score: 21 Diet: 02/14/23 Dinner General (Regular) Diet Diet Modifications: no chicken Food Texture: Level 7 - Regular Liquid Consistency: Level 0 - Thin Nutrition Percent Meal Consumed 75% 02/16/23 12:29 Percent Meal Consumed 50% 02/15/23 20:00 Percent Meal Consumed pt refused dinner 02/15/23 18:15 Percent Meal Consumed 50% 02/15/23 13:13 Percent Meal Consumed 25% 02/14/23 17:46 Labs: RBC 2.79 X10^6/uL (4.0-5.2) L 02/16/23 04:03 Hgb 9.7 g/dL (12.0-16.0) L 02/16/23 04:03 Hct 27.7 % (36-46) L 02/16/23 04:03 Creatinine 0.52 mg/dL (0.52-1.04) 02/16/23 04:03 Lactate 1.5 mmol/L (0.7-2.1) 02/12/23 11:50 Nutrition Diagnosis: Excessive ETOH intake r/t stage of change aeb documented ETOH withdrawals and Ethyl Alcohol level of 77H upon admission. Interventions: Reviewed nutrition for overall and liver health. Discussed importance of fiber, lean proteins and healthy fats. Also discussed how nutrients may be depleted with excessive ETOH intake. Monitoring/Evaluations: consult prn Electronically Signed by: Nelly Lopez 02/16/23 17:29 Clinical Dietitian [address] [address]
[2023-02-16 20:00] VITALS: BP 117/80; PULSE 77; RESP 16; TEMP 36.8; O2SAT 98
[2023-02-17] VITALS: BP 129/71; PULSE 96; RESP 18; TEMP 37.1; O2SAT 100
--- NOTE | 2023-02-17 00:09 | PC.NURSE ---
Addendum entered by Vale Gan R.N. 02/17/23 06:26: 0550- Patient left hospital AMA. talked with patient about reason to stay, patient would listen and keep repeating No, i wanna go, I wanna go home. [email or web address] called to pick her up. Attemptedd to reach hospitalist, unable to reach in time. IV lines removed. AMA paperwork signed by patient and . patient left AMA at 0550 with all personal; belongings. Original Note: NOC Shift Note- Patients bed alarm heard alarming at 2220. Patient found sitting on floor beside bed. Patient states dropped by pen, I just wanted to pick it up. I got outta bed,turned around and sat don on floor. Im not hurt. Patient helped to her feet and back to bed. no new bruises noted. Patient continues to to deny any injury at this time. discussed with patient reason to call for assistance and not get up without assistancr.
[2023-02-17] MEDS: chlordiazePOXIDE 25 MG CAPSULE PO (01:25)
[2023-02-17] MEDS: ACETAMINOPHEN 325 MG TABLET PO (01:32)
[2023-02-17 04:00] VITALS: BP 129/71; PULSE 96; RESP 18; TEMP 37.1; O2SAT 100
[2023-02-17 04:54] LABS: INR 1.4 (0.9-1.3); Prothrombin Time 16.3 SECONDS (9.4-12.5)
[2023-02-17 05:15] LABS: Hematocrit 26.9 % (36-46); Hemoglobin 9.4 g/dL (12.0-16.0); Mean Corpuscular Hemoglobin 35.2 PG (26-34); Mean Corpuscular Volume 100.6 fL (80-100); Platelet Count 175 X10^3/uL (150-400); Red Blood Cell Count 2.67 X10^6/uL (4.0-5.2); Red Cell Distribution Width 15.4 % (11.6-14.8); White Blood Cell Count 4.7 X10^3/uL (4.5-11.0)
[2023-02-17 05:22] LABS: Add Manual Diff / Slide Review YES
[2023-02-17 05:30] LABS: Chloride 102 mmol/L (98-107); Potassium 3.4 mmol/L (3.4-5.1); Sodium 132 mmol/L (137-145)
[2023-02-17 05:31] LABS: Alanine Aminotransferase 145 IU/L (<35); Albumin 2.7 g/dL (3.5-5.0); Albumin Globulin Ratio 0.8 (1.0-2.8); Alkaline Phosphatase 226 U/L (38-126); BUN Creatinine Ratio 13.7 (6-22); Bilirubin Total 9.1 mg/dL (0.2-1.3); Blood Urea Nitrogen 7 mg/dL (7-17); Calcium 8.7 mg/dL (8.4-10.2); Carbon Dioxide 23 mmol/L (22-32); Estimated Glomerular Filt Rate > 60 mL/min (>60); Globulin 3.3 g/dL (1.7-4.1); Glucose 134 mg/dL (70-100)
[2023-02-17 06:04] LABS: Neutrophils Absolute Manual 3055 /uL (3000-5900); Target Cells 1+; Total Cells Counted 100
[2023-02-17 08:15] LABS: HEMOLYSIS < 15 (0-50)
--- NOTE | 2023-02-17 12:16 | PM.DS.1 ---
History of Present Illness History of Present Illness Chief complaint: hard time breathing x 2 days, vomiting Narrative: Yanet Vega is a 47yo F with PMH of AVM causing stroke, alcohol dependence, and Gilbert's disease who presents with abd pain, NV, fall at home and in alcohol withdrawals. Patient states she developed acute NV 2 days ago after not drinking alcohol for 48 hours. She could barely keep down gatorade or water. Hasn't eaten or slept much in 3 days. Yesterday she stood up and her vision went black and she saw meraz stars then passed out and hit her head and back on a counter. She immediately came to and has been in alot of pain in her back since. She also notes diffuse abd pain. She says she only drinks 1 glass of wine or 1 tariq daily, but that she used to drink much more heavily when I was younger. Denies CP, hematemesis, diarrhea, LE swelling, or visual changes. Discharge Providers Provider Date of admission: 02/12/23 11:26 Discharge Date: 02/17/23 Primary care physician: None local, recently moved to [facility]. Consults: 02/12/23 11:32 Consult to Dietitian, Adult Routine Comment: Reason For Exam: alcoholism 02/12/23 11:37 Consult to PHYSICIAN OBSTETRICIAN - Ophthalmology Technician Routine Comment: alcoholism 02/12/23 11:59 Consult to Tele-slime plant operator helper Routine Comment: Consulting Provider: Beth [employer]intensivists Reason for consultation: [employer] services 02/15/23 13:07 Consult to Physical Therapy Evaluate & Treat Comment: Physician Instructions: Evaluate and Treat Discharge provider: Eliezer Hudson MD Summary Hospital Course Discharge Diagnosis: PATIENT LEFT EARLY AM 02/17 AGAINST MEDICAL ADVICE. WAS NOT SEEN BY DAY PHYSICIAN. OTHER DIAGNOSES: 1. Sepsis from pneumonia and UTI. POA and improving. -temp of 102.2F and tachycardia on 02/14, no leukocytosis -CXR with LLL consolidation vs atelectasis, UA with pyuria and growing E. coli -cefepime and doxy (5 days course). Antibiotics completed, the patient has negative blood cultures. 2. Acute severe alcoholic hepatitis, POA and improving. -Initial T-bili 16, AST 475, ALT 149, INR 1.5 -Maddrey's score of 37.5 -MELD 29 -liver US with only fatty infiltration -started IV solumedrol 32mg (PLAN FOR 28 day).s -monitor LFT's and INR -patient has history of Gilbert's which may be contributing to hyperbilirubinemia Her liver functions are improving, bilirubin is under 10 today. 3. Acute pancreatitis, POA and improving. -patient have abdomen pain and lipase 4000, initial CT didn't note pancreatic inflammation but repeat does -repeat CT ordered -trend lipase -advance diet. She was having no abdominal pain or nausea. 4. Hypokalemia and Hypomagnesemia, new and active. -replete and follow. 5. Acute alcohol withdrawal, POA and improved. -patient's last drink was 24 hours ago, etoh 77 -patient initially noticably withdrawing on exam -monitored CIWA, valium PRN due to ativan shortage. -phenobarb given in ED -librium 50mg q6h -precedex drip was weaned off -zofran PRN for NV -PHYSICIAN OBSTETRICIAN for alcohol use disorder -weaned Librium. 6. Presyncope and fall, .POA and improving. Ataxic. -patient notes she blacked out when standing up, then fell and hit her head and back -likely was orthostatic from hypovolemia 7. Thrombocytopenia, POA and improving. -platelets 46 on admission -likely due to alcoholism and liver damage -avoid blood thinners -monitor daily CBC. 8. Tobacco dependence, POA. -nicotine patch if patient requests Code status is full code. DVT prophylaxis with SCDs. Proxy is spouse [place]. Hospital Course: The patient was admitted for fall, alcohol withdrawal, as well as severe alcohol-induced liver dysfunction with pancreatitis and hepatitis. The patient was treated with IV corticosteroids in the CIWA protocol. She was initially treated for with a suspected source of pneumonia. The patient clinically improved and was able to start eating on February 15. The patient's laboratories were all improving. She did have a profound pancytopenia from a combination of sepsis and alcohol use disorder. The patient was able to walk with improved gait on February 16 and her bilirubin had decreased from over 22 under 10. She was also much less confused over the last 2 days of her admission. Her spent much of the day with her at her bedside throughout her stay. She completed 5 days of antibiotics. Her initial electrolyte abnormalities were corrected with repletion and her Librium was being weaned down actively. Early in the morning of February 17 she left the hospital against medical advice with her . Status at Discharge Cognitive/behavioral status at discharge: oriented Functional status at discharge: independent ambulation Overall status at discharge: patient is not back to baseline Time Spent with Patient Time spent: Less than 30 minutes Exam Vital Signs (past 8 hours): Oxygen Delivery Method Room Air Oxygen Flow Rate 0 Narrative Exam Narrative: Patient was not examined, she left Against Medical Advice prior to the day hospitalist arrival at 7:00 a.m.. Objective Imaging Chest x-ray: Radiologist's impression: Left pleural effusion with new left basilar atelectasis or consolidation. CT scan - abdomen: Radiologist's impression: Acute interstitial pancreatitis. Hepatomegaly and severe steatosis. The combination of the above findings warrant GI follow-up. Bvpt-xu-[id number] ascites and pleural effusions. Diffuse anasarca. Nonspecific fat stranding/inflammation in the retroperitoneum. A small amount of layering hyperdensity is seen in the deep pelvis, which could indicate a small amount of hemorrhage or debris. Most of the ascites however is simple. Bibasilar pulmonary opacities, likely atelectasis versus additional airspace disease. Labs 02/17/23 04:36 02/17/23 04:36 Labs: Laboratory Results - last 24 hr 02/17/23 04:36 WBC 4.7 RBC 2.67 L Hgb 9.4 L Hct 26.9 L MCV 100.6 H MCH 35.2 H MCHC 35.0 RDW 15.4 H Plt Count 175 Neut % (Auto) Not Reportable Lymph % (Auto) Not Reportable [place] % (Auto) Not Reportable Eos % (Auto) Not Reportable Baso % (Auto) Not Reportable Lymph # (Auto) Not Reportable [place] # (Auto) Not Reportable Baso # (Auto) Not Reportable Total Counted 100 Seg Neutrophils % 65.0 Lymphocytes % (Manual) 12.0 L Atypical Lymphs % 1.0 H Monocytes % (Manual) 20.0 H Eosinophils % (Manual) 2.0 Neutrophils # (Manual) 3055 RBC Morphology See below Target Cells 1+ H PT 16.3 H INR 1.4 H Sodium 132 L Potassium 3.4 Chloride 102 Carbon Dioxide 23 BUN 7 Creatinine 0.51 L Estimated GFR > 60 BUN/Creatinine Ratio 13.7 Glucose 134 H Calcium 8.7 Total Bilirubin 9.1 H AST TNP ALT 145 H Alkaline Phosphatase 226 H Total Protein 6.0 L Albumin 2.7 L Globulin 3.3 Albumin/Globulin Ratio 0.8 L [facility] Medical History History of arteriovenous malformation (AVM) Alcohol use disorder [place] disease Social History household members: spouse Smoking Status: Current every day smoker alcohol intake: current Discharge Assessment & Plan Assessment and Plan Assessment: 1. Against medical advice discharge. The patient is at high risk for adverse outcomes of her pancreatitis, pancytopenia, and severe liver dysfunction as well as her potential for using alcohol. 2. Sepsis with a source of pneumonia, improved. 3. Alcohol-induced hepatitis, active. 4. Alcohol-induced pancreatitis, improving. 5. Hypokalemia and hypomagnesemia. 6. Pancytopenia, active. 7. Tobacco dependence, active. 8. Alcohol use disorder, active. Plan of Treatment: The patient left against medical advice and has no formal post discharge plan as she did not meet with physician prior to leaving the hospital. Discharge Plan Discharge Plan Patient Disposition: Left Against Medical Advice Discharge orders & Medications Prescriptions: Continued ondansetron 4 mg tablet,disintegrating 4 mg PO Q8H PRN (Reason: nausea and vomiting) Qty: 10 0RF Follow up/Referrals: Miscellaneous,DoctorMD [Non-Staff] - Visit Report/Discharge Packet Stand Alone Forms: Patient Portal/API Quality VTE Deep Vein Thrombosis/Pulmonary Embolism Present on Admission: No MIPS - DC The patient has a history of heart transplant or Left Ventricular Assist Device (LVAD). If yes, STOP here.: No The patient has current or prior documentation of left ventricular ejection fraction (LVEF) less than or equal to 40%, or moderate or severely depressed left ventricular systolic function.: No
[2023-02-19 14:47] LABS: HEMOLYSIS 16 (0-50)
[2023-02-19 14:48] LABS: Aspartate Aminotransferase 224 IU/L (14-36)
[2023-02-19 16:18] LABS: Aspartate Aminotransferase 232 IU/L (14-36)
== END 2023-02-17 05:50 | disposition left against medical advice (07) | DRG 871 ==
LOC: ED 07:16 → ICU 12:22 → AC 02-16 09:08
PROVIDERS: Emergency Medicine; Internal Medicine; Admitting Provider Student in an Organized Health Care Education/Training Program; Emergency Provider Emergency Medicine; Referring Provider Emergency Medicine; Visit Provider Student in an Organized Health Care Education/Training Program
DX: A41.9 Sepsis, unspecified organism (principal); J18.9 Pneumonia, unspecified organism; K85.20 Alcohol induced acute pancreatitis without necrosis or infection; E87.1 Hypo-osmolality and hyponatremia; F10.239 Alcohol dependence with withdrawal, unspecified; N39.0 Urinary tract infection, site not specified; D61.818 Other pancytopenia; K70.10 Alcoholic hepatitis without ascites; R55 Syncope and collapse; E87.6 Hypokalemia; E83.42 Hypomagnesemia; R51.9 Headache, unspecified; M54.2 Cervicalgia; B96.20 Unspecified Escherichia coli [E. coli] as the cause of diseases classified elsewhere; Y90.3 Blood alcohol level of 60-79 mg/100 ml; Z53.21 Procedure and treatment not carried out due to patient leaving prior to being seen by health care provider
CPT/HCPCS: 36415; 70450; 71045; 71260; 72125; 74177; 76705; 80048; 80053; 80061; 80074; 80076; 80320; 80329; 81003; 81015; 82140; 82550; 83605; 83690; 83735; 84443; 84484; 84703; 85007; 85025; 85027; 85610; 85730; 86850; 86900; 86901; 87040; 87077; 87086; 87186; 87633; 87797; 93005; 96365; 96375; 97161; 99284; C9113; G0480; J0692; J1170; J2060; J2405; J2560; J2765; J2930; J3475; Q9967

== ENCOUNTER 2023-02-22 10:52 | Emergency (ER) | payer OTHER, MEDICAID, SELFPAY ==
[2023-02-12 13:26] VITALS: BMI 21.0
[2023-02-22 10:57] VITALS: BP 141/86; PULSE 84; RESP 14; TEMP 37.1; O2SAT 99; BMI 21.0
--- NOTE | 2023-02-22 11:05 | DI.RAD.S_ITS ---
PROCEDURE: XR RIBS LT MIN 3V W CXR1V INDICATIONS: fall,rib pain TECHNIQUE: 2 views of the ribs were acquired, along with a single view chest. COMPARISON: None. FINDINGS: Surgical changes and devices: None. Bones and chest wall: No fractures or dislocations. No suspicious bony lesions. Overlying soft tissues appear unremarkable. Lungs and pleura: No pleural effusions or pneumothorax. Lungs appear clear. Mediastinum: Mediastinal contours appear normal. Heart size is normal. IMPRESSION: No acute process. No acute fracture. No osseous lesion. If symptoms and/or clinical suspicion for pathology persist, further assessment with repeat, or advanced imaging (e.g., CT, MRI, or bone scan) may be helpful for further assessment. Dictated by: Ismael Hunt M.D. on 02/22/2023 at 11:44 Approved by: Ismael Hunt M.D. on 02/22/2023 at 11:44
[2023-02-22 12:00] VITALS: BP 137/81; PULSE 81; RESP 20; O2SAT 100
--- NOTE | 2023-02-22 12:04 | PC.NURSE ---
patient's lung sounds are clear bilaterally. She reports shortness of breathe. Her 02 saturation is 100% on RA.
--- NOTE | 2023-02-22 12:13 | ED.FALL ---
HPI - Fall <ROSALIE Slaughter - Last Filed: 02/22/23 12:27> General Chief Complaint: Fall Stated Complaint: severe abd pain fell this morning rib sticking out Time Seen by Provider: 02/22/23 11:39 Mode of arrival: Wheelchair History of Present Illness HPI Narrative: 47-year-old female, with history of alcoholic hepatitis and Gilbert's disease, presents to the emergency department with left-sided rib pain after falling earlier today. Patient states that she missed a step and fell forward hitting the left side of her rib. Related Data Previous Rx's Medication Instructions Recorded ondansetron 4 mg disintegrating 4 mg PO Q8H PRN nausea and 12/28/22 tablet vomiting #10 tabs Allergies Allergy/AdvReac Type Severity Reaction Status Date / Time codeine Allergy Verified 02/22/23 10:57 morphine Allergy Verified 02/22/23 10:57 Penicillins Allergy Verified 02/22/23 10:57 Review of Systems <ROSALIE Slaughter - Last Filed: 02/22/23 12:27> Review of Systems Narrative: Narrative: See HPI. GENERAL: Denies chills, fatigue, fever, sweats. RESPIRATORY: Denies dyspnea, cough, wheezing, sputum. CARDIOVASCULAR: Denies chest pain, palpitations, edema. GASTROINTESTINAL: Denies nausea, vomiting, abdominal pain, diarrhea, constipation. : Denies dysuria, frequency, incontinence, hematuria, urinary retention, flank pain. MSK: Denies weakness. Endorses left-sided rib pain. SKIN: Denies rash, skin lesions, or pruritis. NEUROLOGIC: Denies weakness, dizziness, headache, numbness, confusion. Patient History <ROSALIE Slaughter - Last Filed: 02/22/23 12:27> Medical History History of arteriovenous malformation (AVM) Alcohol use disorder [place] disease Social History household members: spouse Smoking Status: Unknown if ever smoked alcohol intake: current Smoking Status: Unknown if ever smoked alcohol intake frequency: 3 or more drinks per day Substance Use Type: marijuana and crack/cocaine Exam <ROSALIE Slaughter - Last Filed: 02/22/23 12:27> Narrative Exam Narrative: Exam Narrative: GENERAL: This is a well-nourished, well-developed patient, in no acute distress. HEAD: Atraumatic. Normocephalic. EYES: Pupils equal round and reactive. Scleral yellowing secondary to Gilbert's disease. ENT: Nose without bleeding, purulent drainage. Airway patent. NECK: Trachea midline. CARDIOVASCULAR: Regular rate and rhythm without murmurs, peripheral pulses intact, cap refill <2 sec. RESPIRATORY: Breath sounds equal and clear bilaterally. No wheezes, rales, or rhonchi. No cough. No increased respiratory effort. No accessory muscle use. MSK: Moves all extremities. Normal range of motion, no clubbing or edema. Neurovascularly intact. NEURO: A&O x 3. SKIN: Warm, dry, no rashes or lesions noted. Initial Vital Signs Initial Vital Signs: Vital Signs Temperature 98.8 F 02/22/23 10:57 Pulse Rate 84 02/22/23 10:57 Respiratory Rate 14 02/22/23 10:57 Blood Pressure 141/86 H 02/22/23 10:57 Pulse Oximetry 99 02/22/23 10:57 Oxygen Delivery Method Room Air 02/22/23 10:57 Reviewed <Joaquin Du MD - Last Filed: 02/23/23 18:20> Initial Vital Signs Initial Vital Signs: Vital Signs Temperature 98.8 F 02/22/23 10:57 Pulse Rate 84 02/22/23 10:57 Respiratory Rate 14 02/22/23 10:57 Blood Pressure 141/86 H 02/22/23 10:57 Pulse Oximetry 99 02/22/23 10:57 Oxygen Delivery Method Room Air 02/22/23 10:57 Course <ROSALIE Slaughter - Last Filed: 02/22/23 12:27> Orders Ordered: ED Orders 02/22/23 11:05 XR ribs LT min 3V w CXR1V Stat Vital Signs Vital signs: Vital Signs - 8 hr 02/22/23 10:57 02/22/23 12:00 Temperature 98.8 F Pulse Rate 84 81 Respiratory Rate 14 20 Blood Pressure 141/86 H 137/81 Pulse Oximetry 99 100 Oxygen Delivery Method Room Air Room Air <Joaquin Du MD - Last Filed: 02/23/23 18:20> Orders Ordered: ED Orders 02/22/23 11:05 XR ribs LT min 3V w CXR1V Stat Vital Signs Vital signs: Vital Signs - 8 hr 02/22/23 10:57 02/22/23 12:00 Temperature 98.8 F Pulse Rate 84 81 Respiratory Rate 14 20 Blood Pressure 141/86 H 137/81 Pulse Oximetry 99 100 Oxygen Delivery Method Room Air Room Air MDM - Fall <KRYSTEN SlaughterP - Last Filed: 02/22/23 12:27> Differential Diagnosis Differential diagnosis: Likely other (Rib fracture, rib contusion) Imaging Data Chest x-ray: Radiologist's Impression: [address] [address] XRay Report Signed Patient: Yanet Ruffin MR#: [id number] : 1975 Acct:[id number] Age/Sex: 47 / F Date of Service: 02/22/23 Loc: ED Accession Number: [id number] Procedure: XR ribs LT min 3V w CXR1V Ordering Provider: Joaquin Du MD PROCEDURE: XR RIBS LT MIN 3V W CXR1V INDICATIONS: fall,rib pain TECHNIQUE: 2 views of the ribs were acquired, along with a single view chest. COMPARISON: None. FINDINGS: Surgical changes and devices: None. Bones and chest wall: No fractures or dislocations. No suspicious bony lesions. Overlying soft tissues appear unremarkable. Lungs and pleura: No pleural effusions or pneumothorax. Lungs appear clear. Mediastinum: Mediastinal contours appear normal. Heart size is normal. IMPRESSION: No acute process. No acute fracture. No osseous lesion. If symptoms and/or clinical suspicion for pathology persist, further assessment with repeat, or advanced imaging (e.g., CT, MRI, or bone scan) may be helpful for further assessment. Dictated by: Ismael Hunt M.D. on 02/22/2023 at 11:44 Approved by: Ismael Hunt M.D. on 02/22/2023 at 11:44 [facility] Narrative Medical decision making narrative: 47-year-old female with left-sided rib pain status post fall earlier today. Assessment was consistent with reported mechanism of injury. Chest x-ray was normal. Discussed supportive care measures with patient to include rest, splinting, hot or cold compresses to the affected site and oroa-jcs-ddsneio medications as needed for comfort. Instructed patient to return to the emergency department for worsening symptoms. Patient verbalized understanding and was agreeable with course of action. <Joaquin Du MD - Last Filed: 02/23/23 18:20> [facility] Narrative Medical decision making narrative: 47-year-old female with left-sided rib pain status post fall earlier today. Assessment was consistent with reported mechanism of injury. Chest x-ray was normal. Discussed supportive care measures with patient to include rest, splinting, hot or cold compresses to the affected site and vwcz-dml-[id number] medications as needed for comfort. Instructed patient to return to the emergency department for worsening symptoms. Patient verbalized understanding and was agreeable with course of action. I was immediately available in the department for consultation. Documentation has been reviewed. I agree with assessment and plan. Discharge Plan Departure Patient Disposition: Home Clinical Impression: Rib injury Instructions: How to Prevent Falls Activity Restrictions/Additional Instructions: *You have been diagnosed with a left rib injury. My assessment was encouraging and your chest x-ray revealed no broken bones or other anomalies. As we discussed, please get plenty of rest until your symptoms improve. Supportive care measures would include hot or cold compresses to the affected site, splinting before coughing or sneezing and avoidance of any activities that exacerbate your pain. Please feel free to return to the emergency department or walk-in clinic as needed. *What to do: *Please continue to take your regular medications as directed. [ ] New medication prescriptions sent to your pharmacy: [ ] [ ] New medication written as a paper prescription [x ] No new medications given *Please follow up with your primary care provider in 2-3 days, call for an appointment. Let them know you were seen in the Emergency Department and that we ask that you be seen in follow up. We will electronically transmit a record of today's note if your PCP is in our system *If you do not have a primary care provider please contact the [facility] Resource line at [phone]. They will ask some questions about your medical history and help get you set up with a doctor in the community. ? Return to ER if you should have any new, worsening or concerning symptoms, such as worsening pain, severe headache, confusion, chest pain, difficulty breathing, fever greater than 101 F, shaking chills, persistent vomiting to the point that you cannot drink fluids, or other new or worsening symptoms. Prescriptions: No Action ondansetron 4 mg tablet,disintegrating 4 mg PO Q8H PRN (Reason: nausea and vomiting) Qty: 10 0RF Referrals: Juan Gonzalez MD [Primary Care Provider] - Stand Alone Forms: Patient Portal/API
== END 2023-02-22 12:27 | disposition home or self-care (01) ==
PROVIDERS: Emergency Provider Registered Nurse; PCP Internal Medicine
DX: S29.9XXA Unspecified injury of thorax, initial encounter (principal); W01.0XXA Fall on same level from slipping, tripping and stumbling without subsequent striking against object, initial encounter
CPT/HCPCS: 71101; 99281; 99283

== ENCOUNTER 2023-04-15 11:11 | Emergency (ER) | payer OTHER, MEDICAID, SELFPAY ==
[2023-02-12 13:26] VITALS: BMI 21.0
[2023-04-15] VITALS (12 sets, daily range): BP systolic 131–184; BP diastolic 84–133; PULSE 67–153; RESP 17–41; TEMP 36.6; O2SAT 96–99; BMI 20.1
[2023-04-15 11:33] LABS: Add Manual Diff / Slide Review NO; Basophils Absolute Auto 100 /uL (0-100); Basophils Percent Auto 2.2 % (0-2); Eosinophils Absolute Auto 0 /uL (0-450); Eosinophils Percent Auto 0.6 % (2-4); Hematocrit 45.6 % (36-46); Hemoglobin 15.6 g/dL (12.0-16.0); Lymphocytes Absolute Auto 1200 /uL (1100-4500); Lymphocytes Percent Auto 33.7 % (25-40); Mean Corpuscular HGB Conc 34.3 % (30-36); Mean Corpuscular Volume 96.4 fL (80-100); Monocytes Absolute Auto 400 /uL (0-900); Monocytes Percent Auto 11.9 % (3-14); Neutrophils Absolute Auto 1800 /uL (1500-7000); Neutrophils Percent Auto 51.6 % (50-75); Platelet Count 83 X10^3/uL (150-400); Red Blood Cell Count 4.73 X10^6/uL (4.0-5.2); Red Cell Distribution Width 12.9 % (11.6-14.8); White Blood Cell Count 3.5 X10^3/uL (4.5-11.0)
[2023-04-15] MEDS: ONDANSETRON 4 MG/2 ML INJ IV (11:33)
--- NOTE | 2023-04-15 11:35 | DI.RAD.S_ITS ---
PROCEDURE: XR CHEST 1V INDICATIONS: chest pain TECHNIQUE: One view of the chest was acquired. COMPARISON: [facility], CR, XR CHEST 1V, 02/14/2023, 7:50. FINDINGS: Surgical changes and devices: None. Lungs and pleura: Lungs are clear. No pleural effusions or pneumothorax. Mediastinum: Mediastinal contours appear normal. Heart size is normal. Bones and chest wall: No suspicious bony lesions. Overlying soft tissues appear unremarkable. IMPRESSION: No acute cardiopulmonary abnormality is seen. Dictated by: Nivia Coles M.D. on 04/15/2023 at 12:22 Approved by: Nivia Coles M.D. on 04/15/2023 at 12:22
[2023-04-15 11:38] LABS: Alanine Aminotransferase 83 IU/L (<35); Albumin 4.4 g/dL (3.5-5.0); Alkaline Phosphatase 175 U/L (38-126); Aspartate Aminotransferase 354 IU/L (14-36); BUN Creatinine Ratio 5.1 (6-22); Bilirubin Total 3.6 mg/dL (0.2-1.3); Blood Urea Nitrogen 3 mg/dL (7-17); Calcium 9.4 mg/dL (8.4-10.2); Carbon Dioxide 33 mmol/L (22-32); Chloride 97 mmol/L (98-107); Estimated Glomerular Filt Rate > 60 mL/min (>60); Globulin 4.2 g/dL (1.7-4.1); Glucose 113 mg/dL (70-100); HEMOLYSIS < 15 (0-50); Lipase 60 U/L (23-300); Potassium 3.2 mmol/L (3.4-5.1); Sodium 137 mmol/L (137-145); Total Protein 8.6 g/dL (6.3-8.2)
--- NOTE | 2023-04-15 12:04 | ED.ARRPALP ---
HPI - Arrhythmia/Palpitations General Chief Complaint: Arrhythmia/Palpitations Stated Complaint: vomiting, racing heart beat Time Seen by Provider: 04/15/23 11:55 Source: patient Mode of arrival: Wheelchair History of Present Illness HPI narrative: This is a 47-year-old female with a history of alcohol abuse, hyponatremia and thrombocytopenia presenting with nausea and vomiting x2 days. Also reports that today her ?heart was racing?. Says that after vomiting this morning she started having chest and upper back pain as well. She has not had any fevers she has not had any hematemesis no changes in her bowel habits. Patient does not have urinary symptoms and reports she is postmenopausal. Less alcohol was yesterday, no history of withdrawal seizures, no previous abdominal surgeries. The patient is accompanied by her who contributes the history Related Data Previous Rx's Medication Instructions Recorded ondansetron 4 mg disintegrating 4 mg PO Q8H PRN nausea and 12/28/22 tablet vomiting #10 tabs ondansetron 4 mg disintegrating 4 mg PO Q6H PRN nausea and 04/15/23 tablet vomiting #14 tabs Allergies Allergy/AdvReac Type Severity Reaction Status Date / Time codeine Allergy Verified 02/22/23 10:57 morphine Allergy Verified 02/22/23 10:57 Penicillins Allergy Verified 02/22/23 10:57 Patient History Medical History (Updated 04/15/23 @ 14:58 by Joaquin Du MD) Pancreatitis Alcohol abuse History of arteriovenous malformation (AVM) Alcohol use disorder [place] disease Social History household members: spouse Smoking Status: Unknown if ever smoked alcohol intake: current Smoking Status: Unknown if ever smoked alcohol intake frequency: 3 or more drinks per day Substance Use Type: marijuana and crack/cocaine Exam Initial Vital Signs Initial Vital Signs: Vital Signs Pulse Rate 147 H 04/15/23 11:18 Pulse Oximetry 99 04/15/23 11:18 Tachycardic on arrival, heart rate normalized without intervention. Const Other: Alert and anxious HENMT Head: normocephalic and atraumatic Resp Effort & Inspection: normal respiratory effort Auscultation: clear to auscultation bilaterally Cardio Other: Regular rhythm rate no murmur rub or gallop, tachycardia noted on arrival normal heart rate now GI Other: Bowel sounds are normal abdomen soft with epigastric tenderness no guarding or rebound Skin Other: Warm and dry without jaundice Neuro General: patient awake, patient oriented x3 and other (No tremors) Course Orders Ordered: ED Orders 04/15/23 11:18 Complete Blood Count AUTO DIFF Stat Comprehensive Metabolic Panel Stat Lipase Stat 04/15/23 11:26 EKG-12 Lead Stat 04/15/23 11:35 XR chest 1V Stat Complete Blood Count AUTO DIFF Stat Creatinine & eGFR Stat Magnesium Stat PTT Partial Thromboplastin Aryan Stat Prothrombin Time INR Stat Troponin & CK Cardiac Panel Stat 04/15/23 12:03 CMP [Comprehensive Metabolic Panel] Stat Ethanol (ETOH) Stat Lipase Stat 04/15/23 14:37 Urine Microscopic Stat Ondansetron HCl (Ondansetron 4 Mg/2 Ml Inj) 4 mg IV NOW PRN PRN Reason: Nausea And Vomiting Last Admin: 04/15/23 11:33 Dose: 4 mg Documented By: YANETH Discontinued Medications Droperidol (Droperidol 5 Mg/2 Ml Vial) 0.625 mg IV NOW ONE Stop: 04/15/23 12:03 Last Admin: 04/15/23 12:11 Dose: 0.625 mg Documented By: YANETH Sodium Chloride (Normal Saline 0.9%) 1,000 mls @ 1,000 mls/hr IV BOLUS ONE Stop: 04/15/23 13:01 Last Infusion: 04/15/23 13:02 Dose: Infused Documented By: Admin: 04/15/23 12:10 Dose: 1,000 mls/hr Documented By: YANETH Reevaluation(s) Reevaluation #1: Patient is feeling better after IV fluids and antiemetics. She is tolerated oral intake. Discussed the generally reassuring workup and recommendations for discharge Vital Signs Vital signs: Vital Signs - 8 hr 04/15/23 11:18 04/15/23 11:20 04/15/23 11:30 Temperature 97.8 F Pulse Rate 147 H 153 H 129 H Respiratory Rate 24 41 H Blood Pressure 177/110 H Pulse Oximetry 99 99 96 Oxygen Delivery Method Room Air Room Air 04/15/23 11:42 04/15/23 11:42 04/15/23 12:00 Temperature Pulse Rate 98 H Respiratory Rate 21 Blood Pressure 137/94 H 156/101 H Pulse Oximetry 99 Oxygen Delivery Method Room Air 04/15/23 12:00 04/15/23 12:30 04/15/23 12:30 Temperature Pulse Rate 93 H 67 Respiratory Rate 35 H 36 H Blood Pressure 153/90 H Pulse Oximetry 99 98 Oxygen Delivery Method 04/15/23 13:00 04/15/23 13:00 04/15/23 13:30 Temperature Pulse Rate 68 72 Respiratory Rate 25 H 25 H Blood Pressure 136/88 Pulse Oximetry 98 98 Oxygen Delivery Method Room Air 04/15/23 13:30 04/15/23 14:00 04/15/23 14:00 Temperature Pulse Rate 70 Respiratory Rate 21 Blood Pressure 144/90 H 131/84 Pulse Oximetry 97 Oxygen Delivery Method Room Air 04/15/23 14:29 04/15/23 14:30 Temperature Pulse Rate 83 Respiratory Rate 17 Blood Pressure 184/133 H Pulse Oximetry 98 Oxygen Delivery Method Room Air MDM - Arrhythmia/Palpitations Lab Data Lab results narrative: CMP shows a mildly low potassium, prominent not clinically significant, has mild elevations in transaminases and bilirubin chronic for this patient. Lipase is normal. CBC thrombocytopenia and minimally low white count. Urinalysis shows ketones otherwise negative. 04/15/23 11:18 04/15/23 11:18 Labs: Lab Results 04/15/23 Range/Units 11:18 WBC 3.5 L (4.5-11.0) X10^3/uL RBC 4.73 (4.0-5.2) X10^6/uL Hgb 15.6 (12.0-16.0) g/dL Hct 45.6 (36-46) % MCV 96.4 (80-100) fL MCH 33.0 (26-34) PG MCHC 34.3 (30-36) % RDW 12.9 (11.6-14.8) % Plt Count 83 L (150-400) X10^3/uL Neut % (Auto) 51.6 (50-75) % Lymph % (Auto) 33.7 (25-40) % [place] % (Auto) 11.9 (3-14) % Eos % (Auto) 0.6 L (2-4) % Baso % (Auto) 2.2 H (0-2) % Neut # (Auto) 1800 (8525-9709) /uL Lymph # (Auto) 1200 (7362-5623) /uL [place] # (Auto) 400 (0-900) /uL Eos # (Auto) 0 (0-450) /uL Baso # (Auto) 100 (0-100) /uL Sodium 137 (137-145) mmol/L Potassium 3.2 L (3.4-5.1) mmol/L Chloride 97 L (98-107) mmol/L Carbon Dioxide 33 H (22-32) mmol/L BUN 3 L (7-17) mg/dL Creatinine 0.59 (0.52-1.04) mg/dL Estimated GFR > 60 (>60) mL/min BUN/Creatinine Ratio 5.1 L (6-22) Glucose 113 H (70-100) mg/dL Calcium 9.4 (8.4-10.2) mg/dL Total Bilirubin 3.6 H (0.2-1.3) mg/dL AST 354 H (14-36) IU/L ALT 83 H (<35) IU/L Alkaline Phosphatase 175 H (38-126) U/L Total Protein 8.6 H (6.3-8.2) g/dL Albumin 4.4 (3.5-5.0) g/dL Globulin 4.2 H (1.7-4.1) g/dL Albumin/Globulin Ratio 1.0 (1.0-2.8) Lipase 60 (23-300) U/L Point of Care Testing Test Results Negative Urine Dip Bedside Urine Glucose Negative Bedside Urine Bilirubin + 1 Bedside Urine Ketone + 15 Urine Specific [place] 1.020 Bedside Urine Occult Blood - Negative Bedside Urine pH 6.5 Bedside Urine Protein + 30 Bedside Urine Urobilinogen +/- 1mg Bedside Urine Nitrite - Negative Bedside Urine Leukocytes +/- 15 Esterase Imaging Data Chest x-ray: My Impression: Independent review of chest x-ray, no acute disease ECG Data Interpretation: ECG shows sinus tachycardia at 1:09 a.m.. Anterior Q-waves, no acute ST segment elevation, intervals are normal MDM Narrative Medical decision making narrative: 47-year-old female who presents with tachycardia and nausea and vomiting. Broad differential here, with restricted tachycardia considered alcohol withdrawal however really not consistent with the clinical picture as her tachycardia improved with symptom control for nausea and vomiting. He had nausea and vomiting I considered gastritis, pancreatitis, cholecystitis urinary tract infection bowel obstruction among possible etiologies. None of these really seemed to be supported by the data. She was improved with IV fluids and antiemetics. Discharge her with a prescription for Zofran. Recommended primary care follow up. Discharge Plan Departure Patient Disposition: Home Clinical Impression: Palpitations Nausea & vomiting Qualifiers: Vomiting type: unspecified Qualified Code(s): R11.2 - Nausea with vomiting, unspecified Instructions: Nausea and Vomiting-Adult Activity Restrictions/Additional Instructions: Emergency department evaluation today is reassuring. I think it is safe to go home make sure that you get adequate fluids, start with Gatorade or something similar and advance diet as tolerated. I have sent a prescription for ondansetron they may use as needed for nausea and vomiting. If having increasing nausea and vomiting fainting chest pain shortness of breath or other acute symptoms recheck in the emergency department. As always I recommend people decrease her alcohol intake. Follow up soon with her primary care provider for a recheck. Prescriptions: New ondansetron 4 mg tablet,disintegrating 4 mg PO Q6H PRN (Reason: nausea and vomiting) Qty: 14 0RF No Action ondansetron 4 mg tablet,disintegrating 4 mg PO Q8H PRN (Reason: nausea and vomiting) Qty: 10 0RF Referrals: Juan Gonzalez MD [Primary Care Provider] - Stand Alone Forms: Patient Portal/API
[2023-04-15] MEDS: SODIUM CHLORIDE 0.9% 1,000 ML 1000 ML IV (12:10)
[2023-04-15] MEDS: DROPERIDOL 5 MG/2 ML VIAL 0.625 MG IV (12:11)
== END 2023-04-15 15:08 | disposition home or self-care (01) ==
PROVIDERS: Emergency Provider Emergency Medicine; PCP Internal Medicine
DX: R00.2 Palpitations (principal); R11.2 Nausea with vomiting, unspecified
CPT/HCPCS: 36415; 71045; 80053; 81003; 81025; 83690; 85025; 93005; 96361; 96374; 96375; 99284; J1790; J2405

== ENCOUNTER 2023-12-22 09:08 | Emergency (ER) | payer OTHER, MEDICAID, SELFPAY ==
[2023-02-12 13:26] VITALS: BMI 21.0
[2023-12-22] VITALS (8 sets, daily range): BP systolic 127–152; BP diastolic 79–88; PULSE 66–85; RESP 17; TEMP 36.8; O2SAT 96–100
--- NOTE | 2023-12-22 09:08 | ED_ITS ---
HPI - General Adult General Chief complaint: Nausea/Vomiting/Diarrhea Stated complaint: Acute onset N/V Time Seen by Provider: 12/22/23 09:13 History of Present Illness HPI narrative: 48-year-old woman who describes no significant medical history but review of records indicate alcohol use disorder Kristian is disease and pancreatitis she states that she had a glass of wine with dinner last night was feeling fine when she went to bed. She woke up this morning feeling well and then began having severe left upper quadrant pain she describes it in the lower anterior ribs in pinpoint pain to her ribs. When asked if she falls her answer was ?I fall all the time, I am a walking accident?. She does not have any bruising over the area. She was given 12.5 mg of promethazine in route which has helped with her nausea. Medics describe a moderate amount of emesis continuing to come up after their arrival. They note no blood in the emesis. The patient notes no diarrhea, she gets sweaty prior to the episodes of vomiting but no kanu fevers or chills. No other complaints this time Related Data Previous Rx's Medication Instructions Recorded ondansetron 4 mg disintegrating 4 mg PO Q8H PRN nausea and 12/28/22 tablet vomiting #10 tabs ondansetron 4 mg disintegrating 4 mg PO Q6H PRN nausea and 04/15/23 tablet vomiting #14 tabs promethazine 25 mg tablet 25 mg PO TID PRN nausea and 12/22/23 vomiting #14 tabs Allergies Allergy/AdvReac Type Severity Reaction Status Date / Time codeine Allergy Verified 02/22/23 10:57 morphine Allergy Verified 02/22/23 10:57 Penicillins Allergy Verified 02/22/23 10:57 Review of Systems Review of Systems Narrative: Pertinent positive and negative findings as per HPI Patient History Medical History Pancreatitis Alcohol abuse History of arteriovenous malformation (AVM) Alcohol use disorder [place] disease Social History household members: spouse Smoking Status: Unknown if ever smoked alcohol intake: current Smoking Status: Unknown if ever smoked alcohol intake frequency: 3 or more drinks per day Substance Use Type: marijuana and crack/cocaine Exam Initial Vital Signs Initial Vital Signs: Vital Signs Pulse Rate 74 12/22/23 09:13 Blood Pressure 152/86 H 12/22/23 09:13 Pulse Oximetry 97 12/22/23 09:13 General: Chronically ill-appearing, curled up in a ball had buried into the pillow, minimally cooperative with the exam Respiratory: Lungs are clear to auscultation, no wheezing no rales no rhonchi. Full and symmetrical air movement Cardiac: Regular rate and rhythm no murmurs no bruits Abdomen: Soft, mild tenderness in the right upper quadrant and tenderness mid axillary line ribs 11 and 12 on the right side without obvious contusion overlying this Skin: Pale, Neurologic: Grossly neurologically intact with no obvious asymmetries or abnormalities Extremities: No trauma, Psych: Able speak in full sentences, no pressors speech no evidence of hallucinations, minimally cooperative exam Course Orders Ordered: ED Orders 12/22/23 09:00 Complete Blood Count AUTO DIFF Stat Comprehensive Metabolic Panel Stat Ethanol (ETOH) Stat Lactate (Lactic Acid) Stat Lipase Stat Magnesium Stat 12/22/23 09:23 Urinalysis and Microscopic Stat Hydromorphone HCl (Hydromorphone 0.5 Mg Inj) 0.5 mg IV Q15MIN PRN PRN Reason: Pain, Last Admin: 12/22/23 12:14 Dose: 0.5 mg Documented By: SAHRA Ondansetron HCl (Ondansetron 4 Mg/2 Ml Inj) 4 mg IV NOW PRN PRN Reason: Nausea And Vomiting Last Admin: 12/22/23 11:42 Dose: 4 mg Documented By: SAHRA Ondansetron HCl (Ondansetron 4 Mg Odt) 4 mg PO NOW PRN PRN Reason: Nausea And Vomiting Discontinued Medications Sodium Chloride (Normal Saline 0.9%) 1,000 mls @ 1,000 mls/hr IV BOLUS ONE Stop: 12/22/23 10:21 Last Infusion: 12/22/23 11:38 Dose: Infused Documented By: Admin: 12/22/23 10:06 Dose: 1,000 mls/hr Documented By: WINSOME Thiamine HCl 100 mg/ Sodium (Chloride) 101 mls @ 404 mls/hr IV NOW ONE Stop: 12/22/23 09:23 Last Infusion: 12/22/23 11:02 Dose: Infused Documented By: Admin: 12/22/23 10:04 Dose: 404 mls/hr Documented By: WINSOME Sodium Chloride (Normal Saline 0.9%) 1,000 mls @ 1,000 mls/hr IV BOLUS ONE Stop: 12/22/23 12:30 Last Infusion: 12/22/23 12:11 Dose: Infused Documented By: Admin: 12/22/23 11:42 Dose: 1,000 mls/hr Documented By: SAHRA Magnesium Sulfate (Magnesium Sulfate) 2 gm in 50 mls @ 150 mls/hr IV NOW ONE Stop: 12/22/23 11:50 Last Infusion: 12/22/23 12:17 Dose: Infused Documented By: SAHRA Co-signed By: WINSOME Admin: 12/22/23 11:49 Dose: 150 mls/hr Documented By: SAHRA Co-signed By: WINSOME Pantoprazole Sodium (Pantoprazole 40 Mg Vial) 40 mg IV NOW ONE Stop: 12/22/23 11:32 Last Admin: 12/22/23 11:42 Dose: 40 mg Documented By: SAHRA Vital Signs Vital signs: Vital Signs - 8 hr 12/22/23 09:13 12/22/23 09:13 12/22/23 09:17 Temperature 98.2 F Pulse Rate 74 73 Respiratory Rate 17 Blood Pressure 152/86 H 152/86 H Pulse Oximetry 97 98 Oxygen Delivery Method Room Air 12/22/23 09:30 12/22/23 09:30 12/22/23 10:00 Temperature Pulse Rate 71 74 Respiratory Rate Blood Pressure 127/79 Pulse Oximetry 96 97 Oxygen Delivery Method 12/22/23 10:00 12/22/23 10:30 12/22/23 10:30 Temperature Pulse Rate 66 Respiratory Rate Blood Pressure 135/80 143/85 H Pulse Oximetry 99 Oxygen Delivery Method 12/22/23 11:00 12/22/23 11:01 12/22/23 11:01 Temperature Pulse Rate 85 81 Respiratory Rate Blood Pressure 131/88 Pulse Oximetry 98 99 Oxygen Delivery Method 12/22/23 11:30 12/22/23 11:30 Temperature Pulse Rate 78 Respiratory Rate Blood Pressure 142/85 H Pulse Oximetry 100 Oxygen Delivery Method Medical Decision Making Lab Data 12/22/23 09:00 12/22/23 09:00 Labs: Lab Results 11/06/24 11/06/24 Range/Units 09:00 11:34 WBC 4.5 (4.5-11.0) X10^3/uL RBC 4.42 (4.0-5.2) X10^6/uL Hgb 15.1 (12.0-16.0) g/dL Hct 43.5 (36-46) % MCV 98.3 (80-100) fL MCH 34.1 H (26-34) PG MCHC 34.7 (30-36) % RDW 12.0 (11.6-14.8) % Plt Count 180 (150-400) X10^3/uL Neut % (Auto) 66.8 (50-75) % Lymph % (Auto) 18.9 L (25-40) % [place] % (Auto) 10.8 (3-14) % Eos % (Auto) 1.5 L (2-4) % Baso % (Auto) 2.0 (0-2) % Neut # (Auto) 3000 (3099-2573) /uL Lymph # (Auto) 800 L (4078-3926) /uL [place] # (Auto) 500 (0-900) /uL Eos # (Auto) 100 (0-450) /uL Baso # (Auto) 100 (0-100) /uL Sodium 140 (137-145) mmol/L Potassium 3.5 (3.4-5.1) mmol/L Chloride 98 (98-107) mmol/L Carbon Dioxide 30 (22-32) mmol/L BUN 6 L (7-17) mg/dL Creatinine 0.65 (0.52-1.04) mg/dL Estimated GFR > 60 (>60) mL/min BUN/Creatinine Ratio 9.2 (6-22) Glucose 113 H (70-100) mg/dL Lactate 3.9 H 1.1 (0.7-2.1) mmol/L Calcium 9.4 (8.4-10.2) mg/dL Magnesium 1.3 L (1.6-2.3) mg/dL Total Bilirubin 1.6 H (0.2-1.3) mg/dL AST 100 H (14-36) IU/L ALT 44 H (<35) IU/L Alkaline Phosphatase 81 (38-126) U/L Total Protein 8.3 H (6.3-8.2) g/dL Albumin 4.7 (3.5-5.0) g/dL Globulin 3.6 (1.7-4.1) g/dL Albumin/Globulin Ratio 1.3 (1.0-2.8) Lipase 97 (23-300) U/L Ethyl Alcohol < 10 ( - 10) mg/dL MDM Narrative Medical decision making narrative: CC: Profuse vomiting onset this morning Complicating co-morbidities: History of liver disease, alcohol use, issues related to alcohol use Data collected from: patient, medics Medical records reviewed: Prior ED visits most recently in March of 2023 reviewed. She was admitted for similar complaints in February of 2023 Differential considered: Viral syndrome, upper GI bleed, pancreatitis, gallbladder related disease, alcohol withdrawal, alcoholic hepatitis Exam documented above, pertinent findings include: Patient is curled up in a ball complains of upper abdominal pain. She does not have rebound or guarding, there was no blood in her emesis. Lab Test results independently reviewed as above. Pertinent findings: CBC is unremarkable Chemistries show low magnesium appropriate renal function, sodium potassium appropriate Liver studies are elevated with total bilirubin at 1.6 which is down from where she has been previously, AST at 100 ALT at 44, all down in comparison to March of 2023 Lipase is unremarkable Lactic is elevated at 3.9 consistent with dehydration from her vomiting, in the absence of fever I do not suspect sepsis Alcohol level is undetectable Treatments: 2 L of fluid, Zofran Re-evaluations: Lactic acid has come down to normal with appropriate hydration Discussion: On re-evaluation patient is feeling much better with fluids and antiemetics. Reviewed her labs including the decreasing liver enzymes. She notes she has been trying to curb her drinking significantly. She is able to drink some raffi isatu and eat some crackers. There was no sign at this point of significant infection, liver failure, renal failure, dramatic electrolyte abnormalities. She is able to take fluids in, will discharge her home, she would like a prescription for promethazine sent to [facility] here in [place]. Currently there is no indication for additional imaging or hospitalization. She is safe for discharge Discharge Plan Departure Patient Disposition: Home Clinical Impression: Hypomagnesemia Nausea & vomiting Qualifiers: Vomiting type: unspecified Qualified Code(s): R11.2 - Nausea with vomiting, unspecified Instructions: DI for Nausea -- Adult Activity Restrictions/Additional Instructions: Thank you for coming in today I am sorry that you are having so much vomiting. You were given promethazine as well as ondansetron to help with the nausea. After 2 L of fluid you are certainly feeling better. Your lab work was reassuring. Your liver studies are actually moving closer to normal than when last evaluated I have given you a prescription for promethazine to merchandise pickup/receiving associate at [facility] later this afternoon. I would recommend picking up some Gatorade or other electrolyte solutions to help keep yourself hydrated over the next day or so. If you find that you are getting worse or develop any new symptoms, please feel free to return to the emergency department for further evaluation. Prescriptions: New promethazine 25 mg tablet 25 mg PO TID PRN (Reason: nausea and vomiting) Qty: 14 0RF No Action ondansetron 4 mg tablet,disintegrating 4 mg PO Q8H PRN (Reason: nausea and vomiting) Qty: 10 0RF ondansetron 4 mg tablet,disintegrating 4 mg PO Q6H PRN (Reason: nausea and vomiting) Qty: 14 0RF Referrals: Juan Gonzalez MD [Primary Care Provider] - Stand Alone Forms: Patient Portal/API/Survey
[2023-12-22 09:37] LABS: Add Manual Diff / Slide Review NO; Basophils Absolute Auto 100 /uL (0-100); Eosinophils Absolute Auto 100 /uL (0-450); Eosinophils Percent Auto 1.5 % (2-4); Hematocrit 43.5 % (36-46); Hemoglobin 15.1 g/dL (12.0-16.0); Lymphocytes Absolute Auto 800 /uL (1100-4500); Lymphocytes Percent Auto 18.9 % (25-40); Mean Corpuscular HGB Conc 34.7 % (30-36); Mean Corpuscular Hemoglobin 34.1 PG (26-34); Mean Corpuscular Volume 98.3 fL (80-100); Monocytes Absolute Auto 500 /uL (0-900); Monocytes Percent Auto 10.8 % (3-14); Neutrophils Absolute Auto 3000 /uL (1500-7000); Neutrophils Percent Auto 66.8 % (50-75); Platelet Count 180 X10^3/uL (150-400); Red Blood Cell Count 4.42 X10^6/uL (4.0-5.2); White Blood Cell Count 4.5 X10^3/uL (4.5-11.0)
[2023-12-22 09:42] LABS: Lactate (Lactic Acid) 3.9 mmol/L (0.7-2.1)
[2023-12-22 09:43] LABS: Alanine Aminotransferase 44 IU/L (<35); Albumin 4.7 g/dL (3.5-5.0); Albumin Globulin Ratio 1.3 (1.0-2.8); Alkaline Phosphatase 81 U/L (38-126); Aspartate Aminotransferase 100 IU/L (14-36); BUN Creatinine Ratio 9.2 (6-22); Bilirubin Total 1.6 mg/dL (0.2-1.3); Blood Urea Nitrogen 6 mg/dL (7-17); Calcium 9.4 mg/dL (8.4-10.2); Carbon Dioxide 30 mmol/L (22-32); Chloride 98 mmol/L (98-107); Estimated Glomerular Filt Rate > 60 mL/min (>60); Globulin 3.6 g/dL (1.7-4.1); Glucose 113 mg/dL (70-100); HEMOLYSIS < 15 (0-50); Lipase 97 U/L (23-300); Magnesium 1.3 mg/dL (1.6-2.3); Potassium 3.5 mmol/L (3.4-5.1); Sodium 140 mmol/L (137-145); Total Protein 8.3 g/dL (6.3-8.2)
[2023-12-22 09:49] LABS: Ethanol (ETOH) < 10 mg/dL
[2023-12-22] MEDS: THIAMINE 100 MG in SODIUM CHLORIDE 0.9% 100 ML 404 MG IV (10:04)
[2023-12-22] MEDS: SODIUM CHLORIDE 0.9% 1,000 ML 1000 ML IV ×2 (10:06→11:42)
--- NOTE | 2023-12-22 10:08 | PC.NURSE ---
Patient now complaining of some diffuse abdominal pain. Falling back asleep.
[2023-12-22 11:05] LABS: Reflexed Lactate in 2 Hours Y
[2023-12-22] MEDS: PANTOPRAZOLE 40 MG VIAL IV (11:42)
[2023-12-22] MEDS: ONDANSETRON 4 MG/2 ML INJ IV (11:42)
[2023-12-22] MEDS: MAGNESIUM SULFATE 2 GM/50 ML PIGGYBACK IV (11:49)
--- NOTE | 2023-12-22 11:54 | PC.NURSE ---
patient complains of left thumb pain after fall this morning. patient has limited range of motion and states that her thumb clicks during extension. pt attempted to extend and audible click was heard during extension.
[2023-12-22 12:14] LABS: Lactate 2HR (Lactic Acid Rflx) 1.1 mmol/L (0.7-2.1)
[2023-12-22] MEDS: HYDROMORPHONE 0.5 MG INJ IV (12:14)
[2023-12-22 13:54] LABS: Appearance Urine UA CLEAR; Bilirubin Urine UA NEGATIVE (NEGATIVE); Color Urine UA ORANGE; Glucose Urine UA NEGATIVE (Negative); Ketones Urine UA TRACE (NEGATIVE); Leukocyte Esterase Urine UA NEGATIVE (NEGATIVE); Nitrite Urine UA POSITIVE (Negative); Occult Blood Urine UA NEGATIVE (Negative); Protein Urine UA NEGATIVE (Negative)
[2023-12-22 14:01] LABS: Pregnancy Test Urine Negative (Negative); Urine Volume 10mL (spun)
[2023-12-22 14:02] LABS: Bacteria Urine Many (>30); Culture Indicated Urine Specimen Cultured; RBC Urine 0-1/HPF (0-5/HPF); Squamous Epithelial Cell Urine 5-10 /HPF (0-5/HPF); WBC Urine 0-1/HPF (0-5/HPF)
== END 2023-12-22 14:15 | disposition home or self-care (01) ==
PROVIDERS: Emergency Provider Emergency Medicine; PCP Internal Medicine; Referring Provider Emergency Medicine
DX: E83.42 Hypomagnesemia (principal); R11.2 Nausea with vomiting, unspecified; R79.89 Other specified abnormal findings of blood chemistry
CPT/HCPCS: 36415; 80053; 80320; 81001; 81025; 83605; 83690; 83735; 85025; 87086; 96365; 96367; 96375; 99284; J1171; J2405; J2470; J3475

== ENCOUNTER 2024-04-23 00:50 | Emergency (ER) | payer OTHER, SELFPAY ==
[2023-02-12 13:26] VITALS: BMI 21.0
== END 2024-04-23 01:41 | disposition left against medical advice (07) ==
PROVIDERS: Emergency Provider Emergency Medicine; PCP Internal Medicine

== ENCOUNTER 2024-04-23 10:25 | Inpatient (IN) | payer OTHER, SELFPAY ==
[2023-02-12 13:26] VITALS: BMI 21.0
[2024-04-23] VITALS (16 sets, daily range): BP systolic 122–176; BP diastolic 67–111; PULSE 65–106; RESP 14–38; TEMP 36.4–37.2; O2SAT 97–100; BMI 22.8
--- NOTE | 2024-04-23 10:39 | DI.RAD.S_ITS ---
PROCEDURE: XR CHEST 1V INDICATIONS: wheezing, SOB, fever vomiting TECHNIQUE: One view of the chest was acquired. COMPARISON: [facility], CR, XR CHEST 1V, 04/15/2023, 11:39. [facility], CR, XR CHEST 1V, 02/14/2023, 7:50. FINDINGS: Surgical changes and devices: None. Lungs and pleura: Lungs are clear. No pleural effusions or pneumothorax. Mediastinum: Mediastinal contours appear normal. Heart size is normal. Bones and chest wall: No suspicious bony lesions. Overlying soft tissues appear unremarkable. IMPRESSION: No acute cardiopulmonary abnormality is seen. Dictated by: Christine Hay M.D. on 04/23/2024 at 10:19 Approved by: Christine Hay M.D. on 04/23/2024 at 10:23
[2024-04-23] MEDS: ONDANSETRON 4 MG/2 ML INJ IV (10:41)
[2024-04-23] MEDS: SODIUM CHLORIDE 0.9% 1,000 ML 1000 ML IV ×2 (10:42→11:47)
--- NOTE | 2024-04-23 10:54 | EKG_ITS ---
[facility] [address] [place] [address] Test Date: 2024-04-23 Pat Name: Yanet Ruffin Department: 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
[2024-04-23 10:56] LABS: Alanine Aminotransferase 171 IU/L (<35); Albumin 5.2 g/dL (3.5-5.0); Albumin Globulin Ratio 1.3 (1.0-2.8); Alkaline Phosphatase 168 U/L (38-126); Aspartate Aminotransferase 342 IU/L (14-36); BUN Creatinine Ratio 10.5 (6-22); Bilirubin Total 3.2 mg/dL (0.2-1.3); Blood Urea Nitrogen 8 mg/dL (7-17); Calcium 10.5 mg/dL (8.4-10.2); Carbon Dioxide 22 mmol/L (22-32); Chloride 84 mmol/L (98-107); Estimated Glomerular Filt Rate > 60 mL/min (>60); Globulin 4.1 g/dL (1.7-4.1); Glucose 96 mg/dL (70-100); HEMOLYSIS < 15 (0-50); Potassium 2.9 mmol/L (3.4-5.1); Sodium 136 mmol/L (137-145); Total Protein 9.3 g/dL (6.3-8.2)
[2024-04-23 11:07] LABS: Add Manual Diff / Slide Review NO; Basophils Absolute Auto 100 /uL (0-100); Basophils Percent Auto 1.3 % (0-2); Eosinophils Absolute Auto 0 /uL (0-450); Eosinophils Percent Auto 0.3 % (2-4); Hemoglobin 15.4 g/dL (12.0-16.0); Lymphocytes Absolute Auto 900 /uL (1100-4500); Lymphocytes Percent Auto 17.2 % (25-40); Mean Corpuscular HGB Conc 35.1 % (30-36); Mean Corpuscular Hemoglobin 33.6 PG (26-34); Mean Corpuscular Volume 95.7 fL (80-100); Monocytes Absolute Auto 800 /uL (0-900); Monocytes Percent Auto 13.8 % (3-14); Neutrophils Absolute Auto 3700 /uL (1500-7000); Neutrophils Percent Auto 67.4 % (50-75); Platelet Count 157 X10^3/uL (150-400); Red Cell Distribution Width 11.9 % (11.6-14.8); White Blood Cell Count 5.5 X10^3/uL (4.5-11.0)
[2024-04-23] MEDS: METOCLOPRAMIDE 10 MG/2 ML INJ IV (11:16)
[2024-04-23 11:22] LABS: Lipase 4793 U/L (23-300)
[2024-04-23 11:26] LABS: Influenza A - CEPHEID Flu A NEGATIVE (NEGATIVE); Influenza B - CEPHEID Flu B NEGATIVE (NEGATIVE); Respiratory Syncytial Virus Negative (Negative)
--- NOTE | 2024-04-23 11:36 | DI.CT.S_ITS ---
PROCEDURE: CT ABDOMEN PELVIS W CON INDICATIONS: Pancreatitis elevated bilirubin liver enzymes TECHNIQUE: After the administration of intravenous contrast, axial sections acquired from the lung bases to the pubic symphysis. Coronal and sagittal reformats were performed. For radiation dose reduction, the following was used: automated exposure control, adjustment of mA and/or kV according to patient size. COMPARISON: [facility], CT, CT ABDOMEN PELVIS W CON, 02/13/2023, 15:14. FINDINGS: Image quality: Diagnostic. Lower Chest: No significant findings. ABDOMEN: Liver: Diffusely hypoattenuating without solid mass. Gallbladder: Distended without radiopaque gallstones or wall thickening. Biliary ducts: No biliary dilation. Pancreas: No ductal dilation. Trace peripancreatic edema. Spleen: Size is within normal limits. Adrenal Glands: No adrenal nodules. Kidneys and Ureters: No hydronephrosis. No solid mass. No complex renal cystic lesion which requires follow up. Stomach and Bowel: Normal colonic caliber, without significant wall thickening. Peritoneum: No abnormal intraperitoneal fluid. No free air. Ventral Wall: No significant ventral hernia. Abdominal Nodes: No retroperitoneal or mesenteric adenopathy by size criteria. Vessels: Aorta and inferior vena cava are normal in size. PELVIS: Pelvic Organs: Unremarkable. Bladder: No bladder wall thickening, accounting for underdistention. Pelvic Nodes: No enlarged lymph nodes. Miscellaneous: No inguinal hernias are seen. Bones: No aggressive osseous abnormality. IMPRESSION: Diffusely hypoattenuating liver concerning for hepatitis, although severe hepatic steatosis may also have this appearance. Trace peripancreatic fluid which may be related to acute pancreatitis. Gallbladder distension which is non-specific and may be secondary to nutritional status as there is no evidence of biliary obstruction. Dictated by: Christine Hay M.D. on 04/23/2024 at 11:07 Approved by: Christine Hay M.D. on 04/23/2024 at 11:15
[2024-04-23 12:17] LABS: COVID-19 CEPHEID 4-PLEX PCR Negative (Negative)
[2024-04-23] MEDS: POTASSIUM CHLORIDE IN WATER 10 MEQ/100 ML PIGGYBACK 100 MEQ IV ×8 (13:12→23:28)
[2024-04-23] MEDS: HYDROMORPHONE 0.5 MG INJ IV ×4 (13:33→22:23)
[2024-04-23 14:02] LABS: Ictotest Urine Positive (Negative)
[2024-04-23 14:12] LABS: RBC Urine 0-1/HPF (0-5/HPF); Urine Volume 10mL (spun)
[2024-04-23 14:13] LABS: Bacteria Urine None Seen; Culture Indicated Urine Cult Not Indicated; Squamous Epithelial Cell Urine 5-10 /HPF (0-5/HPF); WBC Urine 1-5/HPF (0-5/HPF)
[2024-04-23 14:17] LABS: UR Morphine/Opiate cutoff 300 Negative (Negative); Ur Creatinine Abnormal (Normal); Ur Specific Gravity Normal (Normal); Urine Amphetamines Negative (Negative); Urine Barbiturates Negative (Negative); Urine Benzodiazepines Negative (Negative); Urine Cocaine Positive (Negative); Urine MDMA Negative (Negative); Urine Methadone Negative (Negative); Urine Methamphetamines Negative (Negative); Urine Oxycodone Negative (Negative); Urine Phencyclidine Negative (Negative); Urine Tetrahydrocannabinol Positive (Negative); Urine Tricyclic Antidepressant Negative (Negative); Urine pH Normal (Normal)
--- NOTE | 2024-04-23 15:51 | ED.NAVMDI ---
HPI - Nausea/Vomiting/Diarrhea General Chief complaint: Nausea/Vomiting/Diarrhea Stated complaint: N/V, fever Time Seen by Provider: 04/23/24 10:56 History of Present Illness HPI Narrative: Patient is a 48-year-old female history of [place] disease, alcohol use disorder presenting to day with abdominal pain. She reports it has been ongoing for the last 4 days. Mild nausea vomiting. She does admit to cocaine use yesterday. States that her last alcoholic drink was 3 days ago. She does not typically go through withdrawal. Difficult to get information out of her. Most information is from charting which also reports that she had a history of pancreatitis. Related Data Home Medications Medication Instructions Recorded Confirmed ashwagandha extract 120 mg capsule 120 mg PO DAILY 04/23/24 04/23/24 omeprazole 20 mg tablet,delayed 20 mg PO DAILY 04/23/24 04/23/24 release Allergies Allergy/AdvReac Type Severity Reaction Status Date / Time codeine Allergy Verified 04/23/24 14:35 morphine Allergy Verified 04/23/24 14:35 Penicillins Allergy Verified 04/23/24 14:35 Patient History Medical History Alcohol abuse Alcohol use disorder [place] disease History of arteriovenous malformation (AVM) Pancreatitis Social History household members: spouse Smoking Status: Former smoker alcohol intake: current Smoking Status: Unknown if ever smoked alcohol intake frequency: 3 or more drinks per day Exam Initial Vital Signs Initial Vital Signs: Vital Signs Temperature 97.6 F 04/23/24 10:27 Pulse Rate 106 H 04/23/24 10:27 Respiratory Rate 16 04/23/24 10:27 Blood Pressure 122/88 04/23/24 10:27 Oxygen Delivery Method Room Air 04/23/24 10:27 GENERAL: Alert 40-year-old female appears in pain HEENT: Head atraumatic,EOMI, pupils reactive, face symmetric, [moist] mucous membranes CARDIOVASCULAR: Regular rate and rhythm without murmurs, rubs or gallops. RESPIRATORY: Breath sounds equal bilaterally, no wheezes rales or rhonchi. ABDOMEN: Soft, tender periumbilical pain no guarding no rebound EXTREMITIES: Normal range of motion, no clubbing or edema. Neurovascularly intact NEUROLOGICAL: Alert and oriented x4.Normal gait and speech. Cranial nerves II through XII grossly intact. SKIN: Warm, dry, no laceration, no petechiae, no rashes or lesions. Course Orders Ordered: ED Orders 04/23/24 10:28 Complete Blood Count AUTO DIFF Stat Comprehensive Metabolic Panel Stat Lipase Stat 04/23/24 10:34 EKG-12 Lead Stat 04/23/24 10:39 Chest [XR chest 1V] Stat 04/23/24 10:44 Covid-19 + FLU A/B + RSV - PCR Stat 04/23/24 11:36 CT abdomen pelvis w con Stat 04/23/24 13:36 Ictotest Urine Stat Urine Drug Screen, Rapid Stat Urine Microscopic Stat Acetaminophen (Acetaminophen 325 Mg Tablet) 650 mg PO Q6H PRN PRN Reason: Fever/Mild Pain (1-3) Hydromorphone HCl (Hydromorphone 0.5 Mg Inj) 0.5 mg IV Q2H PRN PRN Reason: Pain, Severe (7-10) POTASSIUM CHLORIDE IN WATER (Potassium Cl 10 Meq/100 Ml Ashley) 10 meq in 100 mls @ 100 mls/hr IV Q1H AUBREY Stop: 04/23/24 23:14 Last Admin: 04/23/24 17:34 Dose: 100 mls/hr Documented By: TLS Lactated Ringer's (Lactated Ringers) 1,000 mls @ 100 mls/hr IV CONT AUBREY Last Admin: 04/23/24 17:33 Dose: 100 mls/hr Documented By: TLS Metoclopramide HCl (Metoclopramide 10 Mg/2 Ml Inj) 5 mg IV Q6HR PRN PRN Reason: Nausea And Vomiting Naloxone HCl (Naloxone 0.4 Mg/Ml Vial) 0.2 mg IV Q2MIN PRN PRN Reason: Opiate Reversal Discontinued Medications Hydromorphone HCl (Hydromorphone 0.5 Mg Inj) 0.5 mg IV NOW ONE Stop: 04/23/24 13:23 Last Admin: 04/23/24 13:33 Dose: 0.5 mg Documented By: CTS Hydromorphone HCl (Hydromorphone 1 Mg Inj) 1 mg IV NOW ONE Stop: 04/23/24 16:12 Last Admin: 04/23/24 16:22 Dose: 1 mg Documented By: RLS Sodium Chloride (Normal Saline 0.9%) 1,000 mls @ 1,000 mls/hr IV BOLUS ONE Stop: 04/23/24 11:33 Last Infusion: 04/23/24 11:47 Dose: Infused Documented By: Admin: 04/23/24 10:42 Dose: 1,000 mls/hr Documented By: MELISSA Sodium Chloride (Normal Saline 0.9%) 1,000 mls @ 1,000 mls/hr IV BOLUS ONE Stop: 04/23/24 12:35 Last Infusion: 04/23/24 13:10 Dose: Infused Documented By: Admin: 04/23/24 11:47 Dose: 1,000 mls/hr Documented By: YURY POTASSIUM CHLORIDE IN WATER (Potassium Cl 10 Meq/100 Ml Ashley) 10 meq in 100 mls @ 100 mls/hr IV Q1H AUBREY Stop: 04/23/24 14:59 Last Infusion: 04/23/24 15:43 Dose: Infused Documented By: Admin: 04/23/24 14:42 Dose: 100 mls/hr Documented By: Infusion: 04/23/24 14:38 Dose: Infused Documented By: Admin: 04/23/24 13:12 Dose: 100 mls/hr Documented By: MELISSA Magnesium Sulfate (Magnesium Sulfate) 2 gm in 50 mls @ 150 mls/hr IV NOW ONE Stop: 04/23/24 17:27 Last Admin: 04/23/24 17:33 Dose: 150 mls/hr Documented By: IVÁN Co-signed By: MERLENE Metoclopramide HCl (Metoclopramide 10 Mg/2 Ml Inj) 10 mg IV NOW ONE Stop: 04/23/24 10:58 Last Admin: 04/23/24 11:16 Dose: 10 mg Documented By: MELISSA Ondansetron HCl (Ondansetron 4 Mg/2 Ml Inj) 4 mg IV NOW PRN PRN Reason: Nausea And Vomiting Last Admin: 04/23/24 10:41 Dose: 4 mg Documented By: MELISSA Ondansetron HCl (Ondansetron 4 Mg Odt) 4 mg PO NOW PRN PRN Reason: Nausea And Vomiting Vital Signs Vital signs: Vital Signs - 8 hr 04/23/24 11:45 04/23/24 11:47 04/23/24 11:47 Pulse Rate 80 89 Respiratory Rate 16 22 Blood Pressure 138/85 138/85 Pulse Oximetry 98 100 Oxygen Delivery Method Room Air Room Air 04/23/24 12:00 04/23/24 12:30 04/23/24 13:00 Pulse Rate 89 69 88 Respiratory Rate 19 20 Blood Pressure Pulse Oximetry 100 99 100 Oxygen Delivery Method 04/23/24 13:30 04/23/24 14:00 04/23/24 14:30 Pulse Rate 77 69 88 Respiratory Rate 38 H 14 23 Blood Pressure Pulse Oximetry 97 97 Oxygen Delivery Method Room Air 04/23/24 14:32 04/23/24 14:32 04/23/24 15:00 Pulse Rate 76 70 Respiratory Rate 15 21 Blood Pressure 135/69 Pulse Oximetry 97 97 Oxygen Delivery Method 04/23/24 15:00 04/23/24 15:30 04/23/24 15:30 Pulse Rate 68 Respiratory Rate 23 Blood Pressure 136/76 137/67 Pulse Oximetry 97 Oxygen Delivery Method 04/23/24 16:00 Pulse Rate 104 H Respiratory Rate 24 Blood Pressure Pulse Oximetry 100 Oxygen Delivery Method Room Air MDM - Nausea/Vomiting/Diarrhea Lab Data 04/23/24 10:28 04/23/24 10:28 Labs: Lab Results 04/23/24 04/23/24 04/23/24 Range/Units 10:28 10:44 13:36 WBC 5.5 (4.5-11.0) X10^3/uL RBC 4.60 (4.0-5.2) X10^6/uL Hgb 15.4 (12.0-16.0) g/dL Hct 44.0 (36-46) % MCV 95.7 (80-100) fL MCH 33.6 (26-34) PG MCHC 35.1 (30-36) % RDW 11.9 (11.6-14.8) % Plt Count 157 (150-400) X10^3/uL Neut % (Auto) 67.4 (50-75) % Lymph % (Auto) 17.2 L (25-40) % [place] % (Auto) 13.8 (3-14) % Eos % (Auto) 0.3 L (2-4) % Baso % (Auto) 1.3 (0-2) % Neut # (Auto) 3700 (5461-2777) /uL Lymph # (Auto) 900 L (6802-7766) /uL [place] # (Auto) 800 (0-900) /uL Eos # (Auto) 0 (0-450) /uL Baso # (Auto) 100 (0-100) /uL Sodium 136 L (137-145) mmol/L Potassium 2.9 L (3.4-5.1) mmol/L Chloride 84 L (98-107) mmol/L Carbon Dioxide 22 (22-32) mmol/L BUN 8 (7-17) mg/dL Creatinine 0.76 (0.52-1.04) mg/dL Estimated GFR > 60 (>60) mL/min BUN/Creatinine Ratio 10.5 (6-22) Glucose 96 (70-100) mg/dL Calcium 10.5 H (8.4-10.2) mg/dL Total Bilirubin 3.2 H (0.2-1.3) mg/dL AST 342 H (14-36) IU/L ALT 171 H (<35) IU/L Alkaline Phosphatase 168 H (38-126) U/L Total Protein 9.3 H (6.3-8.2) g/dL Albumin 5.2 H (3.5-5.0) g/dL Globulin 4.1 (1.7-4.1) g/dL Albumin/Globulin Ratio 1.3 (1.0-2.8) Lipase 4793 H (23-300) U/L Ur Bilirubin Confirm Positive H (Negative) Urine RBC 0-1/hpf (0-5/HPF) Urine WBC 1-5/hpf (0-5/HPF) Ur Squamous Epith Cells 5-10 /hpf H (0-5/HPF) Urine Bacteria None seen (None) Ur Culture Indicated? Cult not indicated Vol Urine Centrifuged 10ml (spun) U Opiates 300ng/mL cut Negative (Negative) Ur Oxycodone Screen Negative (Negative) Urine Methadone Screen Negative (Negative) Ur Barbiturates Screen Negative (Negative) U Tricyclic Antidepress Negative (Negative) Ur Phencyclidine Scrn Negative (Negative) Ur Amphetamines Screen Negative (Negative) U Methamphetamines Scrn Negative (Negative) Ur MDMA Scrn (Ecstasy) Negative (Negative) U Benzodiazepines Scrn Negative (Negative) Urine Cocaine Screen Positive H (Negative) U Marijuana (THC) Screen Positive H (Negative) Urine pH Normal (Normal) Urine Specific [place] Normal (Normal) Ur Creatinine Abnormal A (Normal) SARS-CoV-2 (PCR) Negative (Negative) Influenza A (RT-PCR) Flu a negative (NEGATIVE) Influenza B (RT-PCR) Flu b negative (NEGATIVE) RSV (PCR) Negative (Negative) Point of Care Testing Test Results Negative Urine Dip Bedside Urine Glucose Negative Bedside Urine Bilirubin + 1 Bedside Urine Ketone +++ 80 Urine Specific [place] 1.015 Bedside Urine Occult Blood - Negative Bedside Urine pH 6.0 Bedside Urine Protein + 30 Bedside Urine Urobilinogen 1+ 2mg Bedside Urine Nitrite - Negative Bedside Urine Leukocytes +/- [address] scan - abdomen/pelvis: Radiologist's Impression: PROCEDURE: CT ABDOMEN PELVIS W CON INDICATIONS: Pancreatitis elevated bilirubin liver enzymes TECHNIQUE: After the administration of intravenous contrast, axial sections acquired from the lung bases to the pubic symphysis. Coronal and sagittal reformats were performed. For radiation dose reduction, the following was used: automated exposure control, adjustment of mA and/or kV according to patient size. COMPARISON: [facility], CT, CT ABDOMEN PELVIS W CON, 02/13/2023, 15:14. FINDINGS: Image quality: Diagnostic. Lower Chest: No significant findings. ABDOMEN: Liver: Diffusely hypoattenuating without solid mass. Gallbladder: Distended without radiopaque gallstones or wall thickening. Biliary ducts: No biliary dilation. Pancreas: No ductal dilation. Trace peripancreatic edema. Spleen: Size is within normal limits. Adrenal Glands: No adrenal nodules. Kidneys and Ureters: No hydronephrosis. No solid mass. No complex renal cystic lesion which requires follow up. Stomach and Bowel: Normal colonic caliber, without significant wall thickening. Peritoneum: No abnormal intraperitoneal fluid. No free air. Ventral Wall: No significant ventral hernia. Abdominal Nodes: No retroperitoneal or mesenteric adenopathy by size criteria. Vessels: Aorta and inferior vena cava are normal in size. PELVIS: Pelvic Organs: Unremarkable. Bladder: No bladder wall thickening, accounting for underdistention. Pelvic Nodes: No enlarged lymph nodes. Miscellaneous: No inguinal hernias are seen. Bones: No aggressive osseous abnormality. IMPRESSION: Diffusely hypoattenuating liver concerning for hepatitis, although severe hepatic steatosis may also have this appearance. Trace peripancreatic fluid which may be related to acute pancreatitis. Gallbladder distension which is non-specific and may be secondary to nutritional status as there is no evidence of biliary obstruction. Dictated by: Christine Hay M.D. on 04/23/2024 at 11:07 ECG Data Attestation: I personally reviewed and interpreted this ECG as follows: Prior ECG tracings: available for review Interpretation: normal sinus rhythm rate 70 OH interval 152 QRS 82 QTC 587, previous prolonged QTC was 471 so this is new [facility] Narrative Medical decision making narrative: Patient 48-year-old female history of [place]'s disease alcohol use disorder presenting today with abdominal pain nausea vomiting. Blood work has been reviewed hypokalemia potassium 2.9 pancreatitis lipase 4793 liver enzymes elevated AST 342, ALT 171, bilirubin 3.2, these labs have been elevated previously and even been higher in the past most recently 12/22/2023 these labs were improved with a bilirubin of 1.6 AST 100 and ALT 44, however prior to that she had a bilirubin of 3.6 AST [address] imaging confirms pancreatitis hepatitis gallbladder distention which is nonspecific patient received 2 L IV fluids Dilaudid pain medication and K lindsay Reglan was given instead of Zofran for prolonged QTC noted on EKGs she was feeling better after Dilaudid but requiring more. No longer vomiting but does have pretty significant pain likely secondary to her pancreatitis. liver enzymes bilirubin elevated today but kind at her baseline. I do have low suspicion for choledocholithiasis. he does not have any evidence of ascites her CT. Discussion with at this time feels comfortable admitting no need for further imaging such as MRCP or ultrasound. Discharge Plan Departure Patient Disposition: Admitted As Inpatient Clinical Impression: Pancreatitis, Acute hypokalemia, Acute alcoholic hepatitis, Prolonged QT interval Admit Date/Time: 04/23/24 16:11 Admit Provider: Juan Gonzalez V
[2024-04-23] MEDS: HYDROMORPHONE 1 MG INJ IV (16:22)
--- NOTE | 2024-04-23 16:51 | P.HP_ITS ---
History of Present Illness History of Present Illness Date Patient Seen: 04/23/24 Time Patient Seen: 16:30 Chief complaint: N/V, fever Narrative: 48-year-old woman with history alcohol use disorder presents with 4 days of severe nausea and vomiting, fevers, neck, upper mid back and rib pain. 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 Her last bowel movement was 3 days ago. She has had fevers and chills and profound weakness. She notes her recommended she drink some wine to help calm her nerves after the 1st day but this seemed to worsen symptoms. She generally drinks a bottle or 2 with her twice weekly, and states she does not drink in between. She uses marijuana edibles. 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 She has been on this for the past year and stopped 7 days ago when she ran out, noting that she has trouble getting down to [place] to get refills. She describes small black filaments coming out from her fingers and eyes that she feels are the parasites. She was admitted to this hospital in January, for pneumonia and had complicating severe pancreatitis and hepatitis attributed to alcohol use. [facility] Medical History Alcohol abuse Alcohol use disorder [place] disease History of arteriovenous malformation (AVM) Pancreatitis Social History household members: spouse Smoking Status: Unknown if ever smoked alcohol intake: current Comment: with 3 grown children. Meds Home Medications and Allergies Home Medications Medication Instructions Recorded Confirmed Type ondansetron 4 mg disintegrating 4 mg PO Q8H PRN nausea and 12/28/22 02/12/23 Rx tablet vomiting #10 tabs ondansetron 4 mg disintegrating 4 mg PO Q6H PRN nausea and 04/15/23 Rx tablet vomiting #14 tabs promethazine 25 mg tablet 25 mg PO TID PRN nausea and 12/22/23 Rx vomiting #14 tabs Allergies Allergy/AdvReac Type Severity Reaction Status Date / Time codeine Allergy Verified 04/23/24 14:35 morphine Allergy Verified 04/23/24 14:35 Penicillins Allergy Verified 04/23/24 14:35 Review of Systems Review of Systems ROS: Yes All systems reviewed with the patient and are negative except as otherwise documented Exam Vital Signs (past 8 hours): - 04/23/24 10:27 04/23/24 11:45 04/23/24 11:47 Temperature 97.6 F Pulse Rate 106 H 80 Respiratory Rate 16 16 Blood Pressure 122/88 138/85 138/85 Pulse Oximetry 98 Oxygen Delivery Method Room Air Room Air 04/23/24 11:47 04/23/24 12:00 04/23/24 12:30 Temperature Pulse Rate 89 89 69 Respiratory Rate 22 19 Blood Pressure Pulse Oximetry 100 100 99 Oxygen Delivery Method Room Air 04/23/24 13:00 04/23/24 13:30 04/23/24 14:00 Temperature Pulse Rate 88 77 69 Respiratory Rate 20 38 H 14 Blood Pressure Pulse Oximetry 100 97 Oxygen Delivery Method 04/23/24 14:30 04/23/24 14:32 04/23/24 14:32 Temperature Pulse Rate 88 76 Respiratory Rate 23 15 Blood Pressure 135/69 Pulse Oximetry 97 97 Oxygen Delivery Method Room Air 04/23/24 15:00 04/23/24 15:00 04/23/24 15:30 Temperature Pulse Rate 70 Respiratory Rate 21 Blood Pressure 136/76 137/67 Pulse Oximetry 97 Oxygen Delivery Method 04/23/24 15:30 04/23/24 16:00 Temperature Pulse Rate 68 104 H Respiratory Rate 23 24 Blood Pressure Pulse Oximetry 97 100 Oxygen Delivery Method Room Air Oxygen Delivery Method Room Air Narrative Exam Narrative: GENERAL: This is a well-nourished, well-developed patient, in no apparent distress. HEAD: Atraumatic. Normocephalic. No temporal or scalp tenderness. EYES: Pupils equal round and reactive. Extraocular motions intact. No scleral icterus. No injection or drainage. ENT: Mucous membranes pink and moist. NECK: Trachea midline. No JVD, bruits or lymphadenopathy. Supple, FROM, nontender, no meningeal signs. CARDIOVASCULAR: Regular rate and rhythm without murmurs, gallops, or rubs. RESPIRATORY: Clear to auscultation. GASTROINTESTINAL: Abdomen soft, mild epigastric tenderness, nondistended. EXTREMITIES: No clubbing, cyanosis, or edema. BACK: Nontender without deformity or crepitance. No flank tenderness. NEUROLOGIC: Alert, oriented, speech fluent, full upper and lower motor strength, no focal deficits evident. DERMATOLOGIC: No rashes or skin lesions. Objective ECG Impression: Normal sinus rhythm with sinus arrhythmia, biphasic P waves consistent with hypokalemia Prolonged QTc [address] scan - abdomen: Radiologist's impression: Diffusely hypoattenuating liver concerning for hepatitis, although severe hepatic steatosis may also have this appearance. Trace peripancreatic fluid which may be related to acute pancreatitis. Gallbladder distension which is non-specific and may be secondary to nutritional status as there is no evidence of biliary obstruction. 04/23 Chest x-ray: Radiologist's impression: No acute cardiopulmonary abnormality is seen. 04/23 Labs 04/23/24 10:28 04/23/24 10:28 Labs: Laboratory Results - last 24 hr 04/23/24 04/23/24 04/23/24 10:28 10:44 13:36 WBC 5.5 RBC 4.60 Hgb 15.4 Hct 44.0 MCV 95.7 MCH 33.6 MCHC 35.1 RDW 11.9 Plt Count 157 Neut % (Auto) 67.4 Lymph % (Auto) 17.2 L [place] % (Auto) 13.8 Eos % (Auto) 0.3 L Baso % (Auto) 1.3 Neut # (Auto) 3700 Lymph # (Auto) 900 L [place] # (Auto) 800 Eos # (Auto) 0 Baso # (Auto) 100 Sodium 136 L Potassium 2.9 L Chloride 84 L Carbon Dioxide 22 BUN 8 Creatinine 0.76 Estimated GFR > 60 BUN/Creatinine Ratio 10.5 Glucose 96 Calcium 10.5 H Total Bilirubin 3.2 H AST 342 H ALT 171 H Alkaline Phosphatase 168 H Total Protein 9.3 H Albumin 5.2 H Globulin 4.1 Albumin/Globulin Ratio 1.3 Lipase 4793 H Ur Bilirubin Confirm Positive H Urine RBC 0-1/hpf Urine WBC 1-5/hpf Ur Squamous Epith Cells 5-10 /hpf H Urine Bacteria None seen Ur Culture Indicated? Cult not indicated Vol Urine Centrifuged 10ml (spun) U Opiates 300ng/mL cut Negative Ur Oxycodone Screen Negative Urine Methadone Screen Negative Ur Barbiturates Screen Negative U Tricyclic Antidepress Negative Ur Phencyclidine Scrn Negative Ur Amphetamines Screen Negative U Methamphetamines Scrn Negative Ur MDMA Scrn (Ecstasy) Negative U Benzodiazepines Scrn Negative Urine Cocaine Screen Positive H U Marijuana (THC) Screen Positive H Urine pH Normal Urine Specific [place] Normal Ur Creatinine Abnormal A SARS-CoV-2 (PCR) Negative Influenza A (RT-PCR) Flu a negative Influenza B (RT-PCR) Flu b negative RSV (PCR) Negative Assessment & Plan Assessment & Plan narrative: 1. Acute pancreatitis, likely due to alcohol use. Can not rule out ivermectin. 2. Nausea and vomiting, due to 1. 3. Hypokalemia due to nausea and vomiting. 4. EKG changes due to hypokalemia. Replete potassium. Monitor closely. Monitor on telemetry. 5. Question parasitic infection. She has been treating with ivermectin under the direction of a physician. This therapy may need to be reconsidered given pancreatitis. 6. Acute on chronic hepatitis, likely due to alcohol use disorder. Consider further evaluation. This should be followed as an outpatient. 7. DVT prophylaxis: SCDs. 8. Code status: Full code. Her is her surrogate decision maker. Plan: -admit to inpatient. She will likely require midnights of inpatient level care. 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
[2024-04-23] MEDS: LACTATED RINGERS 1,000 ML 100 ML IV (17:33)
[2024-04-23] MEDS: MAGNESIUM SULFATE 2 GM/50 ML PIGGYBACK IV (17:33)
--- NOTE | 2024-04-23 18:35 | PC.NURSE ---
Patient arrived from ED at 1650 this evening VSS, afebrile on RA. She is able to ambulate with steady gait. She reports abd pain 6-7/10 but only able to tolerate minimal clear liquids. States I hadn't been able to eat in 4 days due to vomitting and abd pain. She calls appropriately. Admission assessment completed. She is given k+ IV replacement, and Mg replacement IV. IVF LR at 100 ml/hr. Continuous monitoring.
[2024-04-23] MEDS: HYDROMORPHONE 0.5 MG INJ 1 MG IV (23:29)
[2024-04-24] MEDS: HYDROMORPHONE 1 MG INJ IV ×6 (02:51→21:45)
[2024-04-24 03:00] VITALS: BP 142/92; PULSE 67; RESP 20; TEMP 36.4; O2SAT 96
[2024-04-24] MEDS: LACTATED RINGERS 1,000 ML 100 ML IV ×2 (04:39→17:19)
[2024-04-24 05:37] LABS: Add Manual Diff / Slide Review NO; Basophils Absolute Auto 100 /uL (0-100); Eosinophils Absolute Auto 100 /uL (0-450); Hematocrit 37.1 % (36-46); Hemoglobin 12.9 g/dL (12.0-16.0); Lymphocytes Absolute Auto 700 /uL (1100-4500); Lymphocytes Percent Auto 11.3 % (25-40); Mean Corpuscular HGB Conc 34.8 % (30-36); Mean Corpuscular Hemoglobin 33.8 PG (26-34); Mean Corpuscular Volume 97.2 fL (80-100); Monocytes Absolute Auto 800 /uL (0-900); Monocytes Percent Auto 14.3 % (3-14); Neutrophils Absolute Auto 4200 /uL (1500-7000); Neutrophils Percent Auto 72.4 % (50-75); Platelet Count 125 X10^3/uL (150-400); Red Blood Cell Count 3.82 X10^6/uL (4.0-5.2); White Blood Cell Count 5.9 X10^3/uL (4.5-11.0)
[2024-04-24 05:50] LABS: Alanine Aminotransferase 109 IU/L (<35); Albumin 4.1 g/dL (3.5-5.0); Albumin Globulin Ratio 1.4 (1.0-2.8); Alkaline Phosphatase 112 U/L (38-126); Aspartate Aminotransferase 145 IU/L (14-36); BUN Creatinine Ratio 5.4 (6-22); Bilirubin Total 2.3 mg/dL (0.2-1.3); Blood Urea Nitrogen 3 mg/dL (7-17); Calcium 8.5 mg/dL (8.4-10.2); Carbon Dioxide 23 mmol/L (22-32); Chloride 93 mmol/L (98-107); Estimated Glomerular Filt Rate > 60 mL/min (>60); Globulin 2.9 g/dL (1.7-4.1); Glucose 107 mg/dL (70-100); HEMOLYSIS < 15 (0-50); Magnesium 1.8 mg/dL (1.6-2.3); Potassium 3.2 mmol/L (3.4-5.1); Sodium 133 mmol/L (137-145)
[2024-04-24] MEDS: POTASSIUM CHLORIDE IN WATER 10 MEQ/100 ML PIGGYBACK 100 MEQ IV ×4 (06:55→11:28)
[2024-04-24 08:00] VITALS: BP 135/83; PULSE 64; RESP 12; TEMP 36.6; O2SAT 98
--- NOTE | 2024-04-24 10:21 | PM.PN.1 ---
Subjective Subjective Interval history: S: Somnolent and still has epigatric abdomen pain. No nausea. Exam Vital Signs (past 8 hours): - 04/24/24 03:00 Temperature 97.6 F Pulse Rate 67 Respiratory Rate 20 Blood Pressure 142/92 H Pulse Oximetry 96 Oxygen Flow Rate 0 Oxygen Delivery Method Room Air Oxygen Flow Rate 0 Narrative Exam Narrative: NAD, alert and oriented. Fluent speech. Lungs are clear, normal rate and effort. Heart is regular, no murmur gallop or rub. Abdomen is soft, non distended. Mild epigastric tenderness. Extremities are free of edema. Objective Labs 04/24/24 05:13 04/24/24 05:13 Labs: Laboratory Results - last 24 hr 04/23/24 04/23/24 04/23/24 10:28 10:44 13:36 WBC 5.5 RBC 4.60 Hgb 15.4 Hct 44.0 MCV 95.7 MCH 33.6 MCHC 35.1 RDW 11.9 Plt Count 157 Neut % (Auto) 67.4 Lymph % (Auto) 17.2 L Mayes % (Auto) 13.8 Eos % (Auto) 0.3 L Baso % (Auto) 1.3 Neut # (Auto) 3700 Lymph # (Auto) 900 L Mayes # (Auto) 800 Eos # (Auto) 0 Baso # (Auto) 100 Sodium 136 L Potassium 2.9 L Chloride 84 L Carbon Dioxide 22 BUN 8 Creatinine 0.76 Estimated GFR > 60 BUN/Creatinine Ratio 10.5 Glucose 96 Calcium 10.5 H Magnesium Total Bilirubin 3.2 H AST 342 H ALT 171 H Alkaline Phosphatase 168 H Total Protein 9.3 H Albumin 5.2 H Globulin 4.1 Albumin/Globulin Ratio 1.3 Lipase 4793 H Ur Bilirubin Confirm Positive H Urine RBC 0-1/hpf Urine WBC 1-5/hpf Ur Squamous Epith Cells 5-10 /hpf H Urine Bacteria None seen Ur Culture Indicated? Cult not indicated Vol Urine Centrifuged 10ml (spun) U Opiates 300ng/mL cut Negative Ur Oxycodone Screen Negative Urine Methadone Screen Negative Ur Barbiturates Screen Negative U Tricyclic Antidepress Negative Ur Phencyclidine Scrn Negative Ur Amphetamines Screen Negative U Methamphetamines Scrn Negative Ur MDMA Scrn (Ecstasy) Negative U Benzodiazepines Scrn Negative Urine Cocaine Screen Positive H U Marijuana (THC) Screen Positive H Urine pH Normal Urine Specific [place] Normal Ur Creatinine Abnormal A SARS-CoV-2 (PCR) Negative Influenza A (RT-PCR) Flu a negative Influenza B (RT-PCR) Flu b negative RSV (PCR) Negative 04/24/24 05:13 WBC 5.9 RBC 3.82 L Hgb 12.9 Hct 37.1 MCV 97.2 MCH 33.8 MCHC 34.8 RDW 12.0 Plt Count 125 L Neut % (Auto) 72.4 Lymph % (Auto) 11.3 L Mayes % (Auto) 14.3 H Eos % (Auto) 1.0 L Baso % (Auto) 1.0 Neut # (Auto) 4200 Lymph # (Auto) 700 L Mayes # (Auto) 800 Eos # (Auto) 100 Baso # (Auto) 100 Sodium 133 L Potassium 3.2 L Chloride 93 L Carbon Dioxide 23 BUN 3 L Creatinine 0.56 Estimated GFR > 60 BUN/Creatinine Ratio 5.4 L Glucose 107 H Calcium 8.5 Magnesium 1.8 Total Bilirubin 2.3 H AST 145 H ALT 109 H Alkaline Phosphatase 112 D Total Protein 7.0 Albumin 4.1 Globulin 2.9 Albumin/Globulin Ratio 1.4 Lipase Ur Bilirubin Confirm Urine RBC Urine WBC Ur Squamous Epith Cells Urine Bacteria Ur Culture Indicated? Vol Urine Centrifuged U Opiates 300ng/mL cut Ur Oxycodone Screen Urine Methadone Screen Ur Barbiturates Screen U Tricyclic Antidepress Ur Phencyclidine Scrn Ur Amphetamines Screen U Methamphetamines Scrn Ur MDMA Scrn (Ecstasy) U Benzodiazepines Scrn Urine Cocaine Screen U Marijuana (THC) Screen Urine pH Urine Specific [place] Ur Creatinine SARS-CoV-2 (PCR) Influenza A (RT-PCR) Influenza B (RT-PCR) RSV (PCR) [facility] Medical History Pancreatitis Alcohol abuse History of arteriovenous malformation (AVM) Alcohol use disorder [place] disease Social History household members: spouse Smoking Status: Former smoker alcohol intake: current Assessment & Plan Assessment & Plan narrative: 1. Acute pancreatitis, likely due to alcohol use. Can not rule out ivermectin. 2. Nausea and vomiting, due to 1. 3. Hypokalemia due to nausea and vomiting. 4. EKG changes due to hypokalemia. Replete potassium. Monitor closely. Monitor on telemetry. 5. Question parasitic infection. She has been treating with ivermectin under the direction of a physician. This therapy may need to be reconsidered given pancreatitis. 6. Acute on chronic hepatitis, likely due to alcohol use disorder. Consider further evaluation. This should be followed as an outpatient. 7. DVT prophylaxis: SCDs. 8. Code status: Full code. Her is her surrogate decision maker. Plan: -admitted to inpatient. -Continue IV fluid.s -bowel rest/clear liquid diet. 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 -replete potassium again today. UYEN: 04/25, home. Time-Based Coding :: [TOTAL MINUTES] spent with patient and on the chart (including review of chart, obtaining history, exam, reviewing outside data, placing orders, documenting exam and treatment plan, and counseling patient) on [DATE]. Quality VTE Deep Vein Thrombosis/Pulmonary Embolism Present on Admission: No
[2024-04-24] MEDS: METOCLOPRAMIDE 10 MG/2 ML INJ 5 MG IV (10:23)
[2024-04-24] MEDS: PANTOPRAZOLE 40 MG VIAL IV (10:53)
[2024-04-24 12:00] VITALS: BP 141/90; PULSE 94; RESP 12; TEMP 36.6; O2SAT 97
--- NOTE | 2024-04-24 15:31 | CM.DANOTE ---
Patient is a 48 yo female who was admitted INPT Status on 04/23/24 for Pneumonia/ETOH Pancreatitis. Pt has [employer] for insurance and no PCP. EMR was reviewed. Per MD, pt with hx of ETOH use and UDS+ THC and cocaine. Pt on clears and to slowly advance diet and pain seems better controlled and not stable for d/c yet today but possibly tomorrow if labs stable. SW met bedside with pt and explained role and she confirms she still lives in [place] with her spouse and is independent at baseline and does not use DME to ambulate. Pt states she has been up to the bathroom multiple times in the room independently with steady gait. Pt confirms she is not established with PCP since she moved to [place] but she is likely interested in establishing at [facility] and states her is established with a female PCP at [facility] but cannot remember the Providers name and pt would likely prefer to have the same PCP as her . Pt then began having abdominal pains and requested SW come back tomorrow although pt does not anticipate any needs at d/c and denies any need for JORGE resources or supports at this time. BRYANT Joe Discharge Planning/Care Management CM Discharge Assessment Start: 04/24/24 15:29 Freq: Status: Active Protocol: Document 04/24/24 15:30 BF (Rec: 04/24/24 15:31 BF [id number]) Discharge Planning Assessment Assigned Lip Of Shank Cutter BRYANT Woodard DPOA/Assigned Designee Name informally spouse Advance Directives? No Advance Directives on File No History Provided By Patient,Medical Record Has Patient been admitted in last 30 No days? Comment Last admit few months ago Prior Living Arrangements House Household Members spouse Type of transporation used prior to Relies on Others admit Independent with ADL's Yes Is patient alert and oriented? Yes Caregiver for Another No Barriers to Discharge No Discharge Plan Home Transportation Arrangement Likely spouse Referrals Initiated None needed Additional Comment Declines resources at this time Whiteboard Updated in Patient Room with Yes name and ext. # of [employer] Of [employer] Review Status In Process Please Provide Date Initial DC 04/24/24 Assessment Was Performed Next Review Type Continued Stay Review
--- NOTE | 2024-04-24 17:33 | PC.NURSE ---
Patient attempting a couple sips of broth this evening and a couple bites of jello. She reports That was a bad idea and 10/10 pain immediately afterwards. Pain well controlled with PRN 1 mg IV dilaudid. Continuous monitoring.
[2024-04-24 20:00] VITALS: BP 158/98; PULSE 69; RESP 17; TEMP 36.4; O2SAT 98
[2024-04-25] MEDS: HYDROMORPHONE 1 MG INJ IV ×2 (00:19→05:35)
[2024-04-25] MEDS: LACTATED RINGERS 1,000 ML 100 ML IV (04:08)
[2024-04-25 06:03] LABS: Calcium 9.1 mg/dL (8.4-10.2); Carbon Dioxide 30 mmol/L (22-32); Chloride 90 mmol/L (98-107); Estimated Glomerular Filt Rate > 60 mL/min (>60); Glucose 100 mg/dL (70-100); HEMOLYSIS < 15 (0-50); Magnesium 1.5 mg/dL (1.6-2.3); Sodium 134 mmol/L (137-145)
[2024-04-25 06:06] LABS: BUN Creatinine Ratio 4.1 (6-22); Blood Urea Nitrogen < 2 mg/dL (7-17)
[2024-04-25 06:08] LABS: Potassium 2.7 mmol/L (3.4-5.1)
[2024-04-25] MEDS: LORazepam 2 MG/ML INJ 0.5 MG IV (07:53)
[2024-04-25 08:00] VITALS: BP 170/98; PULSE 68; RESP 21; TEMP 36.6; O2SAT 100
[2024-04-25] MEDS: POTASSIUM CHLORIDE IN WATER 10 MEQ/100 ML PIGGYBACK 100 MEQ IV ×6 (08:13→18:16)
[2024-04-25 08:45] VITALS: BP 155/114; PULSE 146; RESP 24; TEMP 36.7
[2024-04-25 09:20] VITALS: BP 111/73; PULSE 67; RESP 18
[2024-04-25] MEDS: PANTOPRAZOLE 40 MG VIAL IV (10:01)
[2024-04-25] MEDS: MAGNESIUM SULFATE 2 GM/50 ML PIGGYBACK IV (10:01)
--- NOTE | 2024-04-25 10:05 | PM.PN.1 ---
Subjective Subjective Interval history: Summary: Admitted with alcohol use disorder, pancreatitis, and alcohol withdrawal. S: She was seeing spots this morning and very shaky. She was given Ativan and improved dramatically within several minutes. Exam Vital Signs (past 8 hours): - 04/25/24 08:00 Temperature 97.9 F Pulse Rate 68 Respiratory Rate 21 Blood Pressure 170/98 H Pulse Oximetry 100 Oxygen Flow Rate 0 Oxygen Delivery Method Room Air Oxygen Flow Rate 0 Narrative Exam Narrative: NAD, alert and oriented. Fluent speech. Lungs are clear, normal rate and effort. Heart is regular, no murmur gallop or rub. Abdomen is soft, non distended. Extremities are free of edema. Neuro: Alert and oriented, fluent speech. No shaking after Ativan. Normal motor strength. Speech is normal. Objective Imaging CT scan - abdomen: Radiologist's impression: Diffusely hypoattenuating liver concerning for hepatitis, although severe hepatic steatosis may also have this appearance. Trace peripancreatic fluid which may be related to acute pancreatitis. Gallbladder distension which is non-specific and may be secondary to nutritional status as there is no evidence of biliary obstruction. Labs 04/24/24 05:13 04/25/24 05:29 Labs: Laboratory Results - last 24 hr 04/25/24 05:29 Sodium 134 L Potassium 2.7 L* Chloride 90 L Carbon Dioxide 30 BUN < 2 L Creatinine 0.49 L Estimated GFR > 60 BUN/Creatinine Ratio 4.1 L Glucose 100 Calcium 9.1 Magnesium 1.5 L [facility] Medical History Pancreatitis Alcohol abuse History of arteriovenous malformation (AVM) Alcohol use disorder [place] disease Social History household members: spouse Smoking Status: Former smoker alcohol intake: current Assessment & Plan Assessment & Plan narrative: 1. Acute pancreatitis, likely due to alcohol use. Present on admission and active. 2. Nausea and vomiting, due to 1. Present on admission and improving. 3. Hypokalemia due to nausea and vomiting. Present on admission and active. 4. EKG changes due to hypokalemia. Replete potassium. Monitor closely. Monitor on telemetry. Present on admission and active. 5. Question parasitic infection. She has been treating with ivermectin under the direction of a physician. This therapy may need to be reconsidered given pancreatitis. 6. Acute on chronic hepatitis, likely due to alcohol use disorder. Consider further evaluation. This should be followed as an outpatient. 7. Acute alcohol withdrawal, new and active. DVT prophylaxis: SCDs. Code status: Full code. Her is her surrogate decision maker. Plan: -Continue IV fluids .-CIWA. -Start Librium 10 TID. -advance diet. -clinical research monitor. -replete potassium again today. UYEN: 04/26-, home. Time-Based Coding :: [TOTAL MINUTES] spent with patient and on the chart (including review of chart, obtaining history, exam, reviewing outside data, placing orders, documenting exam and treatment plan, and counseling patient) on [DATE]. Quality VTE Deep Vein Thrombosis/Pulmonary Embolism Present on Admission: No
--- NOTE | 2024-04-25 10:57 | CM.DPC ---
DCP Cont. Reviewed EMR and team rounds for status updates. Per Hospitalist, pt is now demonstrating some symptoms of withdrawal. Treating sx. UYEN: 04/26
[2024-04-25] MEDS: chlordiazePOXIDE 10 MG CAPSULE PO ×2 (11:23→16:37)
--- NOTE | 2024-04-25 11:51 | EKG_ITS ---
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
--- NOTE | 2024-04-25 11:52 | PC.NURSE ---
Pt arousable, conversant. B/p noted to be elevated, Pt became shaky, diaphoretic, and started to have emesis. Dr. Hudson and Coordinator called to room VS's on 30 minuite checks to 09:00 B/p and pulse settled to 67 111/72. Dr. Hudson ordered Ativan 0.5 with a repeat dose in 1/2 hour if needed. second ativan not needed. Pt more restful, states she feels better. Ciwa now zero. Pt up doing ADL's with minimal assistance. Pt relaxed and comfortable through morning. Up to Shower. K+ riders and Mag given as ordered.
[2024-04-25 12:00] VITALS: BP 138/71; PULSE 71; RESP 12; TEMP 36.4; O2SAT 94
[2024-04-25] MEDS: MULTIVITAMIN 1 TABLET 1 TAB PO (12:50)
[2024-04-25] MEDS: FOLIC ACID 1 MG TABLET PO (12:50)
[2024-04-25] MEDS: THIAMINE 100 MG TABLET PO (12:50)
[2024-04-25 16:00] VITALS: BP 144/99; PULSE 107; RESP 12; TEMP 37; O2SAT 98
[2024-04-25 18:22] LABS: Troponin I < 0.012 ng/mL (0.01-0.034)
[2024-04-25 20:00] VITALS: BP 147/102; PULSE 102; RESP 16; TEMP 36.9; O2SAT 98
[2024-04-25 20:47] LABS: HEMOLYSIS < 15 (0-50); Magnesium 1.9 mg/dL (1.6-2.3); Potassium 3.3 mmol/L (3.4-5.1)
--- NOTE | 2024-04-25 21:26 | PC.NURSE ---
NOC Shift Note- Patient left AMA at 2117. AMA paperwork signed. Kriders had finished and lab work to recheck K+ level drawn and back. Sent Dr. Hudson a message on [employer] (pt had said he told her earlier when she asked about going home that she needed to finish to krider and get blood rechecked first). Dr. Hudson said he wanted gher to stay until tomorrow. Advised patient what Dr. Hudson said and patient decided to go AMA. IV lines taken out, patient dressed and packed up personal belonging, signed paperwork, and left AMA at 2117
== END 2024-04-25 21:18 | disposition left against medical advice (07) | DRG 282 ==
LOC: ED 16:11 → AC 16:11
PROVIDERS: Hospitalist; Admitting Provider Internal Medicine; Emergency Provider Emergency Medicine; PCP Internal Medicine; Referring Provider Emergency Medicine; Visit Provider Internal Medicine
DX: K85.20 Alcohol induced acute pancreatitis without necrosis or infection (principal); F10.139 Alcohol abuse with withdrawal, unspecified; K70.10 Alcoholic hepatitis without ascites; B89 Unspecified parasitic disease; E87.6 Hypokalemia; R94.31 Abnormal electrocardiogram [ECG] [EKG]; Z53.29 Procedure and treatment not carried out because of patient's decision for other reasons
CPT/HCPCS: 0241U; 36415; 71045; 74177; 80048; 80053; 80305; 81003; 81015; 81025; 83690; 83735; 84132; 84484; 85025; 93005; 96361; 96365; 96366; 96375; 96376; 99284; J1171; J2060; J2405; J2470; J2765; J3475; Q9967

== ENCOUNTER 2024-06-19 04:54 | Emergency (ER) | payer OTHER, SELFPAY ==
[2024-04-23 16:13] VITALS: BMI 22.8
[2024-06-19] VITALS (8 sets, daily range): BP systolic 135–150; BP diastolic 77–90; PULSE 96–127; RESP 14–24; TEMP 36.2; O2SAT 97–100
--- NOTE | 2024-06-19 05:11 | ED_ITS ---
HPI - Trauma <Дмитрий Manjarrez, DO - Last Filed: 06/19/24 06:52> General Chief Complaint: Abdominal Pain Stated Complaint: L flank pain Time Seen by Provider: 06/19/24 05:00 Source: patient and EMS Mode of arrival: EMS History of Present Illness HPI narrative: 40-year-old female history of Gilbert's disease alcohol use presents tonight via EMS for fall sustained earlier yesterday morning at 6:00 a.m. when she accidentally tripped and fell and hit her head against the ground thinks she may have lost consciousness but unsure. Patient reports she did drink later in the day just 1 alcoholic beverage. Patient denies chest, neck, arm or leg pain, diarrhea, constipation, blood in the urine or stool. EMS brought her in gave her Zofran fentanyl prior to arrival and she is now complaining of left flank, left upper and left lower quadrant abdomen pain and is having multiple episodes of dry heaving at time of exam. Other than what is stated 14 point review of system is negative. Related Data Home Medications Medication Instructions Recorded Confirmed ashlatagandha extract 120 mg capsule 120 mg PO DAILY 04/23/24 04/23/24 omeprazole 20 mg tablet,delayed 20 mg PO DAILY 04/23/24 04/23/24 release Previous Rx's Medication Instructions Recorded hydrocodone 5 mg-acetaminophen 325 1 tab PO Q6H PRN pain #20 tabs 25 mg tablet ondansetron 4 mg disintegrating 4 mg PO Q8H PRN nausea and 06/19/24 tablet vomiting #30 tabs potassium chloride 20 mEq 20 meq PO BID #8 tabs 06/19/24 tablet,extended release Allergies Allergy/AdvReac Type Severity Reaction Status Date / Time codeine Allergy Verified 04/23/24 14:35 morphine Allergy Verified 04/23/24 14:35 Penicillins Allergy Rash Verified 04/24/24 16:27 Review of Systems <Дмитрий Manjarrez, DO - Last Filed: 06/19/24 06:52> Review of Systems ROS Unobtainable: All systems reviewed & are unremarkable except as noted in HPI and below Patient History <Дмитрий Manjarrez DO - Last Filed: 06/19/24 06:52> Medical History Pancreatitis Alcohol abuse History of arteriovenous malformation (AVM) Alcohol use disorder [place] disease Social History household members: spouse alcohol intake: current alcohol intake frequency: 3 or more drinks per day Exam <Дмитрий Manjarrez, DO - Last Filed: 06/19/24 06:52> Narrative Exam Narrative: GENERAL: [48] year old patient appears stated age. Well-developed patient, in mild distress. HEAD: Atraumatic. Normocephalic. EYES: Pupils equal round and reactive. Extraocular motions intact. No scleral icterus. No injection or drainage. ENT: Nose without bleeding, purulent drainage. Throat without erythema, tonsillar hypertrophy or exudate. Airway patent. NECK: Trachea midline. Non tender CARDIOVASCULAR: Regular rate and rhythm without murmurs, gallops, or rubs. RESPIRATORY: Faint wheeze throughout b/l. GASTROINTESTINAL: Abdomen soft, epigastric and LUQ TTP, nondistended. EXTREMITIES: No edema or joint tenderness. BACK: Nontender without deformity or crepitance. No flank tenderness. NEURO: AOx3.GCS 15 nonfocal neuro exam SKIN: No rash or erythema of visible areas Initial Vital Signs Initial Vital Signs: Vital Signs Temperature 97.1 F L 06/19/24 05:01 Pulse Rate 106 H 06/19/24 05:01 Respiratory Rate 24 06/19/24 05:01 Blood Pressure 135/77 06/19/24 05:01 Pulse Oximetry 98 06/19/24 05:01 Oxygen Delivery Method Room Air 06/19/24 05:01 <Melida Magana, DO - Last Filed: 06/19/24 08:33> Initial Vital Signs Initial Vital Signs: Vital Signs Temperature 97.1 F L 06/19/24 05:01 Pulse Rate 106 H 06/19/24 05:01 Respiratory Rate 24 06/19/24 05:01 Blood Pressure 135/77 06/19/24 05:01 Pulse Oximetry 98 06/19/24 05:01 Oxygen Delivery Method Room Air 06/19/24 05:01 Course <Дмитрий Manjarrez, DO - Last Filed: 06/19/24 06:52> Orders Ordered: ED Orders 06/19/24 05:00 Complete Blood Count AUTO DIFF Stat Comprehensive Metabolic Panel Stat Ethanol (ETOH) Stat Lipase Stat Magnesium Stat Troponin I Stat 06/19/24 05:11 CT Trauma Chest Abdomen Pelvis Stat 06/19/24 05:14 CT head/brain wo con Stat 06/19/24 05:23 EKG-12 Lead Stat 06/19/24 06:25 Urine Drug Screen, Rapid Stat Discontinued Medications Diphenhydramine HCl (Diphenhydramine 50 Mg/Ml Vial) 50 mg IV NOW ONE Stop: 06/19/24 05:12 Last Admin: 06/19/24 05:21 Dose: 50 mg Documented By: KACEY Droperidol (Droperidol 2.5 Mg/Ml Vial) 2.5 mg IV NOW ONE Stop: 06/19/24 05:15 Last Admin: 06/19/24 05:21 Dose: 2.5 mg Documented By: KACEY Sodium Chloride (Normal Saline 0.9%) 1,000 mls @ 1,000 mls/hr IV BOLUS ONE Stop: 06/19/24 06:10 Last Infusion: 06/19/24 06:53 Dose: Infused Documented By: Admin: 06/19/24 05:20 Dose: 1,000 mls/hr Documented By: KACEY POTASSIUM CHLORIDE IN WATER (Potassium Cl 10 Meq/100 Ml Ashley) 10 meq in 100 mls @ 100 mls/hr IV Q1H [facility] Stop: 06/19/24 09:44 Last Admin: 06/19/24 06:56 Dose: Not Given Documented By: Admin: 06/19/24 06:55 Dose: Not Given Documented By: Infusion: 06/19/24 06:53 Dose: Infused Documented By: Admin: 06/19/24 05:44 Dose: 100 mls/hr Documented By: KACEY Potassium Chloride (Potassium Chloride 20 Meq Tab) 40 meq PO NOW ONE Stop: 06/19/24 06:58 Last Admin: 06/19/24 07:01 Dose: 40 meq Documented By: KACEY Vital Signs Vital signs: Vital Signs - 8 hr 06/19/24 05:01 06/19/24 05:01 06/19/24 05:02 Temperature 97.1 F L Pulse Rate 106 H 114 H 114 H Respiratory Rate 24 Blood Pressure 135/77 Pulse Oximetry 98 98 98 Oxygen Delivery Method Room Air 06/19/24 05:02 06/19/24 05:30 06/19/24 05:30 Temperature Pulse Rate 102 H Respiratory Rate Blood Pressure 135/77 143/86 H Pulse Oximetry 97 Oxygen Delivery Method 06/19/24 06:02 06/19/24 06:07 06/19/24 06:07 Temperature Pulse Rate 127 H 105 H Respiratory Rate 17 Blood Pressure 150/90 H Pulse Oximetry 98 100 Oxygen Delivery Method 06/19/24 06:29 06/19/24 06:29 06/19/24 06:30 Temperature Pulse Rate 96 H 96 H Respiratory Rate 14 14 Blood Pressure 149/90 H Pulse Oximetry 100 100 Oxygen Delivery Method 06/19/24 06:30 06/19/24 07:00 06/19/24 07:00 Temperature Pulse Rate 99 H Respiratory Rate 16 Blood Pressure 150/85 H 142/80 H Pulse Oximetry 100 Oxygen Delivery Method <Melida Magana DO - Last Filed: 06/19/24 08:33> Orders Ordered: ED Orders 06/19/24 05:00 Complete Blood Count AUTO DIFF Stat Comprehensive Metabolic Panel Stat Ethanol (ETOH) Stat Lipase Stat Magnesium Stat Troponin I Stat 06/19/24 05:11 CT Trauma Chest Abdomen Pelvis Stat 06/19/24 05:14 CT head/brain wo con Stat 06/19/24 05:23 EKG-12 Lead Stat 06/19/24 06:25 Urine Drug Screen, Rapid Stat Discontinued Medications Diphenhydramine HCl (Diphenhydramine 50 Mg/Ml Vial) 50 mg IV NOW ONE Stop: 06/19/24 05:12 Last Admin: 06/19/24 05:21 Dose: 50 mg Documented By: KACEY Droperidol (Droperidol 2.5 Mg/Ml Vial) 2.5 mg IV NOW ONE Stop: 06/19/24 05:15 Last Admin: 06/19/24 05:21 Dose: 2.5 mg Documented By: KACEY Sodium Chloride (Normal Saline 0.9%) 1,000 mls @ 1,000 mls/hr IV BOLUS ONE Stop: 06/19/24 06:10 Last Infusion: 06/19/24 06:53 Dose: Infused Documented By: Admin: 06/19/24 05:20 Dose: 1,000 mls/hr Documented By: KACEY POTASSIUM CHLORIDE IN WATER (Potassium Cl 10 Meq/100 Ml Ashley) 10 meq in 100 mls @ 100 mls/hr IV Q1H [facility] Stop: 06/19/24 09:44 Last Admin: 06/19/24 06:56 Dose: Not Given Documented By: Admin: 06/19/24 06:55 Dose: Not Given Documented By: Infusion: 06/19/24 06:53 Dose: Infused Documented By: Admin: 06/19/24 05:44 Dose: 100 mls/hr Documented By: KACEY Potassium Chloride (Potassium Chloride 20 Meq Tab) 40 meq PO NOW ONE Stop: 06/19/24 06:58 Last Admin: 06/19/24 07:01 Dose: 40 meq Documented By: KACEY Vital Signs Vital signs: Vital Signs - 8 hr 06/19/24 05:01 06/19/24 05:01 06/19/24 05:02 Temperature 97.1 F L Pulse Rate 106 H 114 H 114 H Respiratory Rate 24 Blood Pressure 135/77 Pulse Oximetry 98 98 98 Oxygen Delivery Method Room Air 06/19/24 05:02 06/19/24 05:30 06/19/24 05:30 Temperature Pulse Rate 102 H Respiratory Rate Blood Pressure 135/77 143/86 H Pulse Oximetry 97 Oxygen Delivery Method 06/19/24 06:02 06/19/24 06:07 06/19/24 06:07 Temperature Pulse Rate 127 H 105 H Respiratory Rate 17 Blood Pressure 150/90 H Pulse Oximetry 98 100 Oxygen Delivery Method 06/19/24 06:29 06/19/24 06:29 06/19/24 06:30 Temperature Pulse Rate 96 H 96 H Respiratory Rate 14 14 Blood Pressure 149/90 H Pulse Oximetry 100 100 Oxygen Delivery Method 06/19/24 06:30 06/19/24 07:00 06/19/24 07:00 Temperature Pulse Rate 99 H Respiratory Rate 16 Blood Pressure 150/85 H 142/80 H Pulse Oximetry 100 Oxygen Delivery Method MDM - Trauma <Дмитрий Manjarrez, DO - Last Filed: 06/19/24 06:52> Lab Data 06/19/24 05:00 06/19/24 05:00 Labs: Lab Results 06/19/24 06/19/24 Range/Units 05:00 06:25 WBC 6.6 (4.5-11.0) X10^3/uL RBC 4.04 (4.0-5.2) X10^6/uL Hgb 14.0 (12.0-16.0) g/dL Hct 39.4 (36-46) % MCV 97.5 (80-100) fL MCH 34.7 H (26-34) PG MCHC 35.6 (30-36) % RDW 12.3 (11.6-14.8) % Plt Count 186 (150-400) X10^3/uL Neut % (Auto) 66.8 (50-75) % Lymph % (Auto) 12.7 L (25-40) % Terrell % (Auto) 13.9 (3-14) % Eos % (Auto) 2.0 (2-4) % Baso % (Auto) 4.6 H (0-2) % Neut # (Auto) 4400 (6287-7649) /uL Lymph # (Auto) 800 L (2559-6278) /uL Terrell # (Auto) 900 (0-900) /uL Eos # (Auto) 100 (0-450) /uL Baso # (Auto) 300 H (0-100) /uL Sodium 133 L (137-145) mmol/L Potassium 2.6 L* (3.4-5.1) mmol/L Chloride 89 L (98-107) mmol/L Carbon Dioxide 26 (22-32) mmol/L BUN 5 L (7-17) mg/dL Creatinine 0.73 (0.52-1.04) mg/dL Estimated GFR > 60 (>60) mL/min BUN/Creatinine Ratio 6.8 (6-22) Glucose 117 H (70-99) mg/dL Calcium 9.7 (8.4-10.2) mg/dL Magnesium 1.6 (1.6-2.3) mg/dL Total Bilirubin 2.3 H (0.2-1.3) mg/dL AST 346 H (14-36) IU/L ALT 174 H (<35) IU/L Alkaline Phosphatase 125 (38-126) U/L Troponin I < 0.012 (0.01-0.034) ng/mL Total Protein 8.4 H (6.3-8.2) g/dL Albumin 4.9 (3.5-5.0) g/dL Globulin 3.5 (1.7-4.1) g/dL Albumin/Globulin Ratio 1.4 (1.0-2.8) Lipase 1553 H (23-300) U/L U Opiates 300ng/mL cut Negative (Negative) Ur Oxycodone Screen Negative (Negative) Urine Methadone Screen Negative (Negative) Ur Barbiturates Screen Negative (Negative) U Tricyclic Antidepress Negative (Negative) Ur Phencyclidine Scrn Negative (Negative) Ur Amphetamines Screen Negative (Negative) U Methamphetamines Scrn Negative (Negative) Ur MDMA Scrn (Ecstasy) Negative (Negative) U Benzodiazepines Scrn Negative (Negative) Urine Cocaine Screen Positive H (Negative) U Marijuana (THC) Screen Positive H (Negative) Urine pH Normal (Normal) Urine Specific [place] Normal (Normal) Ethyl Alcohol 123 H ( - 10) mg/dL Ur Creatinine Normal (Normal) Urine Dip Bedside Urine Glucose Negative Bedside Urine Bilirubin - Negative Bedside Urine Ketone - Negative Urine Specific [place] 1.005 Bedside Urine Occult Blood - Negative Bedside Urine pH 6.5 Bedside Urine Protein - Negative Bedside Urine Urobilinogen - Negative Bedside Urine Nitrite - Negative Bedside Urine Leukocytes - Negative Esterase ECG Data Interpretation: Sinus Tach HR 106 AK 152 QRS [address]-t wave change [id number] Change from 04/25/24 MDM Narrative Medical decision making narrative: All lab work vital signs nurse triage note medication list previous ER visits and previous imaging studies including current ones all reviewed. Patient was given K rider IV droperidol and Benadryl and 1 L bolus normal saline. Patient is no longer actively vomiting or dry heaving at this time and feels much better. Patient was offered admission but she declined and would like to go home instead. Differential diagnosis includes subdural hemorrhage pneumothorax rib fractures spleen rupture pancreatitis in the electrolyte derangement. Patient will be discharged home on [place] Zofran and potassium pills. She will be started on a clear liquid diet and to advance as tolerated. <Melida Magana, DO - Last Filed: 06/19/24 08:33> Lab Data Labs: Lab Results 06/19/24 06/19/24 Range/Units 05:00 06:25 WBC 6.6 (4.5-11.0) X10^3/uL RBC 4.04 (4.0-5.2) X10^6/uL Hgb 14.0 (12.0-16.0) g/dL Hct 39.4 (36-46) % MCV 97.5 (80-100) fL MCH 34.7 H (26-34) PG MCHC 35.6 (30-36) % RDW 12.3 (11.6-14.8) % Plt Count 186 (150-400) X10^3/uL Neut % (Auto) 66.8 (50-75) % Lymph % (Auto) 12.7 L (25-40) % Terrell % (Auto) 13.9 (3-14) % Eos % (Auto) 2.0 (2-4) % Baso % (Auto) 4.6 H (0-2) % Neut # (Auto) 4400 (1662-4981) /uL Lymph # (Auto) 800 L (4011-7873) /uL Terrell # (Auto) 900 (0-900) /uL Eos # (Auto) 100 (0-450) /uL Baso # (Auto) 300 H (0-100) /uL Sodium 133 L (137-145) mmol/L Potassium 2.6 L* (3.4-5.1) mmol/L Chloride 89 L (98-107) mmol/L Carbon Dioxide 26 (22-32) mmol/L BUN 5 L (7-17) mg/dL Creatinine 0.73 (0.52-1.04) mg/dL Estimated GFR > 60 (>60) mL/min BUN/Creatinine Ratio 6.8 (6-22) Glucose 117 H (70-99) mg/dL Calcium 9.7 (8.4-10.2) mg/dL Magnesium 1.6 (1.6-2.3) mg/dL Total Bilirubin 2.3 H (0.2-1.3) mg/dL AST 346 H (14-36) IU/L ALT 174 H (<35) IU/L Alkaline Phosphatase 125 (38-126) U/L Troponin I < 0.012 (0.01-0.034) ng/mL Total Protein 8.4 H (6.3-8.2) g/dL Albumin 4.9 (3.5-5.0) g/dL Globulin 3.5 (1.7-4.1) g/dL Albumin/Globulin Ratio 1.4 (1.0-2.8) Lipase 1553 H (23-300) U/L U Opiates 300ng/mL cut Negative (Negative) Ur Oxycodone Screen Negative (Negative) Urine Methadone Screen Negative (Negative) Ur Barbiturates Screen Negative (Negative) U Tricyclic Antidepress Negative (Negative) Ur Phencyclidine Scrn Negative (Negative) Ur Amphetamines Screen Negative (Negative) U Methamphetamines Scrn Negative (Negative) Ur MDMA Scrn (Ecstasy) Negative (Negative) U Benzodiazepines Scrn Negative (Negative) Urine Cocaine Screen Positive H (Negative) U Marijuana (THC) Screen Positive H (Negative) Urine pH Normal (Normal) Urine Specific [place] Normal (Normal) Ethyl Alcohol 123 H ( - 10) mg/dL Ur Creatinine Normal (Normal) Urine Dip Bedside Urine Glucose Negative Bedside Urine Bilirubin - Negative Bedside Urine Ketone - Negative Urine Specific [place] 1.005 Bedside Urine Occult Blood - Negative Bedside Urine pH 6.5 Bedside Urine Protein - Negative Bedside Urine Urobilinogen - Negative Bedside Urine Nitrite - Negative Bedside Urine Leukocytes - Negative Esterase MDM Narrative Medical decision making narrative: All lab work vital signs nurse triage note medication list previous ER visits and previous imaging studies including current ones all reviewed. Patient was given K rider IV droperidol and Benadryl and 1 L bolus normal saline. Patient is no longer actively vomiting or dry heaving at this time and feels much better. Patient was offered admission but she declined and would like to go home instead. Differential diagnosis includes subdural hemorrhage pneumothorax rib fractures spleen rupture pancreatitis in the electrolyte derangement. Patient will be discharged home on [place] Zofran and potassium pills. She will be started on a clear liquid diet and to advance as tolerated. 0832 Dr. Magana-Dr. [facility] called concerning for necrotizing pancreatitis. CT over-read this morning shows altered parenchymal enhancement near pancreatic tail may represent small area of necrosis. Suspect acute necrotic collection is seen measuring 3.3 x 1.1. I called patient at [phone] left voicemail indicating she needs to come back to the emergency department for probable admission. He was also noted that her lipase is 1550 Discharge Plan Departure Patient Disposition: Home Clinical Impression: Hypokalemia Acute alcoholic pancreatitis Qualifiers: Acute pancreatitis complication: uninfected necrosis Qualified Code(s): K85.21 - Alcohol induced acute pancreatitis with uninfected necrosis Instructions: DI for Pancreatitis Activity Restrictions/Additional Instructions: Return with new or worsening symptoms. Take your medicines as directed. Clear liquid diet advance as tolerated. Avoid alcohol at this time. Follow up with PCP in 1 week time for re-evaluation Prescriptions: New hydrocodone-acetaminophen 5-325 mg tablet 1 tab PO Q6H PRN (Reason: pain) Qty: 20 0RF ondansetron 4 mg tablet,disintegrating 4 mg PO Q8H PRN (Reason: nausea and vomiting) Qty: 30 0RF potassium chloride 20 mEq tablet extended release 20 meq PO BID Qty: 8 0RF No Action omeprazole 20 mg Tablet,Delayed Release (Dr/Ec) 20 mg PO DAILY ashwagandha extract 120 mg Capsule 120 mg PO DAILY Referrals: Miscellaneous,Doctor, MD [Primary Care Provider] - Stand Alone Forms: Patient Portal/API/Survey
--- NOTE | 2024-06-19 05:11 | DI.CT.S_ITS ---
PROCEDURE: CT TRAUMA CHEST ABDOMEN PELVIS INDICATIONS: Fall, flank pain TECHNIQUE: MDCT axial chest images were obtained with IV contrast in the arterial phase. Maximum intensity projections and multiplanar reformats were obtained. MDCT axial abdomen and pelvis images were obtained with IV contrast in the portal venous phase. Multiplanar reformats were obtained. Optional delayed phase scanning may also be obtained Advanced techniques were used to lower patient radiation exposure. COMPARISON:[facility], CT, CT CHEST ABD PEL W CON, 02/12/2023, 7:50. [facility], CT, CT ABDOMEN PELVIS W CON, 04/23/2024, 10:42. FINDINGS Image Quality: Diagnostic. Chest: Lungs and pleura: No pneumothorax or hemothorax. No pulmonary contusions or lacerations. No solid pulmonary nodule requiring follow-up. Vascular: No dissection or pseudoaneurysm. No incidental central pulmonary embolism. No hemopericardium. Aberrant course of the right subclavian artery. Mediastinum: No mediastinum hematoma. No suspicious mass or lymph nodes. No actionable thyroid nodules. Chest wall: Intact clavicles, scapula, and glenohumeral joint. No displaced rib fractures. Breast implants. Thoracic spine: No acute fracture or traumatic subluxation. ABDOMEN and PELVIS: Liver: No laceration or capsular hematoma. Steatosis. Gallbladder: Unremarkable. Biliary system: Non-dilated. Pancreas: Peripancreatic fat stranding. Small cystic foci within the pancreatic tail. Pancreatic ductal dilation is present measuring up to 5 mm. Small fluid collection is seen near the pancreatic tail measuring 3.3 x 1.1 cm. Adjacent altered parenchymal enhancement is seen. Spleen: No laceration or capsular hematoma. Adrenals: No suspicious nodules. Kidneys: No contrast extravasation or hydronephrosis. No solid masses. Vessels and lymph nodes: No pathology lymph nodes by size criteria. No dissection or aneurysm. No retroperitoneal hematoma. Bowel and peritoneum: No suspicious region of mesenteric hemorrhage or hemoperitoneum. No bowel obstruction. Pelvis: Small amount pelvic free fluid may be physiologic. Probable follicular cysts in the ovaries. Bladder is unremarkable. Pelvic ring and femurs: No pelvic ring disruption. No hip fractures. Lumbar spine: No acute fracture or traumatic subluxation. Abdominal wall: No drainable fluid collection or hematoma. IMPRESSION: No acute traumatic injury to the chest, abdomen, or pelvis. Suspected pancreatitis. Altered parenchymal enhancement near the pancreatic tail may represent small area of necrosis. Suspected acute necrotic collection is seen measuring 3.3 x 1.1 cm near the pancreatic tail. There is also ductal dilation. Follow-up pancreas protocol MRI and/or MRCP suggested to evaluate for resolution. Hepatic steatosis. Other findings above. Changes to the preliminary report communicated to Dr. Magana. Dictated by: Uriel Carroll M.D. on 06/19/2024 at 8:05 Approved by: Uriel Carroll M.D. on 06/19/2024 at 8:22
--- NOTE | 2024-06-19 05:14 | DI.CT.S_ITS ---
PROCEDURE: CT HEAD/BRAIN WO CON INDICATIONS: trauma TECHNIQUE: Noncontrast 4.5 mm thick angled axial sections acquired from the foramen magnum to the vertex, with coronal and sagittal reformats. For radiation dose reduction, the following was used: automated exposure control, adjustment of mA and/or kV according to patient size. COMPARISON: [facility], CT, CT HEAD/BRAIN WO CON, 02/12/2023, 7:50. FINDINGS: Image quality: Diagnostic. CSF spaces: Basal cisterns are patent. No extra-axial fluid collections. Ventricles are normal in size and shape. Brain: No midline shift. No intracranial mass effect or hemorrhage. Gallegos-white matter interface is normal. There is a round hypodensity present in the central [place]ola which was not present on the previous study, and is consistent with interval lacunar infarction, chronic. Skull and face: Calvarium and visualized facial bones are intact, without suspicious lesions. Sinuses: Visualized sinuses and mastoids are clear. IMPRESSION: 1. 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 It is now chronic. 2. No acute intracranial findings identified. Comment: Final report is concordant with preliminary interpretation provided by [facility]. Dictated by: Harpreet Hand M.D. on 06/19/2024 at 7:46 Approved by: Harpreet Hand M.D. on 06/19/2024 at 7:48
[2024-06-19] MEDS: SODIUM CHLORIDE 0.9% 1,000 ML 1000 ML IV (05:20)
[2024-06-19] MEDS: diphenhydrAMINE 50 MG/ML VIAL IV (05:21)
[2024-06-19] MEDS: droPERidol 2.5 MG/ML VIAL IV (05:21)
[2024-06-19 05:29] LABS: Add Manual Diff / Slide Review NO; Basophils Absolute Auto 300 /uL (0-100); Basophils Percent Auto 4.6 % (0-2); Eosinophils Absolute Auto 100 /uL (0-450); Hematocrit 39.4 % (36-46); Lymphocytes Absolute Auto 800 /uL (1100-4500); Lymphocytes Percent Auto 12.7 % (25-40); Mean Corpuscular HGB Conc 35.6 % (30-36); Mean Corpuscular Hemoglobin 34.7 PG (26-34); Mean Corpuscular Volume 97.5 fL (80-100); Monocytes Absolute Auto 900 /uL (0-900); Monocytes Percent Auto 13.9 % (3-14); Neutrophils Absolute Auto 4400 /uL (1500-7000); Neutrophils Percent Auto 66.8 % (50-75); Platelet Count 186 X10^3/uL (150-400); Red Blood Cell Count 4.04 X10^6/uL (4.0-5.2); Red Cell Distribution Width 12.3 % (11.6-14.8); White Blood Cell Count 6.6 X10^3/uL (4.5-11.0)
[2024-06-19 05:32] LABS: Ethanol (ETOH) 123 mg/dL
[2024-06-19 05:33] LABS: Alanine Aminotransferase 174 IU/L (<35); Albumin 4.9 g/dL (3.5-5.0); Albumin Globulin Ratio 1.4 (1.0-2.8); Alkaline Phosphatase 125 U/L (38-126); Aspartate Aminotransferase 346 IU/L (14-36); BUN Creatinine Ratio 6.8 (6-22); Bilirubin Total 2.3 mg/dL (0.2-1.3); Blood Urea Nitrogen 5 mg/dL (7-17); Calcium 9.7 mg/dL (8.4-10.2); Carbon Dioxide 26 mmol/L (22-32); Chloride 89 mmol/L (98-107); Estimated Glomerular Filt Rate > 60 mL/min (>60); Globulin 3.5 g/dL (1.7-4.1); Glucose 117 mg/dL (70-99); HEMOLYSIS 19 (0-50); Lipase 1553 U/L (23-300); Sodium 133 mmol/L (137-145); Total Protein 8.4 g/dL (6.3-8.2)
[2024-06-19 05:36] LABS: Potassium 2.6 mmol/L (3.4-5.1)
--- NOTE | 2024-06-19 05:36 | EKG_ITS ---
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
--- NOTE | 2024-06-19 05:37 | EKG_ITS ---
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
[2024-06-19] MEDS: POTASSIUM CHLORIDE IN WATER 10 MEQ/100 ML PIGGYBACK 100 MEQ IV (05:44)
[2024-06-19 05:45] LABS: Troponin I < 0.012 ng/mL (0.01-0.034)
[2024-06-19 06:04] LABS: Magnesium 1.6 mg/dL (1.6-2.3)
[2024-06-19 06:42] LABS: Ur Creatinine Normal (Normal)
[2024-06-19 06:43] LABS: Ur Specific Gravity Normal (Normal); Urine Amphetamines Negative (Negative); Urine Barbiturates Negative (Negative); Urine Benzodiazepines Negative (Negative); Urine Cocaine Positive (Negative); Urine MDMA Negative (Negative); Urine Methadone Negative (Negative); Urine Opiates Negative (Negative); Urine Oxycodone Negative (Negative); Urine Phencyclidine Negative (Negative); Urine THC Positive (Negative); Urine Tricyclic Antidepressant Negative (Negative); Urine pH Normal (Normal)
[2024-06-19] MEDS: POTASSIUM CHLORIDE 20 MEQ TAB 40 MEQ PO (07:01)
== END 2024-06-19 07:46 | disposition home or self-care (01) ==
PROVIDERS: Emergency Provider Family Medicine
DX: K85.21 Alcohol induced acute pancreatitis with uninfected necrosis (principal); E87.6 Hypokalemia; W01.198A Fall on same level from slipping, tripping and stumbling with subsequent striking against other object, initial encounter
CPT/HCPCS: 70450; 71275; 74177; 80053; 80305; 80320; 81003; 83690; 83735; 84484; 85025; 93005; J1200; J1790; Q9967

== ENCOUNTER 2024-06-19 08:52 | Emergency (ER) | payer OTHER, SELFPAY ==
[2024-04-23 16:13] VITALS: BMI 22.8
[2024-06-19] VITALS (14 sets, daily range): BP systolic 123–182; BP diastolic 70–102; PULSE 95–141; RESP 0–36; TEMP 36.3; O2SAT 97–100
--- NOTE | 2024-06-19 05:36 | EKG_ITS ---
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
[2024-06-19] MEDS: SODIUM CHLORIDE 0.9% 1,000 ML 1000 ML IV (09:19)
[2024-06-19] MEDS: CEFEPIME 2 GM in SODIUM CHLORIDE 0.9% 100 ML IV (09:27)
[2024-06-19 09:42] LABS: Add Manual Diff / Slide Review NO; Basophils Absolute Auto 0 /uL (0-100); Basophils Percent Auto 0.9 % (0-2); Eosinophils Absolute Auto 0 /uL (0-450); Eosinophils Percent Auto 0.2 % (2-4); Hematocrit 37.9 % (36-46); Hemoglobin 13.1 g/dL (12.0-16.0); Lymphocytes Absolute Auto 800 /uL (1100-4500); Lymphocytes Percent Auto 16.6 % (25-40); Mean Corpuscular HGB Conc 34.7 % (30-36); Mean Corpuscular Hemoglobin 34.3 PG (26-34); Mean Corpuscular Volume 98.8 fL (80-100); Monocytes Absolute Auto 700 /uL (0-900); Monocytes Percent Auto 13.9 % (3-14); Neutrophils Absolute Auto 3300 /uL (1500-7000); Neutrophils Percent Auto 68.4 % (50-75); Platelet Count 161 X10^3/uL (150-400); Red Blood Cell Count 3.83 X10^6/uL (4.0-5.2); Red Cell Distribution Width 12.4 % (11.6-14.8); White Blood Cell Count 4.9 X10^3/uL (4.5-11.0)
--- NOTE | 2024-06-19 09:52 | ED.ABDPAIN ---
HPI - Abdominal Pain General Chief Complaint: Abdominal Pain Stated Complaint: Chest pain Time Seen by Provider: 06/19/24 09:01 Source: patient Mode of arrival: Ambulatory History of Present Illness HPI narrative: Patient is a 48-year-old female history of [place] disease alcohol abuse pancreatitis presenting today for abdominal pain nausea vomiting. She was here with her I called them back actually. She has been having ongoing abdominal pain with nausea vomiting for at least 4 days. Has been reports pretty severe pain. Not able to eat anything. He does say that she was able to drink a couple of margaritas over the weekend. However having more pain this morning. She was here and evaluated just a few hours ago after a trip and fall and having some left flank pain. Initial preliminary read as pancreatitis without abscess there is pancreatic ductal dilatation with small cystic foci in the pancreas as seen previously may represent pancreatic pseudocyst. However over read this morning was concerning for pancreatic tail representing small area of necrosis. Suspect acute necrotic collection is measuring 3.3 x 1.1 cm near pancreatic tail. Patient was currently sleeping has no complaints. She was found to be hypokalemic this morning potassium 2.6 she did tolerate some p.o. potassium. Related Data Home Medications Medication Instructions Recorded Confirmed darshanadha extract 120 mg capsule 120 mg PO DAILY 04/23/24 04/23/24 omeprazole 20 mg tablet,delayed 20 mg PO DAILY 04/23/24 04/23/24 release Previous Rx's Medication Instructions Recorded hydrocodone 5 mg-acetaminophen 325 1 tab PO Q6H PRN pain #20 tabs 06/19/24 mg tablet ondansetron 4 mg disintegrating 4 mg PO Q8H PRN nausea and 06/19/24 tablet vomiting #30 tabs potassium chloride 20 mEq 20 meq PO BID #8 tabs 06/19/24 tablet,extended release Allergies Allergy/AdvReac Type Severity Reaction Status Date / Time codeine Allergy Verified 04/23/24 14:35 morphine Allergy Verified 04/23/24 14:35 Penicillins Allergy Rash Verified 04/24/24 16:27 Patient History Medical History Pancreatitis Alcohol abuse History of arteriovenous malformation (AVM) Alcohol use disorder [place] disease Social History household members: spouse Smoking Status: Never smoker alcohol intake: current Smoking Status: Never smoker alcohol intake frequency: 3 or more drinks per day Exam Initial Vital Signs Initial Vital Signs: Vital Signs Temperature 97.3 F L 06/19/24 09:00 Pulse Rate 111 H 06/19/24 09:00 Respiratory Rate 18 06/19/24 09:00 Blood Pressure 179/101 H 06/19/24 09:00 Pulse Oximetry 100 06/19/24 09:00 Oxygen Delivery Method Room Air 06/19/24 09:00 GENERAL: Sleepy arousable 48-year-old female and in no acute distress. HEENT: Head atraumatic,EOMI, pupils reactive, face symmetric, moist mucous membranes CARDIOVASCULAR: Regular rate and rhythm without murmurs, rubs or gallops. RESPIRATORY: Breath sounds equal bilaterally, no wheezes rales or rhonchi. ABDOMEN: Soft, no significant distention EXTREMITIES: Normal range of motion, no clubbing or edema. Neurovascularly intact NEUROLOGICAL: Alert and oriented x4.Normal gait and speech. Cranial nerves II through XII grossly intact. SKIN: Warm, dry, no laceration, no petechiae, no rashes or lesions. Course Orders Ordered: Discontinued Medications Hydromorphone HCl (Hydromorphone 0.5 Mg Inj) 0.5 mg IV NOW ONE Stop: 06/19/24 13:09 Last Admin: 06/19/24 13:10 Dose: 0.5 mg Documented By: ELENO Sodium Chloride (Normal Saline 0.9%) 1,000 mls @ 1,000 mls/hr IV BOLUS ONE Stop: 06/19/24 10:00 Last Infusion: 06/19/24 10:56 Dose: Infused Documented By: Admin: 06/19/24 09:19 Dose: 1,000 mls/hr Documented By: WILL Cefepime HCl 2 gm/ Sodium (Chloride) 100 mls @ 200 mls/hr IV NOW ONE Stop: 06/19/24 09:02 Last Infusion: 06/19/24 10:28 Dose: Infused Documented By: Admin: 06/19/24 09:27 Dose: 200 mls/hr Documented By: MARIBEL POTASSIUM CHLORIDE IN WATER (Potassium Cl 10 Meq/100 Ml Ashley) 10 meq in 100 mls @ 100 mls/hr IV Q1H AUBREY Stop: 06/19/24 14:14 Last Admin: 06/19/24 13:05 Dose: 100 mls/hr Documented By: Infusion: 06/19/24 12:33 Dose: Infused Documented By: Admin: 06/19/24 11:33 Dose: 100 mls/hr Documented By: Infusion: 06/19/24 11:28 Dose: Infused Documented By: Admin: 06/19/24 10:28 Dose: 100 mls/hr Documented By: MARIBEL Sodium Chloride (Normal Saline 0.9%) 1,000 mls @ 125 mls/hr IV CONT AUBREY Last Admin: 06/19/24 10:29 Dose: 125 mls/hr Documented By: MARIBEL Vital Signs Vital signs: Vital Signs - 8 hr 06/19/24 10:56 06/19/24 10:56 06/19/24 11:00 Pulse Rate 127 H 115 H Respiratory Rate 4 L 0 L Blood Pressure 158/79 H Pulse Oximetry 100 100 06/19/24 11:00 06/19/24 11:30 06/19/24 12:00 Pulse Rate 115 H 114 H Respiratory Rate 21 21 Blood Pressure 153/83 H Pulse Oximetry 99 99 06/19/24 12:30 06/19/24 12:55 06/19/24 12:55 Pulse Rate 117 H 102 H Respiratory Rate 12 Blood Pressure 138/73 Pulse Oximetry 99 99 06/19/24 13:00 06/19/24 13:00 06/19/24 13:30 Pulse Rate 106 H 95 H Respiratory Rate 12 17 Blood Pressure 140/77 Pulse Oximetry 98 97 06/19/24 13:30 Pulse Rate Respiratory Rate Blood Pressure 123/70 Pulse Oximetry MDM - Abdominal Pain Lab Data 06/19/24 09:32 06/19/24 09:32 Labs: Lab Results 06/19/24 06/19/24 Range/Units 09:32 11:34 WBC 4.9 (4.5-11.0) X10^3/uL RBC 3.83 L (4.0-5.2) X10^6/uL Hgb 13.1 (12.0-16.0) g/dL Hct 37.9 (36-46) % MCV 98.8 (80-100) fL MCH 34.3 H (26-34) PG MCHC 34.7 (30-36) % RDW 12.4 (11.6-14.8) % Plt Count 161 (150-400) X10^3/uL Neut % (Auto) 68.4 (50-75) % Lymph % (Auto) 16.6 L (25-40) % Otero % (Auto) 13.9 (3-14) % Eos % (Auto) 0.2 L (2-4) % Baso % (Auto) 0.9 (0-2) % Neut # (Auto) 3300 (0064-5265) /uL Lymph # (Auto) 800 L (8599-9643) /uL Otero # (Auto) 700 (0-900) /uL Eos # (Auto) 0 (0-450) /uL Baso # (Auto) 0 (0-100) /uL Sodium 136 L (137-145) mmol/L Potassium 2.7 L* (3.4-5.1) mmol/L Chloride 94 L (98-107) mmol/L Carbon Dioxide 27 (22-32) mmol/L BUN 3 L (7-17) mg/dL Creatinine 0.72 (0.52-1.04) mg/dL Estimated GFR > 60 (>60) mL/min BUN/Creatinine Ratio 4.2 L (6-22) Glucose 105 H (70-99) mg/dL Lactate 2.6 H 1.8 (0.7-2.1) mmol/L Calcium 9.0 (8.4-10.2) mg/dL Total Bilirubin 2.0 H (0.2-1.3) mg/dL AST 279 H (14-36) IU/L ALT 158 H (<35) IU/L Alkaline Phosphatase 116 (38-126) U/L Total Protein 7.7 (6.3-8.2) g/dL Albumin 4.5 (3.5-5.0) g/dL Globulin 3.2 (1.7-4.1) g/dL Albumin/Globulin Ratio 1.4 (1.0-2.8) Lipase 721 H D (23-300) U/L Imaging Data CT scan - abdomen/pelvis: Radiologist's Impression: PROCEDURE: CT TRAUMA CHEST ABDOMEN PELVIS INDICATIONS: Fall, flank pain TECHNIQUE: MDCT axial chest images were obtained with IV contrast in the arterial phase. Maximum intensity projections and multiplanar reformats were obtained. MDCT axial abdomen and pelvis images were obtained with IV contrast in the portal venous phase. Multiplanar reformats were obtained. Optional delayed phase scanning may also be obtained Advanced techniques were used to lower patient radiation exposure. COMPARISON:[facility], CT, CT CHEST ABD PEL W CON, 02/12/2023, 7:50. [facility], CT, CT ABDOMEN PELVIS W CON, 04/23/2024, 10:42. FINDINGS Image Quality: Diagnostic. Chest: Lungs and pleura: No pneumothorax or hemothorax. No pulmonary contusions or lacerations. No solid pulmonary nodule requiring follow-up. Vascular: No dissection or pseudoaneurysm. No incidental central pulmonary embolism. No hemopericardium. Aberrant course of the right subclavian artery. Mediastinum: No mediastinum hematoma. No suspicious mass or lymph nodes. No actionable thyroid nodules. Chest wall: Intact clavicles, scapula, and glenohumeral joint. No displaced rib fractures. Breast implants. Thoracic spine: No acute fracture or traumatic subluxation. ABDOMEN and PELVIS: Liver: No laceration or capsular hematoma. Steatosis. Gallbladder: Unremarkable. Biliary system: Non-dilated. Pancreas: Peripancreatic fat stranding. Small cystic foci within the pancreatic tail. Pancreatic ductal dilation is present measuring up to 5 mm. Small fluid collection is seen near the pancreatic tail measuring 3.3 x 1.1 cm. Adjacent altered parenchymal enhancement is seen. Spleen: No laceration or capsular hematoma. Adrenals: No suspicious nodules. Kidneys: No contrast extravasation or hydronephrosis. No solid masses. Vessels and lymph nodes: No pathology lymph nodes by size criteria. No dissection or aneurysm. No retroperitoneal hematoma. Bowel and peritoneum: No suspicious region of mesenteric hemorrhage or hemoperitoneum. No bowel obstruction. Pelvis: Small amount pelvic free fluid may be physiologic. Probable follicular cysts in the ovaries. Bladder is unremarkable. Pelvic ring and femurs: No pelvic ring disruption. No hip fractures. Lumbar spine: No acute fracture or traumatic subluxation. Abdominal wall: No drainable fluid collection or hematoma. IMPRESSION: No acute traumatic injury to the chest, abdomen, or pelvis. Suspected pancreatitis. Altered parenchymal enhancement near the pancreatic tail may represent small area of necrosis. Suspected acute necrotic collection is seen measuring 3.3 x 1.1 cm near the pancreatic tail. There is also ductal dilation. Follow-up pancreas protocol MRI and/or MRCP suggested to evaluate for resolution. Hepatic steatosis. Other findings above. Changes to the preliminary report communicated to Dr. Magana. Dictated by: Uriel Carroll M.D. 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 Pertinent findings: WBC is 4.9 Lactate 2.6 repeat 1.8 Potassium is 2.7 previously 2.6 Creatinine 0.72 Bilirubin 2.0 AST 279 ALT 158 lipase 721, liver enzymes and bilirubin are chronically elevated and appears stable and unchanged in fact slightly improved Imaging studies independently reviewed: CT chest abdomen and pelvis concerning for a necrotizing pancreatitis. She was area of necrosis in the tail measuring 3.3 x 1.1 cm Consultations: Hospitalist here at [facility] recommends transfer for higher level of care for potential necrotizing pancreatitis 11:17 Dr. Beaulieu hospitalist at [place] accepts patient Treatments: IV fluids, IV K rider, cefepime Re-evaluations: Patient's pain is well-controlled nausea or vomiting Discussion: Patient 48-year-old female history of alcohol abuse and pancreatitis presenting today as a return visit. CT from earlier this morning did show concern for possible necrosis of the pancreas. She has no leukocytosis lactate mildly elevated at 2.6 but improved. Has hypokalemia as well potassium 2.6 given p.o. potassium and it was 2.7. Abdomen is relatively soft nontender no peritoneal signs. She was actually asking for something to drink. Due to potential necrotizing pancreatitis on CT patient was transferred to higher level of care. Vitals are stable no leukocytosis given cefepime. Discharge Plan Departure Patient Disposition: [facility] Clinical Impression: Acute necrotizing pancreatitis Prescriptions: No Action omeprazole 20 mg Tablet,Delayed Release (Dr/Ec) 20 mg PO DAILY ashwagandha extract 120 mg Capsule 120 mg PO DAILY hydrocodone-acetaminophen 5-325 mg tablet 1 tab PO Q6H PRN (Reason: pain) Qty: 20 0RF ondansetron 4 mg tablet,disintegrating 4 mg PO Q8H PRN (Reason: nausea and vomiting) Qty: 30 0RF potassium chloride 20 mEq tablet extended release 20 meq PO BID Qty: 8 0RF
[2024-06-19 09:53] LABS: Lipase 721 U/L (23-300)
[2024-06-19 09:54] LABS: Alanine Aminotransferase 158 IU/L (<35); Albumin 4.5 g/dL (3.5-5.0); Albumin Globulin Ratio 1.4 (1.0-2.8); Alkaline Phosphatase 116 U/L (38-126); Aspartate Aminotransferase 279 IU/L (14-36); BUN Creatinine Ratio 4.2 (6-22); Blood Urea Nitrogen 3 mg/dL (7-17); Carbon Dioxide 27 mmol/L (22-32); Chloride 94 mmol/L (98-107); Estimated Glomerular Filt Rate > 60 mL/min (>60); Globulin 3.2 g/dL (1.7-4.1); Glucose 105 mg/dL (70-99); HEMOLYSIS < 15 (0-50); Lactate (Lactic Acid) 2.6 mmol/L (0.7-2.1); Sodium 136 mmol/L (137-145); Total Protein 7.7 g/dL (6.3-8.2)
[2024-06-19 09:55] LABS: Potassium 2.7 mmol/L (3.4-5.1)
[2024-06-19] MEDS: POTASSIUM CHLORIDE IN WATER 10 MEQ/100 ML PIGGYBACK 100 MEQ IV ×3 (10:28→13:05)
[2024-06-19] MEDS: SODIUM CHLORIDE 0.9% 1,000 ML 125 ML IV (10:29)
[2024-06-19 11:14] LABS: Reflexed Lactate in 2 Hours Y
[2024-06-19 11:57] LABS: Lactate 2HR (Lactic Acid Rflx) 1.8 mmol/L (0.7-2.1)
--- NOTE | 2024-06-19 12:00 | PC.NURSE ---
Started transfer. [facility], 8 boarding, not great odds for placement. [facility], 0 beds, not great odds for placement. [facility] Nurse Report: [phone] Dr. Pawel Beaulieu accepting at 1132. [facility] ETA 1400
[2024-06-19] MEDS: HYDROMORPHONE 0.5 MG INJ IV (13:10)
== END 2024-06-19 13:44 | disposition short-term general hospital (02) ==
PROVIDERS: Emergency Provider Emergency Medicine
DX: K85.21 Alcohol induced acute pancreatitis with uninfected necrosis (principal); E87.6 Hypokalemia; W01.198A Fall on same level from slipping, tripping and stumbling with subsequent striking against other object, initial encounter
CPT/HCPCS: 36415; 70450; 71275; 74177; 80053; 80305; 80320; 81003; 83605; 83690; 83735; 84484; 85025; 87040; 93005; 93010; 96361; 96365; 96366; 96367; 96374; 96375; 99283; 99284; J0692; J1171; J1200; J1790; Q9967